=== PATIENT | female | born 1950 | race Caucasian/White ===

== ENCOUNTER 2019-09-19 08:16 | Outpatient (CLI) | payer MEDICARE, SELFPAY ==
--- NOTE | ~2019-09-19 | MM_ITS ---
EXAMINATION: MM screening anitha BI w madhu HISTORY: Screening mammogram TECHNIQUE: Craniocaudal and mediolateral oblique 3-D tomosynthesis images were obtained and synthetic 2-D images were generated. CAD analysis was submitted and interpreted. COMPARISON: 05/03/2018, 04/30/2016, 06/14/2014 bilateral digital screening mammogram examinations BREAST PARENCHYMAL COMPOSITION: The breasts are almost entirely fatty. FINDINGS: Occasional benign calcifications. There is no evidence of suspicious mass, calcification, o r architectural distortion to suggest malignancy in either breast. There has been no suspicious inter justine change. IMPRESSION: 1. No mammographic evidence of malignancy. 2. Recommend routine screening mammography in one year. BI-RADS Category 2: Benign finding(s). Reviewed, dictated and finalized at location A.
== END 2019-09-19 08:17 | disposition home or self-care (01) ==
LOC: ANHIMG 08:26
DX: Z12.31 Encounter for screening mammogram for malignant neoplasm of breast (principal)
CPT/HCPCS: 77063; 77067

== ENCOUNTER 2019-12-29 15:52 | Emergency (ER) | payer MEDICARE, SELFPAY ==
--- NOTE | ~2019-12-29 | XR_ITS ---
EXAMINATION: XR foot LT min 3V DATE: 12/29/2019 16:17 INDICATION: Left foot pain. TECHNIQUE: 4 views of left foot were obtained. COMPARISON: None. FINDINGS: Bone alignment is normal. No fracture. There is mild osteoarthritis of first metatarsophala ngeal joint. There are enthesophytes at the posterior and plantar aspects of calcaneal tuberosity. IMPRESSION: 1. Mild osteoarthritis of first metatarsophalangeal joint. Reviewed, dictated and finalized at location A.
--- NOTE | 2019-12-29 15:54 | ED.EXTPRO ---
HPI - Extremity Problem General Chief complaint: Extremity Injury, Lower Stated complaint: L/foot swollen Time Seen by Provider: 12/29/19 16:03 Source: patient and RN notes reviewed Mode of arrival: ambulatory Limitations: no limitations History of Present Illness HPI Narrative: 69-year-old female presents with concern for left foot swelling, pain. She denies any known injury or trauma. She reports dorsal foot pain. Reports pain at rest, worsening pain with weightbearing. She reports pain is sometimes relieved with ice and elevation. She denies any weakness, numbness, warmth, redness, open skin. Complaint: extremity swelling Related Data Home Medications Medication Instructions Recorded Confirmed fluoxetine 40 mg DAILY 02/25/19 02/25/19 propranolol 20 mg DAILY 02/25/19 02/25/19 simvastatin 20 mg DAILY 02/25/19 02/25/19 Allergies Allergy/AdvReac Type Severity Reaction Status Date / Time Penicillins Allergy Unknown Rash Verified 12/29/19 16:07 morphine AdvReac Unknown Nausea and Verified 12/29/19 16:07 Vomiting Review of Systems Review of Systems: Narrative: CONSTITUTIONAL: Denies malaise, chills, sweats, or fever. CARDIOVASCULAR: Denies chest pain, palpitations, or edema. RESPIRATORY: Denies cough or dyspnea. SKIN: Denies redness, bruising MUSCULOSKELETAL: Reports left foot pain and swelling NEUROLOGIC: Denies numbness, weakness All systems reviewed & are unremarkable except as noted in HPI and below PMFSH Social History Social History Gender identity (if verbalized by the patient): Female Comments At time of signature, agree with nursing past medical, surgical, social and family history. There is no relevant family history pertinent to the presenting complaint Exam Narrative: Exam Narrative: GENERAL: Well-appearing, well-nourished, and in no acute distress. HEAD: Normocephalic, atraumatic. EYES: PERRLA, conjunctivae clear NECK: Supple. CHEST: Speaks in full sentences. No respiratory distress. HEART: Regular rate and rhythm. Normal and equal peripheral pulses. EXTREMITIES: Left foot, digits of left foot have normal strength and sensation, normal range of motion. Mild dorsal edema without erythema or ecchymosis. 5/5 strength with ankle and digit flexion and extension. Normal sensation with sensitivity to light touch and pain. No open wounds, no skin tenting, no devitalized tissue or atrophy, no trophic changes, no obvious deformity, alignment normal, no point tenderness, nearby joints and structures intact. Distal pulses palpable and equal bilaterally, skin warm, dry, pink. Capillary refill less than 3 seconds. SKIN: Warm, dry, no rash. NEURO: Alert and oriented x3. PSYCH: Normal mood and affect Course Course Emergency Course: Patient is aware of diagnosis, understands and agrees to treatment plan. Anticipatory guidance given. Patient agrees to follow-up as directed and is aware of reasons to seek care at the emergency department. Portions of this record may have been created with voice recognition software Vital Signs Vital signs: Vital Signs Temperature 99.0 F 12/29/19 15:55 Pulse Rate 51 L 12/29/19 15:55 Respiratory Rate 17 12/29/19 15:55 Blood Pressure 132/59 L 12/29/19 15:55 Pulse Oximetry 96 12/29/19 15:55 Temperature 99.0 F 12/29/19 15:55 Pulse Rate 51 L 12/29/19 15:55 Respiratory Rate 17 12/29/19 15:55 Blood Pressure 132/59 L 12/29/19 15:55 Pulse Oximetry 96 12/29/19 15:55 Reviewed. Patient has history of hypertension MDM - Extremity (Nontraumatic) MDM Narrative Medical decision making narrative: Patients pain is consistent with musculoskeletal etiology. No signs of neurological or vascular compromise on exam. Compartments and tissues are soft without signs of compartment syndrome. Pain is felt appropriate for further evaluation on an outpatient basis. Imaging Data My impression: Images reviewed, interpreted by radiologist, agree, see report. Radiol
[2019-12-29 15:55] VITALS: BP 132/59; PULSE 51; RESP 17; TEMP 37.2; O2SAT 96
== END 2019-12-29 16:37 | disposition home or self-care (01) ==
PROVIDERS: Emergency Provider Nurse Practitioner; PCP Family Medicine
DX: M19.072 Primary osteoarthritis, left ankle and foot (principal); E78.00 Pure hypercholesterolemia, unspecified; F32.9 Major depressive disorder, single episode, unspecified
CPT/HCPCS: 73630; 99213; G0463

== ENCOUNTER 2020-06-27 10:27 | Outpatient (CLI) | payer MEDICARE, SELFPAY ==
--- NOTE | ~2020-06-27 | DEXA_ITS ---
Bone Density Report Name: Marilee Shirley Age: 70 Sex: Female Ethnicity: White Date of : 1950 Indication: osteopenia; height loss; asthma or emphysema; hysterectomy; Referring Provider: Baldemar, Jerrod Almeida Study: Bone densitometry was performed. Exam Date: June 27, 2020 Accession number: [id number] Bone Density: Region BMD T-score Z-score Classification AP Spine (L1-L4) 1.041 -0.1 2.2 Normal Femoral Neck (Left) 0.633 -1.9 0.0 Osteopenia Total Hip (Left) 0.776 -1.4 0.3 Osteopenia Total Hip Bilateral Avg 0.763 -1.5 0.2 Osteopenia Femoral Neck (Right) 0.619 -2.1 -0.2 Osteopenia Total Hip (Right) 0.748 -1.6 0.0 Osteopenia World Health Organization criteria for BMD impression classify patients as: Normal (T-score at or above -1.0), Osteopenia (T-score between -1.0 and -2.5), or Osteoporosis (T-score at or below -2.5). 10-year Fracture Risk(1): Major Osteoporotic Fracture 13% Hip Fracture 2.8% Reported Risk Factors: [place] (), Neck BMD=0.619, BMI=24.7 (1) FRAX(R) Version 3.08. Fracture probability calculated for an untreated patient. Fracture probability may be lower if the patient has received treatment. Previous Exams: Region Exam Age BMD T-score BMD Change BMD Change Date g/cm2 vs Baseline vs Previous AP Spine(L1-L4) 06/27/2020 70 1.041 -0.1 0.021(2.0%)# -0.018(-1.7%) 05/18/2018 68 1.059 0.1 0.039(3.8%)# 0.029(2.8%)* 04/30/2016 65 1.030 -0.2 0.010(1.0%)# 0.007(0.7%)# 09/05/2011 61 1.023 -0.2 0.003(0.3%)# -0.044(-4.1%)# 12/15/2007 57 1.067 0.2 0.047(4.6%)* 0.030(2.9%)* 12/08/2005 55 1.037 -0.1 0.017(1.6%) 0.017(1.6%) 08/02/2003 53 1.020 -0.2 Total Hip(Left) 06/27/2020 70 0.776 -1.4 0.007(0.9%)# 0.004(0.6%) 05/18/2018 68 0.772 -1.4 0.002(0.3%)# 0.000(0.0%) 04/30/2016 65 0.771 -1.4 0.002(0.2%)# -0.009(-1.2%)# 09/05/2011 61 0.781 -1.3 0.011(1.5%)# -0.005(-0.6%)# 12/15/2007 57 0.786 -1.3 0.016(2.1%) N/A 12/08/2005 55 N/A N/A 08/02/2003 53 0.769 -1.4 Total Hip(Right) 06/27/2020 70 0.748 -1.6 -0.032(-4.1%)# -0.009(-1.2%) 05/18/2018 68 0.757 -1.5 -0.023(-3.0%)# -0.021(-2.7%) 04/30/2016 65 0.778 -1.3 -0.002(-0.3%)# -0.017(-2.1%)# 09/05/2011 61 0.795 -1.2 0.015(1.9%)# 0.002(0.2%)# 12/15/2007 57 0.793 -1.2 0.013(1.7%) 0.033(4.3%)* 12/08/2005 55 0.760 -1.5 -0.020(-2.5%) -0.020(-2.5%) 08/02/2003 53 0.780 -1.3 *Denotes significan
== END 2020-06-27 10:28 | disposition home or self-care (01) ==
LOC: ANHIMG 10:30
PROVIDERS: PCP Family Medicine; Visit Provider Family Medicine
DX: Z13.820 Encounter for screening for osteoporosis (principal); E55.9 Vitamin D deficiency, unspecified; M81.0 Age-related osteoporosis without current pathological fracture; M85.852 Other specified disorders of bone density and structure, left thigh; M85.851 Other specified disorders of bone density and structure, right thigh
CPT/HCPCS: 77080

== ENCOUNTER 2020-09-21 07:15 | Outpatient (CLI) | payer MEDICARE, SELFPAY ==
--- NOTE | ~2020-09-21 | MM_ITS ---
EXAMINATION: MM screening anitha BI w madhu HISTORY: Screening mammogram TECHNIQUE: Craniocaudal and mediolateral oblique 3-D tomosynthesis images were obtained and synthetic 2-D images were generated. CAD analysis was submitted and interpreted. COMPARISON: No prior mammogram is available for comparison at this institution. BREAST PARENCHYMAL COMPOSITION: The breasts are almost entirely fatty. FINDINGS: History of bilateral breast reduction surgery 15 years ago. Occasional right breast benign calcifications. There is no evidence of suspicious mass, calcification , or architectural distortion to suggest malignancy in either breast. There has been no suspicious in terval change. IMPRESSION: 1. No mammographic evidence of malignancy. 2. Recommend routine screening mammography in one year. BI-RADS Category 2: Benign finding(s). Reviewed, dictated and finalized at location A.
== END 2020-09-21 07:16 | disposition home or self-care (01) ==
LOC: ANHIMG 07:17
PROVIDERS: PCP Family Medicine; Visit Provider Family Medicine
DX: Z12.31 Encounter for screening mammogram for malignant neoplasm of breast (principal)
CPT/HCPCS: 77063; 77067

== ENCOUNTER 2021-07-06 17:45 | Emergency (ER) | payer MEDICARE, SELFPAY ==
[2021-07-06 17:54] VITALS: BP 136/70; PULSE 60; RESP 18; TEMP 36.8; O2SAT 99
--- NOTE | 2021-07-06 18:02 | ED.URI ---
HPI - URI/Sore Throat General Chief Complaint: Upper Respiratory Infection Stated Complaint: Cough,Congestion Time Seen by Provider: 07/06/21 18:03 Source: patient Mode of arrival: ambulatory Limitations: no limitations History of Present Illness HPI Narrative: Marilee Shirley is a 71 yo female with a PMH of depression, hyothyroid,high cholesterol, heart palpitations, who comes to express care with cough and congestion. She states she has fits of coughing and she is coughing up some green mucus.patient states that she has had this for 10 days, has not been taking medication has been having a temperature running about 99 but no recent elevation. She has not called her primary care physician. Related Data Home Medications Medication Instructions Recorded Confirmed cetirizine [Allergy Relief 10 mg PO PRN PRN 07/06/21 07/06/21 (cetirizine)] fluoxetine 40 mg PO DAILY 07/06/21 07/06/21 fluticasone furoate-vilanterol 2 inh INHALATION DAILY 07/06/21 07/06/21 [Breo Ellipta] levothyroxine 50 mcg PO DAILY 07/06/21 07/06/21 metoprolol succinate 25 mg PO DAILY 07/06/21 07/06/21 simvastatin 20 mg PO DAILY 07/06/21 07/06/21 Allergies Allergy/AdvReac Type Severity Reaction Status Date / Time caffeine [Cafergot] Allergy Unknown chest Verified 07/06/21 17:56 pain/ palpitations. doxycycline Allergy Unknown yeast Verified 07/06/21 17:56 infection ergotamine Allergy Unknown chest Verified 07/06/21 17:56 pain/ palpitations. Penicillins Allergy Unknown Rash Verified 07/06/21 17:56 potassium chloride Allergy Unknown Hives Verified 07/06/21 17:56 morphine AdvReac Unknown Nausea and Verified 07/06/21 17:56 Vomiting Review of Systems Review of Systems: CONSTITUTIONAL: Denies fever, chills, sweats. EYES: Denies visual changes, redness, discharge. ENT: Denies rhinorrhea, congestion, sore throat, otalgia. States of sinus congestion CARDIOVASCULAR: Denies chest pain, palpitations, edema. RESPIRATORY: Denies dyspnea, wheezing, has cough GASTROINTESTINAL: Denies abdominal pain, nausea, vomiting, diarrhea. GENITOURINARY: Denies dysuria, hematuria, abnormal discharge SKIN: Denies rash or itching. NEUROLOGIC: Denies numbness, or focal weakness. PSYCHIATRIC: Denies anxiety or depression. [facility] Past Medical History Medical History (Updated 07/06/21 @ 18:26 by Octavia Bailey CNP) Depression Heart palpitations High cholesterol Hypothyroid Surgical History Surgical History History of atrial septal defect repair Social History Social History (Updated 07/06/21 @ 18:21 by Octavia Bailey CNP) Smoking status: Never smoker Alcohol intake: current Gender identity (if verbalized by the patient): Female Comments At time of signature, I agree with nursing past medical, surgical, social and family history. There is no relevant family history pertinent to the presenting complaint. Exam Narrative: GENERAL: This is a well-nourished, well-developed patient, in mild distress. HEAD: normocephalic, atraumatic. EYES: Sclera clear/white. Vision is grossly intact. EARS: External ears normal, Hearing grossly intact. NOSE: External nose normal without nasal discharge, nares without redness, no rhinorrhea. THROAT: Mucous membranes moist, NECK: Neck supple, non-tender CARDIOVASCULAR: Regular rate and rhythm without murmurs, gallops, or rubs. RESPIRATORY: Coarse to auscultation. Dry cough breath sounds equal bilaterally. No wheezes, rales, or rhonchi. GASTROINTESTINAL: Abdomen soft, non-tender, SKIN: warm, intact with no suspicious lesions or rash, good texture and turgor. NEURO: awake, alert, and oriented to person, place and time. There were no obvious focal neurologic abnormalities. Steady gait EXTREMITIES: Normal range of motion. BACK: Nontender without deformity Course Course Emergency Course: Patient comes a dry cough feels like she is coughing u
== END 2021-07-06 18:26 | disposition home or self-care (01) ==
PROVIDERS: Emergency Provider Nurse Practitioner; PCP Family Medicine
DX: R05.9 Cough, unspecified (principal); J01.10 Acute frontal sinusitis, unspecified; E78.00 Pure hypercholesterolemia, unspecified; A03.9 Shigellosis, unspecified; F32.A Depression, unspecified
CPT/HCPCS: 99213; G0463

== ENCOUNTER 2024-03-10 14:54 | Outpatient (CLI) | payer MEDICARE, SELFPAY ==
--- NOTE | ~2024-03-10 | DEXA_ITS ---
Bone Density Report Name: FUNMILAYO ESTRELLA Age: 73 Sex: Female Ethnicity: White Date of : 1950 Indication: osteopenia; height loss; asthma or emphysema; end stage renal disease; hysterectomy; Referring Provider: KIRK, ALEX Almeida Study: Bone densitometry was performed. Exam Date: March 10, 2024 Accession number: [id number] Bone Density: Region BMD T-score Z-score Classification AP Spine(L1-L4) 1.061 0.1 2.6 Normal Femoral Neck (Left) 0.602 -2.2 -0.1 Osteopenia Total Hip (Left) 0.834 -0.9 0.9 Normal Femoral Neck (Right) 0.613 -2.1 0.0 Osteopenia Total Hip (Right) 0.814 -1.1 0.8 Osteopenia Total Hip Mean 0.824 -1.0 0.9 Normal World Health Organization criteria for BMD impression classify patients as: Normal (T-score at or above -1.0), Osteopenia (T-score between -1.0 and -2.5), or Osteoporosis (T-score at or below -2.5). 10-year Fracture Risk(1): Major Osteoporotic Fracture 15% Hip Fracture 4.0% Reported Risk Factors: [place] (), Neck BMD=0.602, BMI=25.3 (1) FRAX(R) Version 3.08. Fracture probability calculated for an untreated patient. Fracture probability may be lower if the patient has received treatment. Previous Exams: Region Exam Age BMD T-score BMD Change BMD Change Date g/cm2 vs Baseline vs Previous AP Spine (L1-L4) 03/10/2024 73 1.061 0.1 0.038 (3.7%)# 0.020 (1.9%) 06/27/2020 70 1.041 -0.1 0.018 (1.8%)# -0.018 (-1.7%) 05/18/2018 68 1.059 0.1 0.036 (3.5%)# 0.029 (2.8%)* 04/30/2016 65 1.030 -0.2 0.007 (0.7%)# 0.007 (0.7%)# 09/05/2011 61 1.023 -0.2 Total Hip(Left) 03/10/2024 73 0.834 -0.9 0.053 (6.8%)# 0.058 (7.4%)* 06/27/2020 70 0.776 -1.4 -0.005 (-0.6%) 0.004 (0.6%) 05/18/2018 68 0.772 -1.4 -0.009 (-1.2%) 0.000 (0.0%) 04/30/2016 65 0.771 -1.4 -0.009 (-1.2%) -0.009 (-1.2%) 09/05/2011 61 0.781 -1.3 Total Hip(Right) 03/10/2024 73 0.814 -1.1 0.019 (2.4%)# 0.066 (8.8%)* 06/27/2020 70 0.748 -1.6 -0.047 (-5.9%) -0.009 (-1.2%) 05/18/2018 68 0.757 -1.5 -0.038 (-4.8%) -0.021 (-2.7%) 04/30/2016 65 0.778 -1.3 -0.017 (-2.1%) -0.017 (-2.1%) 09/05/2011 61 0.795 -1.2 *Denotes significance at 95% confidence level, LSC for AP Spine = 0.022 g/cm2, LSC for Total Hip = 0.027 g/cm2 # Denotes dissimilar scan types or analysis methods Clinical Information Provided by Patient: Has used the following medications: Vitamin D Has the following medical conditions: Asthma or Emphysema, End stage renal disease, Hysterectomy Patient maximum height was 63 Menopause Age: 40 Drinks caffeinated beverages Onset of menses at age 12 Number of children 4 Impression: The patient has low bone mass, based on the Left Femoral Neck T-score. The patient has an estimated ten-year risk of hip fracture of 4% and an estimated ten-year risk of major fracture of 15%, based on the WHO FRAX algorithm. No significant bone loss was observed. Discussion: BONE DENSITY IS LOW AT ONE OR MORE SKELETAL SITES. THE PATIENT'S BMD AND CLINICAL RISK FACTORS CONTRIBUTE TO THIS PATIENT'S INCREASED RISK OF FRACTURE. This patient's lowest T-score is low at one or more skeletal sites. It meets the World Health Organization's (WHO) criteria for ?low bone mass? (T-score between -1.0 and -2.5). The patient's 10-year risk of hip fracture as calculated by FRAX exceeds the threshold where pharmacological therapy is recommended by the National Osteoporosis Foundation (NOF). However, all treatment decisions require clinical judgment and consideration of individual patient factors, including patient preferences, comorbidities, previous drug use, risk factors not captured in the FRAX model (e.g., frailty, falls, vitamin D deficiency, increased bone turnover, interval significant decline in bone density) and possible under or overestimation of fracture risk by FRAX. The patient should follow a healthful lifestyle (good nutrition with adequate calcium and vitamin D, and appropriate weight-bearing exercise). Follow-Up: Consider a repeat BMD and Vertebral Fracture Assessment (VFA) exam in 2 years or sooner if medically necessary, to reassess this patient's status. Reported by: CAMILA on 03/10/2024 3:59:00 PM. Reviewed, dictated and finalized at location ALuis E MADERA
--- NOTE | ~2024-03-10 | MM_ITS ---
EXAMINATION: MM screening anitha BI w madhu HISTORY: Screening TECHNIQUE: Craniocaudal and mediolateral oblique 3-D tomosynthesis images were obtained and synthetic 2-D images were generated. CAD analysis was submitted and interpreted. COMPARISON: Comparison to multiple prior studies sequentially, with oldest reviewed study dated 03/2016. BREAST PARENCHYMAL COMPOSITION: Not Dense: The breasts are almost entirely fatty. FINDINGS: There is no evidence of suspicious mass, calcification, or architectural distortion to sugg est malignancy in either breast. There has been no suspicious interval change. IMPRESSION: 1. No mammographic evidence of malignancy. 2. Recommend routine screening mammography in one year. BI-RADS Category 1: Negative Reviewed, dictated and finalized at location B. 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
== END 2024-03-10 14:55 | disposition home or self-care (01) ==
PROVIDERS: PCP Family Medicine; Visit Provider Family Medicine
DX: Z12.31 Encounter for screening mammogram for malignant neoplasm of breast (principal); Z78.0 Asymptomatic menopausal state; Z90.710 Acquired absence of both cervix and uterus; Z98.890 Other specified postprocedural states
CPT/HCPCS: 77063; 77067; 77080

== ENCOUNTER 2024-06-09 13:24 | Emergency (ER) | payer MEDICARE, SELFPAY ==
[2024-06-09 13:33] VITALS: BP 115/51; PULSE 67; RESP 18; TEMP 36.6; O2SAT 97
--- NOTE | 2024-06-09 13:58 | ED.SKABFB ---
HPI - Skin/Abscess/Foreign Bdy General Chief complaint: Skin/Abscess/Foreign Body Stated complaint: Skin/Abscess/Foreign Body Time Seen by Provider: 06/09/24 13:40 Source: patient Mode of arrival: ambulatory Limitations: no limitations History of Present Illness HPI narrative: 74-year-old female presents with complaint of swollen, painful area to clitoris for the past 3 days. States I think I have a cyst . Denies drainage. Afebrile. All systems reviewed and negative except as noted above. Related Data Home Medications ?Medication ?Instructions ?Recorded ?Confirmed ?Last Taken ?Type cetirizine 10 mg capsule (Allergy 10 mg PO PRN PRN Allergy Symptoms 07/06/21 07/06/21 Unknown History Relief (cetirizine)) fluoxetine 40 mg capsule 40 mg PO DAILY 07/06/21 07/06/21 Unknown History fluticasone furoate 200 2 inh inhalation DAILY 07/06/21 07/06/21 Unknown History mcg-vilanterol 25 mcg/dose inhalation powder (Breo Ellipta) levothyroxine 50 mcg tablet 50 mcg PO DAILY 07/06/21 07/06/21 Unknown History metoprolol succinate 25 mg 25 mg PO DAILY 07/06/21 07/06/21 Unknown History tablet,extended release 24 hr simvastatin 20 mg tablet 20 mg PO DAILY 07/06/21 07/06/21 Unknown History Allergies Allergy/AdvReac Type Severity Reaction Status Date / Time caffeine (Cafergot) Allergy Unknown chest Verified 06/09/24 13:35 pain/ palpitations. doxycycline Allergy Unknown yeast Verified 06/09/24 13:35 infection ergotamine Allergy Unknown chest Verified 06/09/24 13:35 pain/ palpitations. Penicillins Allergy Unknown Rash Verified 06/09/24 13:35 potassium chloride Allergy Unknown Hives Verified 06/09/24 13:35 morphine AdvReac Unknown Nausea and Verified 06/09/24 13:35 Vomiting Review of Systems Review of Systems: CONSTITUTIONAL: Denies fever, chills, or sweats. EYES: Denies visual changes, redness, or discharge. ENT: Denies rhinorrhea, congestion, sore throat, or otalgia. CARDIOVASCULAR: Denies chest pain, palpitations, or edema. RESPIRATORY: Denies cough or dyspnea. GASTROINTESTINAL: Denies abdominal pain, nausea, vomiting, or diarrhea. GENITOURINARY: Denies dysuria or hematuria. SKIN: Denies rash or itching. Reports cyst to clitoris. MUSCULOSKELETAL: Denies back pain, joint pain, or myalgia. NEUROLOGIC: Denies headache, numbness, or weakness. PSYCHIATRIC: Denies anxiety or depression. All other systems reviewed are negative, except as documented in HPI. [facility] Past Medical History Medical History (Updated 06/09/24 @ 13:52 by Rosamaria Marx NP) High cholesterol Depression Hypothyroid Heart palpitations Surgical History Surgical History History of atrial septal defect repair Social History Social History (Updated 07/06/21 @ 18:21 by Octavia Bailey, GLYNN) Smoking status: Never smoker Alcohol intake: current Gender identity (if verbalized by the patient): Female Comments At time of signature, agree with nursing past medical, surgical, social and family history. There is no relevant family history pertinent to the presenting complaint. Exam Narrative: GENERAL: This is a well-nourished, well-developed patient, in no apparent distress. HEAD: normocephalic, atraumatic. EYES: PERRL. Sclera clear/white. Vision is grossly intact. EARS: External ears normal NOSE: External nose normal NECK: Neck supple, non-tender without lymphadenopathy, masses or thyromegaly. CARDIOVASCULAR: Regular rate and rhythm without murmurs, gallops, or rubs. RESPIRATORY: Clear to auscultation. Breath sounds equal bilaterally. No wheezes, rales, or rhonchi. SKIN: warm, Dry, intact with no suspicious lesions or rash, good texture and turgor. NEURO: awake, alert, and oriented to person, place and time. There were no obvious focal neurologic abnormalities. EXTREMITIES: No joint tenderness, effusion, or edema noted. : External Female Exam: external swelling (cyst-like lesion noted to clitoris with erythema and tenderness) Female genitals images:  1. cyst to clitoral area approx. 2cm diameter. no fluctuance or draiage. tender on palpation. mild erythema Course Course Level of Care: Express Care Visit Vital Signs Vital signs: Vital Signs Temperature 36.6 C 06/09/24 13:33 Pulse Rate 67 06/09/24 13:33 Respiratory Rate 18 06/09/24 13:33 Blood Pressure 115/51 L 06/09/24 13:33 Pulse Oximetry 97 06/09/24 13:33 Oxygen Delivery Room Air 06/09/24 13:33 Temperature 36.6 C 06/09/24 13:33 Pulse Rate 67 06/09/24 13:33 Respiratory Rate 18 06/09/24 13:33 Blood Pressure 115/51 L 06/09/24 13:33 Pulse Oximetry 97 06/09/24 13:33 Oxygen Delivery Room Air 06/09/24 13:33 reviewed MDM - Skin/Abscess/Foreign Bdy MDM Narrative Medical decision making narrative: Will prescribe patient antibiotics for infected cyst to clitoris. I&D not indicated as there is no fluctuance, firm on palpation. Recommend follow-up with nurse obgyn. Please be advised this is a medical document. It is intended for [id number] communication. It is written in medical language and may contain unfamiliar abbreviations or verbiage. Medical documents are intended to carry relevant information, facts as evident, and the clinical opinion of the practitioner at the time of the encounter. This report may have been done utilizing a voice recognition system. Attempts have been made to correct errors. However, there may be uncorrected grammatical, spelling, and recognition errors present. The file time of this note does not necessarily represent the time of service. Discharge Plan Discharge Clinical Impression: Infected cyst of skin Patient Disposition: Home, Self-Care Condition: Stable Instructions: Antibiotic Form, Cyst (ED) Additional Instructions: Take antibiotic as prescribed. Take tylenol every 6 to 8 hours as needed for pain. Keep clean with soap and water. Follow up with illuminating engineer. Patient Language: Libyan Prescriptions: New clindamycin HCl 300 mg capsule 300 mg PO Q8H 10 Days Qty: 30 0RF No Action fluoxetine 40 mg capsule 40 mg PO DAILY levothyroxine 50 mcg tablet 50 mcg PO DAILY simvastatin 20 mg tablet 20 mg PO DAILY Breo Ellipta 200-25 mcg/dose blister with device 2 inh INHALATION DAILY Allergy Relief (cetirizine) 10 mg capsule 10 mg PO PRN PRN (Reason: Allergy Symptoms) metoprolol succinate 25 mg tablet extended release 24 hr 25 mg PO DAILY prednisone 20 mg tablet 40 mg PO DAILY Qty: 10 0RF Follow-up/Referrals: Blanca,Kiah L., MD [Physician] - (follow up with illuminating engineer for further evaluation) PHYSICIAN,APPARATUS LINEMAN [Primary Care Provider] - Time of Disposition: 13:52
--- OUTSIDE RECORDS SUMMARY | 2024-06-09 15:04 | XMS_ITS | Clinical Summary ---
Author Organization [facility] Address [address] [place] [address] Care Team Providers Care Director Of Recreation Therapy Name Role Phone Mere Lindo MD Primary Care Provider [phone] -[phone] Social History Tobacco Use Types Packs/Day Years Used Date Smoking Tobacco: Never Assessed Comments Unknown Sex and Gender Information Value Date Recorded Sex Assigned at Not on file Legal Sex Female 7:06 PM CDT Gender Identity Not on file Sexual Orientation Not on file Plan of Treatment Health Maintenance Due Date Last Done Comments Hepatitis C 1966 Zoster Vaccines (1 of 2) 1998 Annual Medicare Wellness Visit 2013 Dexa Scan (General) 2013 COVID-19 Vaccine ( season) 2023 06/19/2020, 05/10/2020 Influenza Adult (#1) 2023 12/29/2019, 01/04/2019, 12/21/2017, Additional history exists DTaP, Tdap and Td Vaccines (2 - Td or Tdap) 01/24/2025 01/24/2015 Pneumococcal Vaccine: 65+ Years Completed 02/04/2023, 12/05/2016, 06/05/2015, Additional history exists RSV Immunization or 60+ Years Completed 02/16/2023 Meningococcal B Vaccine Aged Out No l onger eligible based on patient's age to complete this topic Meningococcal Vaccine Aged Out No shiloh issa eligible based on patient's age to complete this topic RSV Immunizations Under 20 Months Aged Out No longer eligible based on patient's age to complete this topic Insurance MEDICARE [facility] Care Teams Director Of Recreation Therapy Relationship Specialty Start Date End Date Mere Lindo MD PCP - General 02/20/13
--- OUTSIDE RECORDS SUMMARY | 2024-06-09 15:04 | XMS_ITS | Encounter Summary ---
Author Organization [facility] Facility Care Team Providers Care Timber Hewer Name Role Phone Jerrod Mcdermott DO Primary Care Provider + Ludmila Man RN Unavailable Encounter Details Date Type Department Care Team (Latest Contact Info) Description 07/01/2016 Orders Only [facility] CLINCONV ProviderOriana MD [address] [place] [address] Social History Tobacco Use Types Packs/Day Years Used Date Smoking Tobacco: Former Comments Unknown Sex and Gender Information Value Date Recorded Sex Assigned at Not on file Legal Sex Female 2:08 AM YOUTH MINISTER Gender Identity Female 08/07/2020 9:24 AM CDT Sexual Orientation Straight 08/07/2020 9: 24 AM CDT documented as of this encounter Plan of Treatment Not on file documented as of this encounter Procedures Procedure Name Priority Date/Time Associated Diagnosis Comments CARDIOLOGY REPORT 07/01/2016 12: 00 AM CDT documented in this encounter Results * CARDIOLOGY REPORT (07/01/2016 12:00 AM CDT) Anatomical Region Laterality Modality Other Narrative 07/01/2016 12:00 AM CDT Ordered by an unspecified provider. Historical Provider [facility] SONU DOWNEY Final Result documented in this encounter Visit Diagnoses Not on filedocumented in this encounter Additional Health Concerns Infection Onset Date Last Indicated Resolved Time COVID: Suspected 08/07/2020 08/07/2020 08/08/2020 6:26 AM CDT documented as of this encounter Care Teams Timber Hewer Relationship Specialty Start Date End Date Jerrod Mcdermott DO [address] [address] PCP - General 05/13/18 Ludmila Man, GHADA [address] [place] [address] [address] [place] [address] Chief Security And Safety Officer 03/11/24 04/10/24 documented as of this encounter
--- OUTSIDE RECORDS SUMMARY | 2024-06-09 15:04 | XMS_ITS | Clinical Summary ---
Author Organization [facility] Address [address] [place] [address] Phone Care Team Providers Care Information Security Engineer Name Role Phone Mere Lindo MD Primary Care Provider [phone]- [phone] Allergies Active Allergy Reactions Criticality Noted Date Comments Morphine Nausea and Vomiting,Hallucination Medium Penicillins Hives High 02/06/2009 Medications SIMVASTATIN PO Take by mouth. Active FLUOXETINE HCL (FLUOXETINE PO) Take by mouth. Active ALENDRONATE SODIUM (FOSAMAX PO) Take by mouth. Active propranolol (INDERAL) 10 mg Oral tablet Take 10 mg by mouth 3 times daily. Active cyanocobalamin (VITAMIN B-12) 1,000 mcg Oral Tab Take 1,000 mcg by mouth daily. Active Cholecalciferol, Vitamin D3, (VITAMIN D) 1,000 unit Oral Tab Take by mouth. Active oxyCODONE-acetam inophen (PERCOCET) 5-325 mg tablet Take 1 Tab by mouth every 4 hours as needed for Pain, Moderate. 60 Tab 0 03/15/2013 Active ibuprofen (MOTRIN) 600 mg tablet Take 1 Tab by mouth every 6 hours. 60 Tab 1 03/15/2013 Active prochlorperazine maleate (COMPAZINE) 5 mg tablet Take 1 Tab by mouth every 6 hours as needed for Nausea/Emes is. 20 Tab 1 03/15/2013 Active Active Problems Problem Noted Date Diagnosed Date Vulvar abscess 03/15/2013 Family History Medical History Relation Name Comments Other Father Cancer Mother Cancer Paternal Grandmother Relation Name Status Comments Father Mother Paternal Grandmother Social History Tobacco Use Types Packs/Day Years Used Date Smoking Tobacco: Former Cigarettes 0.3 30 1 04/30/1972 - 02/27/2003 Alcohol Use Standard Drinks/Week Comments Yes 1.7 (1 standard drink = 0.6 oz p ure alcohol) Comments No Sex and Gender Information Value Date Recorded Sex Assigned at Not on file Legal Sex Female 4:47 AM EQUIPMENT TECHNICIAN Gender Identity Not on file Sexual Orientation Not on file Occupation Industry Job Start Date Job End Date Not on file Not on file Not on file Not on file Last Filed Vital Signs Vital Sign Reading Time Taken Comments Blood Pressure 126/48 03/16/2013 6:29 PM EQUIPMENT TECHNICIAN Pulse 59 03/16/2013 6:29 PM EQUIPMENT TECHNICIAN Temperature 36.6 C (97.8 F) 03/16/2013 2:55 PM EQUIPMENT TECHNICIAN Respiratory Rate 18 03/16/2013 6:29 PM EQUIPMENT TECHNICIAN Oxygen Saturation 97% 03/16/2013 6:29 PM EQUIPMENT TECHNICIAN Inhaled Oxygen Concentration - - Weight 57.6 kg (127 lb) 03/16/2013 2:55 PM EQUIPMENT TECHNICIAN Height 157.5 cm (5' 2 ) 03/16/2013 2:55 PM EQUIPMENT TECHNICIAN Body Mass Index 23.23 03/16/2013 2:55 PM EQUIPMENT TECHNICIAN Plan of Treatment Health Maintenance Due Date Last Done Comments DTAP/TDAP/TD VACCINES (1 - Tdap) 1967 PNEUMOCOCCAL VACCINE 50+ YEARS (1 of 1 - PCV) 05/08/18 99 ZOSTER VACCINE (1 of 2) 1998 OSTEOPOROSIS SCREENING 2013 RSV VACCINE (60+ or ) (1 - 1-dose 75+ series) 2023 INFLUENZA VACCINE (#1) 2023 COLORECTAL SCREENING Discontinued 02/06/2009 Colorectal Cancer Screening Discontinued FIT-DNA Q 3 years Discontinued FIT/FOBT Q 1 year Discontinued Flex Sig/CT Colonography Q 5 years Discontinued Insurance [facility] BLUE ACCESS/TRUE BLUE PPO Advance Directives For more information, please contact: [phone] * Full Code (Latest Code Status on File) Date Activated Date Inactivated Comments 03/15/2013 7:33 PM 03/16/2013 12:49 AM * Full Code Date Activated Date Inactivated Comments 03/15/2013 6:33 PM 03/15/2013 7:33 PM * Full Code Date Activated Date Inactivated Comments 02/06/2009 8:09 AM 02/07/2009 2:02 AM Care Teams Information Security Engineer Relationship Specialty Start Date End Date Mere Lindo MD PCP - General 02/05/09
--- OUTSIDE RECORDS SUMMARY | 2024-06-09 15:04 | XMS_ITS | Referral Summary ---
Author Organization [facility] Address [address] [place] [phone] Care Team Providers Care Railroad Crane Operator Name Role Phone Jerrod Mcdermott DO Primary Care Provider + Encounters Date Type Department Care Team Description 06/09/[address] [facility] [address] [place] [phone] Jerrod Mcdermott DO 06/09/[address] [facility] [address] [place] [phone] Jerrod Mcdermott DO Recommendation Request 03/11/2024 Orders Only [facility] [address] [place] [address] Prema Melendez, RN 03/11/[address] [facility] [address] [place] [phone] Jerrod Mcdermott DO from Last 3 Months Allergies Active Allergy Reactions Criticality Noted Date Comments Morphine Hallucinations,Nausea & Vomiting Medium Penicillins Hives Medium 02/06/2009 Medications vitamin B complex tablet extended release daily 6 Active multivitamin,tx-ir td-Ia-QS-min 27-0.4 mg tablet 1 tablet Act iris ascorbic acid (VITAMIN C) 1,000 mg tablet daily 6 Active ibuprofen (ADVIL,MOTRIN) 200 mg tab/cap 1 tablet/capsule (200 mg total) by Not Applicable route Active albuterol HFA (PROVENTIL HFA,VENTOLIN HFA,PROAIR HFA) 90 mcg/actuation inhaler Inhale 2 puffs every 6 (six) hours as needed for wheezing 1 Inhaler 1 1 Active ipratropium-albute roL (DUO-NEB) 0.5-2.5 mg/3 mL nebulizer solution Inhale 3 mL 4 (four) times a day as needed 1 Active atorvastatin (LIPITOR) 80 mg tablet Take 1 tablet (80 mg total) by mouth daily 3 Active L.acidoph,plant/B. animal,long (PROBIOTIC PEARLS MAX POTENCY ORAL) 0 Active Eliquis 5 mg tablet Take 1 tablet (5 mg total) by mouth 2 (two) times a day 3 Active fluticasone propion-salmeteroL (ADVAIR DISKUS) 250-50 mcg/dose diskus inhaler Inhale 1 puff 2 (two) times a day 4 Active metoprolol XL (TOPROL-XL) 50 mg extended release tablet Take 1 tablet (50 mg total) by mouth daily Active levothyroxine (SYNTHROID) 50 mcg tabletIndications: Acquired hypothyroidism Take 1 tablet (50 mcg total) by mouth daily 90 tablet 3 4 Active escitalopram (LEXAPRO) 20 mg tablet Take 1 tablet (20 mg total) by mouth daily 90 tablet 3 4 025 Active Active Problems Problem Noted Date Diagnosed Date ABILIO (generalized anxiety disorder) 01/16/2023 PAF (paroxysmal atrial fibrillation) 01/16/2023 Special screening for malignant neoplasms, colon 06/27/2022 Overview (06/27/2022): Added automatically from request for surgery [id number] Asthma 01/30/2021 Elevated blood pressure read ing without diagnosis of hypertension 01/30/2021 Acquired hypothyroidism 05/29/2020 Family history of thyroid disease 05/24/2019 Eyelid cellulitis, right 02/12/2019 Assessment & Plan (02/12/2019 10:04 AM WEATHER ANCHOR): Overall Condition: New Acute Problem Treatment: New Medication: Continue Prescribed Eye drop along with Warm compressors. Start bactrim. Follow up with PCP/ophthalamalogist in 2 days, if not better. Follow up PRN Discussed signs and symptoms of Eye emergencies. 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 03/25/2018 History of DVT in adulthood 03/25/2018 Overview (01/03/2019): 2015 History of supraventricular tachycardia 03/25/20 18 Overview (01/03/2019): Dr Kerr (s/p Ablation) Obstructive sleep apnea (adult) (pediatric) 02/28 Acute meniscal tear of right knee 08/16/2016 Syncope and collapse 06/27/2016 Vitamin D deficiency 04/30/2016 Depression 06/05/2015 Hyperlipidemia 06/05/2015 Pulmonary embolism 05/30/2015 Dizziness 08/03/2014 Dyspnea on exertion 08/03/2014 Other chest pain 08/03/2014 Palpitations 08/03/2014 SVT (supraventricular tachycardia) 07/14/2014 Overview (01/03/2019): Added by CDS based on documentation of NSTEMI by the Attending. Vulvar abscess 03/15/2013 Benign neoplasm of kidney 03/08/2013 Personal history of transien t ischemic attack (TIA), and cerebral infarction without residual deficits Overview (12/08/2019): History of transient cerebral ischemia - (Added by TW Conv) Immunizations Immunization Administration Dates Next Due Influenza, Quad, Adjuvantate d, Intramuscular 01/30/2022,02/26/2021 Influenza, Quadrivalent, Margarette l Culture-based MDCK, Preservative Free, Antibiotic Free, Intramuscular 01/04/2019 Influenza, Quadrivalent, Hig h Dose, Preservative Free, Intrr 02/03/2020 Influenza, Trivalent, Adjuva nted, Intramuscular 02/03/2024 Influenza, Trivalent, High D ose, Split, Preservative Free, Intramuscular 12/21/2017,12/17/2016,12/25/2015,12/31,03/08/2014 Influenza, Trivalent, IM (MDV) 02/03/2013 Influenza, Unspecified 12/29/2019,2017,12/17/2016,12/24,12/31/2014,03/08/2014 Moderna SARS-CoV-2 Monovalen t Vaccination (12+ YRS) 05/10/2020 Pneumococcal Conjugate 7-Valent 04/04/2014 Pneumococcal Conjugate PCV 13 12/05/2016, 015 Pneumococcal Conjugate Pcv20 02/04/2023 Pneumococcal Polysaccharide PPV23 06/05/2015,08/2014 Pneumococcal, Unspecified 02/04/2023 RSV Vaccine, Pref, Recombina nt, Subunit, Adjuvanted, PF, IM (Arexvy) 02/16/2023 Tdap 01/24/2015 Social History Tobacco Use Types Packs/Day Years Used Date Smoking Tobacco: Former Cigarettes Q uit: 2006 Smokeless Tobacco: Never Tobacco Cessation:Counseling Given: Not Answered Alcohol Use Standard Drinks/Week Comments Not Currently 0 (1 standard drink = 0.6 oz pur e alcohol) AUDIT-C Answer Date Recorded Frequency of Alcohol Consumption Not on file 07/01/2022 Q2: How many drinks containi ng alcohol do you have on a typical day when you are drinking? 1 or 2 07/01/2022 Q3: How often do you have si x or more drinks on one occasion? Never 07/01/2022 PHQ-2 Answer Date Recorded PHQ-2 Total Score (If total score is 3 or more points, staff should administer the PHQ-9) 0 02/04/2024 Personal Safety Answer Date Recorded Have you ever been in or are you currently in a harmful physical or emotional relationship or is someone making you feel afraid or unsafe? Denies 07/10/2022 Comments Unknown Sex and Gender Information Value Date Recorded Sex Assigned at Not on file Legal Sex Female 2:08 AM WEATHER ANCHOR Gender Identity Female 08/07/2020 9:24 AM CDT Sexual Orientation Straight 08/07/2020 9: 24 AM CDT Last Filed Vital Signs Vital Sign Reading Time Taken Comments Blood Pressure 124/80 02/10/2024 10:25 AM WEATHER ANCHOR Pulse 58 02/10/2024 10:25 AM WEATHER ANCHOR Temperature 36.3 C (97.3 F) 02/10/2024 10:25 AM WEATHER ANCHOR Respiratory Rate 20 02/10/2024 10:25 AM WEATHER ANCHOR Oxygen Saturation 97% 02/10/2024 10:25 AM WEATHER ANCHOR Inhaled Oxygen Concentration - - Weight 63 kg (139 lb) 02/10/2024 10:25 AM WEATHER ANCHOR Height 158.8 cm (5' 2.5 ) 02/10/2024 10:25 AM CS T Body Mass Index 25.02 02/10/2024 10:25 AM WEATHER ANCHOR Plan of Treatment Not on file Procedures Procedure Name Priority Date/Time Associated Diagnosis Comments SCREENING MAMMOGRAM 2D BILATERAL Schedule Routine, Read Routine (OP Routine) 03/10/2024 8:38 AM WEATHER ANCHOR DEXA AXIAL SKELETON BONE DENSITY 1 OR MORE SITES Schedule Routine, Read Routine (OP Routine) 03/10/2024 COLONOSCOPY 07/10/2022 9:54 AM CDT HEPATITIS C ANTIBODY Routine 05/24/2019 9:44 AM WEATHER ANCHOR Need for hepatitis C screening test from Last 3 Months or Most Recently Relevant to Health Maintenance Results * Screening Mammogram 2D Bilateral (03/10/2024 8:38 AM WEATHER ANCHOR) SCRIBED BI-RADS 1 Anatomical Region Laterality Modality Breast Bilateral Mammography us Historical Provider MD QUESADA MAMMO PROCEDURES Marcia l Result * Dexa Axial Skeleton Bone Density 1 or 2 Site (03/10/2024) Anatomical Region Laterality Modality Body N/A Radiographic Kelly ging 03/10/2024 us Historical Provider MD QUESADA DXA PROCEDURES Final Result * COLONOSCOPY (07/10/2022 9:54 AM CDT) Anatomical Region Laterality Modality Other Narrative Procedure Note Jerrod Mcdermott, - 07/10/2022 9:54 AM CDT [facility] Patient Name: Marilee Shirley Procedure Date: 07/10/2022 9:54 AM Date of : 1950 Admit Type: Outpatient Age: 72 Gender: Female Attending MD: Jerrod Mcdermott D.O. Room: [facility] ENDOSCOPY ROOM 05 Note Status: Finalized Procedure: Colonoscopy Indications: Screening for colorectal malignant neoplasm Referring MD: Jerrod Mcdermott D.O. Providers: Jerrod Mcdermott D.O. Medicines: See the Anesthesia note for documentation of the administered medications Complications: No immediate complications. Estimated Blood Loss: Estimated blood loss: none. Procedure: The benefits, risks and alternatives of theprocedure and sedation were discussed and informed consentwas obtained. All questions were answered. Please referto the signed informed consent document in the medical record. The scope was passed under direct vision.The [id number] colonoscope was introduced through theanus and advanced to the cecum, identified byappendiceal orifice and ileocecal valve. The colonoscopy was performed without difficulty. The patient tolerated the procedure well. The quality of the bowel preparation was good. Prep was administered in asplit dose. Findings: The entire examined colon appeared normal on direct and retroflexion views. Impression: - The entire examined colon is normal on direct and retroflexion views. - No specimens collected. Recommendation: - Patient has a contact number available for emergencies. The signs and symptoms of potential delayed complications were discussed with thepatient. Return to normal activities tomorrow. Written discharge instructions were provided to thepatient. - Resume previous diet. - Continue present medications. - Repeat colonoscopy in 10 [facility]. Jerrod Mcdermott D.O. 07/10/2022 10:25:33 AM Number of Addenda: 0 Note Initiated On: 07/10/2022 9:54 AM Recognized by the [employer] for promoting quality in endoscopy Jerrod Mcdermott DO ENDOSCOPY PROCEDURES Fin al Result * Hepatitis C antibody (05/24/2019 9:44 AM WEATHER ANCHOR) Hep C Ab NONREACT NONREACTIVE [facility] Comment: Siemens CentaurXP using OSMAR (chemiluminescent immunoassay) technology. NONREACTIVE: Antibodies to Hepatitis C not detected. This does not exclude early acute Hepatitis C infection, possibility of exposure to Hepatitis C, antibodies below detection limit, or to lack of antibody reactivity to the antigen used in this assay. EQUIVOCAL: Antibodies to Hepatitis C may or may not be present. Sample to be confirmed by real-time PCR method. REACTIVE: Antibodies to Hepatitis C detected.Sample to be confirmed by real-time PCR method. Blood specimen (specimen) 05/24/2019 9:44 AM WEATHER ANCHOR 05/24/2019 10:05 AM WEATHER ANCHOR Narrative Resulting Agency Comment CLI Jerrod Mcdermott DO LAB MICROBIOLOGY - GENER AL ORDERABLES Final Result [address] [address], [facility] [phone] from Last 3 Months or Most Recently Relevant to Health Maintenance Insurance [facility] MEDICARE SUPPLEMENT MEDICARE [facility] MEDICARE SUPPLEMENT MEDICARE Care Teams Railroad Crane Operator Relationship Specialty Start Date End Date Jerrod Mcdermott DO [address] [place] [address] PCP - General 05/13/18
--- OUTSIDE RECORDS SUMMARY | 2024-06-09 15:04 | XMS_ITS | Encounter Summary ---
Author Organization [facility] Facility Care Team Providers Care Nuclear Equipment Operator Name Role Phone Jerrod Mcdermott DO Primary Care Provider + Ludmila Man RN Unavailable Encounter Details Date Type Department Care Team (Latest Contact Info) Description 03/05/2016 Orders Only [facility] CLINCONV ProviderOriana MD [address] [place] [address] Social History Tobacco Use Types Packs/Day Years Used Date Smoking Tobacco: Former Comments Unknown Sex and Gender Information Value Date Recorded Sex Assigned at Not on file Legal Sex Female 2:08 AM DIRECTOR OF GUIDANCE Gender Identity Female 08/07/2020 9:24 AM CDT Sexual Orientation Straight 08/07/2020 9: 24 AM CDT documented as of this encounter Plan of Treatment Not on file documented as of this encounter Procedures Procedure Name Priority Date/Time Associated Diagnosis Comments CARDIOLOGY REPORT 03/05/2016 12: 00 AM DIRECTOR OF GUIDANCE documented in this encounter Results * CARDIOLOGY REPORT (03/05/2016 12:00 AM DIRECTOR OF GUIDANCE) Anatomical Region Laterality Modality Other Narrative 03/05/2016 12:00 AM DIRECTOR OF GUIDANCE Ordered by an unspecified provider. Historical Provider [facility] SONU DOWNEY Final Result documented in this encounter Visit Diagnoses Not on filedocumented in this encounter Additional Health Concerns Infection Onset Date Last Indicated Resolved Time COVID: Suspected 08/07/2020 08/07/2020 08/08/2020 6:26 AM CDT documented as of this encounter Care Teams Nuclear Equipment Operator Relationship Specialty Start Date End Date Jerrod Mcdermott DO [address] [address] PCP - General 05/13/18 Ludmila Man, RN [address] [place] [address] [address] [place] [address] Cnc Mill Set Up Operator 03/11/24 04/10/24 documented as of this encounter
--- OUTSIDE RECORDS SUMMARY | 2024-06-09 15:04 | XMS_ITS | Encounter Summary ---
Author Organization [facility] Facility Care Team Providers Care Environmental Protection Specialist Name Role Phone Jerrod Mcdermott DO Primary Care Provider + Ludmila Man RN Unavailable Encounter Details Date Type Department Care Team (Latest Contact Info) Description 02/09/2017 Orders Only [facility] CLINCONV ProviderOriana MD [address] [place] [address] Social History Tobacco Use Types Packs/Day Years Used Date Smoking Tobacco: Former Comments Unknown Sex and Gender Information Value Date Recorded Sex Assigned at Not on file Legal Sex Female 2:08 AM GRANT WRITER Gender Identity Female 08/07/2020 9:24 AM CDT Sexual Orientation Straight 08/07/2020 9: 24 AM CDT documented as of this encounter Plan of Treatment Not on file documented as of this encounter Procedures Procedure Name Priority Date/Time Associated Diagnosis Comments CARDIOLOGY REPORT 02/12/2017 12: 00 AM GRANT WRITER documented in this encounter Results * CARDIOLOGY REPORT (02/12/2017 12:00 AM GRANT WRITER) Anatomical Region Laterality Modality Other Narrative 02/12/2017 12:00 AM GRANT WRITER Ordered by an unspecified provider. Historical Provider CV CARDIAC SERVICES SONU DOWNEY Final Result documented in this encounter Visit Diagnoses Not on filedocumented in this encounter Additional Health Concerns Infection Onset Date Last Indicated Resolved Time COVID: Suspected 08/07/2020 08/07/2020 08/08/2020 6:26 AM CDT documented as of this encounter Care Teams Environmental Protection Specialist Relationship Specialty Start Date End Date Jerrod Mcdermott DO [address] [address] PCP - General 05/13/18 Ludmila Man, RN [address] [place] [address] [address] [place] [address] Briefcase Sewer 03/11/24 04/10/24 documented as of this encounter
--- OUTSIDE RECORDS SUMMARY | 2024-06-09 15:04 | XMS_ITS | Encounter Summary ---
Author Organization [facility] Facility Care Team Providers Care Library Associate Name Role Phone Jerrod Mcdermott DO Primary Care Provider + Ludmila Man RN Unavailable Encounter Details Date Type Department Care Team (Latest Contact Info) Description 11/05/2017 Orders Only [facility] CLINCONV ProviderOriana MD [address] [place] [address] Social History Tobacco Use Types Packs/Day Years Used Date Smoking Tobacco: Former Comments Unknown Sex and Gender Information Value Date Recorded Sex Assigned at Not on file Legal Sex Female 2:08 AM COMPUTER SYSTEM SPECIALIST Gender Identity Female 08/07/2020 9:24 AM CDT Sexual Orientation Straight 08/07/2020 9: 24 AM CDT documented as of this encounter Plan of Treatment Not on file documented as of this encounter Procedures Procedure Name Priority Date/Time Associated Diagnosis Comments SCAN - LABS 11/05/2017 12:00 AM CDT documented in this encounter Results * SCAN - LABS (11/05/2017 12:00 AM CDT) Narrative 11/05/2017 12:00 AM CDT Ordered by an unspecified provider. Historical Provider Final Res ult documented in this encounter Visit Diagnoses Not on filedocumented in this encounter Additional Health Concerns Infection Onset Date Last Indicated Resolved Time COVID: Suspected 08/07/2020 08/07/2020 08/08/2020 6:26 AM CDT documented as of this encounter Care Teams Library Associate Relationship Specialty Start Date End Date Jerrod Mcdermott DO [address] [address] PCP - General 05/13/18 Ludmila Man, RN [address] [place] [address] [address] [place] [address] Private Branch Exchange Service Advisor 03/11/24 04/10/24 documented as of this encounter
--- OUTSIDE RECORDS SUMMARY | 2024-06-09 15:04 | XMS_ITS | Continuity of Care Document ---
Author Organization [facility] Address [address] [place] [address] [address] [place] [address] Phone Care Team Providers Care Goring Cutter Name Role Phone Laury Martinez Unavailable Unavailable Procedures Procedure Date Eye Exam Established Pt Advance Directives Directive Yes / No Effective Date File Name No Information Encounters Encounter Description Practice Location Reason(s) For Visit Diagnoses Date Provider Providers Copied on Encounter [facility], [address], [place], [place], [id number], [place] tel:[phone] [facility] No Information [address]. [address] [facility] [address] , [address], [place], [address], [place]. tel:[phone] Referring Provider: Ora Lujan OD, [address] [facility], [place], [address]. tel:[phone] Family History Family Member Type Diagnosis Age At Onset No Information Payers Payer name Insurance type Covered constitution party ID Authoriza tion(s) No Information Social History Type Description Quantity Date Captured Comments Sex Female Smoking Status No Information Chief Complaint And Reason For Visit No Information Reason For Referral Reason For Referral No Information History Of Present Illness Encounter Date Complaint History Of Prese nt Illness No Information Functional Status Date Functional Assessmen t No Information Instructions Date Instruction Additional Infor mation No Information Assessments Type Assessment Date No Information Patient Care Teams Name Effective Dates (start - stop) Status Members No Information
--- OUTSIDE RECORDS SUMMARY | 2024-06-09 15:04 | XMS_ITS | Encounter Summary ---
Author Organization [facility] Healthcare Address [address] [place] [address] Care Team Providers Care Chemist Steroids Name Role Phone Jerrod Mcdermott DO Primary Care Provider + Reason for Visit * Reason Onset Date Comments Vaginal Pain 06/09/2024 Encounter Details Date Type Department Care Team ([facility] st Contact Info) Description 06/09/2024 Nurse Triage [facility] Medical Group Primary Care [address] [facility] [address] [place] [phone] Jerrod Mcdermott DO [address] [address] Social History Tobacco Use Types Packs/Day Years Used Date Smoking Tobacco: Former Cigarettes Q uit: 2006 Smokeless Tobacco: Never Alcohol Use Standard Drinks/Week Comments Not Currently [...] on file 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 Denies injury, fever. States she has a bloody discharge. Rates her pain as severe. She has taken a sitz bath, applied polysporin, hydrogen peroxide. C/O itching. No appt available in the office. Patient will go to local . Care Advice Given: Keep area clean, Tylenol as needed for pain Educated patient to call back if worsens, new symptoms develop or has further questions/concerns Reason for Disposition SEVERE vaginal pain and not improved 2 hours after pain medicine Protocols used: Vaginal Slzmntvy-Efgzx-TX * Telephone Encounter - Ai Michele RN - 06/09/2024 11:02 AM CDT Regarding: Vaginal pain severe ----- Message from Praful Bueno sent at 06/09/2024 10:54 AM CDT ----- Symptom Based Call Chief Complaint(s): vaginal bleeding lumps, severe pain Duration: 3 days What type of symptom(s) is the patient experiencing? Red Flag. Is the patient concerned they are experiencing a medical emergency requiring an ambulance? No Additional Comments: Patient stated she has put hydrogen peroxide and took a sitz bath Does message need to be routed? Yes-Action Needed documented in this encounter Plan of Treatment Not on file documented as of this encounter Visit Diagnoses Not on filedocumented in this encounter Care Teams Chemist Steroids Relationship Specialty Start Date End Date Jerrod Mcdermott DO [address] [place] [address] PCP - General 05/13/18 documented as of this encounter
--- OUTSIDE RECORDS SUMMARY | 2024-06-09 15:04 | XMS_ITS | Encounter Summary ---
Author Organization [facility] Healthcare Address [address] [place] [address] Care Team Providers Care Bakery Machine Mechanic Supervisor Name Role Phone Jerrod Mcdermott DO Primary Care Provider + Reason for Visit * Reason Onset Date Comments Recommendation Request 06/09/2024 Encounter Details Date Type Department Care Team ([facility] st Contact Info) Description 06/09/2024 Telephone [facility] Medical Group Primary Care [address] [facility] [address] [place] [phone] Jerrod Mcdermott DO [address] [address] Recommendation Request Social History Tobacco Use Types Packs/Day Years [...] on file 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 Specialty: OBGYN Why does the patient want to go to this specialist? Cysts all over vaginal area Additional Comments/Concerns: Patient is requesting an OBGYN near her Does message need to be routed? Yes-Action Needed documented in this encounter Plan of Treatment Not on file documented as of this encounter Visit Diagnoses Not on filedocumented in this encounter Care Teams Bakery Machine Mechanic Supervisor Relationship Specialty Start Date End Date Jerrod Mcdermott DO [address] [address] PCP - General 05/13/18 documented as of this encounter
--- OUTSIDE RECORDS SUMMARY | 2024-06-09 15:05 | XMS_ITS | Encounter Summary ---
Author Organization [facility] Address [address] [place] [address] Care Team Providers Care Stop Attacher Name Role Phone Jerrod Mcdermott DO Primary Care Provider [phone] Martin Jones MD Unavailable [phone] Dat Kerr MD Unavailable [phone] Jerrod Hernandez MD Unavailable [phone] Reason for Visit * Reason Onset Date Comments Medication Issue 06/08/2024 PA fax for Breo that is not needed Encounter Details Date Type Department Care Team (Late st Contact Info) Description 06/08/2024 Telephone [facility] - Pulmonology [address] [facility] [address] [place] [address] [place] [address] [facility] [address] [place] [address] Medication Issue (PA fax for Breo that is not needed) Social History Tobacco Use Types Packs/Day Years Used Date Smoking Tobacco: Former Cigarettes 0.5 35 0 07/13/1965 - 07/13/2000 Smokeless Tobacco: Never Alcohol Use Standard Drinks/Week Comments Not Currently 7 (1 standard drink = 0.6 oz pur e alcohol) Overall Financial Resource Strain (CARDIA) Answe r Date Recorded How hard is it for you to pa y for the very basics like food, housing, medical care, and heating? Not hard at all 07/15/2022 PHQ-2 Answer Date Recorded Patient Health Questionnaire-2 Score 0 02/03/2024 [facility] [place] [facility] - Occupational Stress Questionnaire Answer Date Recorded Do you feel stress - tense, restless, nervous, or anxious, or unable to sleep at night because your mind is troubled all the time - these days? Not at all 07/15/2022 Hunger Vital Sign Answer Date Recorded Within the past 12 months, y ou worried that your food would run out before you got the money to buy more. Never true 07/16/19 23 Within the past 12 months, t he food you bought just didn't last and you didn't have money to get more. Never true 07/15/2022 PRAPARE - Transportation Answer Date Re corded In the past 12 months, has l ack of transportation kept you from medical appointments or from getting medications? No 06/28 In the past 12 months, has l ack of transportation kept you from meetings, work, or from getting things needed for daily living? No 07/15/2022 Housing Stability Vital Sign Answer Frank e Recorded In the last 12 months, was t here a time when you were not able to pay the mortgage or rent on time? No 07/15/2022 In the last 12 months, how many places have you lived? 1 07/15/2022 In the last 12 months, was t here a time when you did not have a steady place to sleep or slept in a care home (including now)? No 07/15/2022 Sex and Gender Information Value Date Recorded Sex Assigned at Not on file Gender Identity Not on file Sexual Orientation Not on file documented as of this encounter Functional Status Functional Status Response Date of Assess ment Is person deaf or have serious hearing difficult y? No 07/15/2022 Is person blind or have serious difficulty seein g? No 07/15/2022 Does person have serious dif ficulty walking/climbing stairs? No 07/15/2022 Does person have difficulty dressing/bathing? No 07/15/2022 Does person have difficulty doing errands alone? No 07/15/2022 Cognitive Status Response Date of Assessm ent Does person have difficulty concentrating/remembering/making decisions? No 07/15/2022 documented as of this encounter Miscellaneous Notes * Telephone Encounter - Mello Smart - 06/08/2024 12:18 PM CDT Medication Prior Authorization Medication: Fluticasone-Vilanterol 200 Pharmacy started Cover My meds and keep sending faxes, but it's no tneed [employer] is still on formulary And the rejected claim note would have told them that Called [phone] and spoke to [facility] and they had already corrected it, no need for PA fax documented in this encounter Plan of Treatment Upcoming Encounters Date Type Department Care Team (Late st Contact Info) Description 12/14/2024 10:20 AM CDT Office Visit [facility] [address] [facility] [address] [place] [address] [place] [address] [facility] [address] [place] [id number] 02/01/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 [facility] - Pulmonology [address] [facility] [address] [place] [address] [place] [address] [facility] [address] [place] [address] documented as of this encounter Visit Diagnoses Not on filedocumented in this encounter Care Teams Stop Attacher Relationship Specialty Start Date End Date Jerrod Mcdermott DO [address] [place] [address] PCP - General Family Medicine 07/12/18 [place] [address] [facility] [address] [place] [address] Pulmonary Disease 08/15/20 Dat Kerr MD [address] [place] [address] Cardiovascular Disease 08/15/20 Jerrod Hernandez MD [address] [place] [address] Urology 08/15/20 documented as of this encounter
--- OUTSIDE RECORDS SUMMARY | 2024-06-09 15:05 | XMS_ITS | CONTINUITY OF CARE DOCUMENT ---
Author Name warren kelley Address Unknown Organization [facility] Address [address] [facility] [address] [place] [address] Phone [phone] Care Team Providers Care Freight Loader Name Role Phone Dat Kerr MD Unavailable [phone] ALEX BRADLEY DO Unavailable [phone] ALEX BRADLEY DO Unavailable PROBLEMS Condition Status Date Provider Notes Pulmonary embolism RLL by CT scan at [facility] 16 called active Dat Kerr MD Family History Coronary Hear t Disease female < 65: completed - Dat Kerr MD PSVT, s/p EPS right atrial tachycardia related to ASD scar, ablation Dr. Guillory active Dat Kerr MD Chest pain non-cardiac, nml cors on cath 06/2014 active Dat Kerr MD Palpitations active Dat Kerr MD Dizziness active Dat Kerr MD Dyspnea on exertion active Dat Bueno Hypercholesterolemia completed - Dat Kerr MD Hypercholesterolemia active Dat Kerr MD Syncope and collapse active Dat Kerr MD ANN, moderate, doesn't use bipap active Narendra Kerr MD Mitral regurgitation, moderate active Edgar Kerr MD Aortic valve sclerosis active Dat zhang MD Asthma, adult-onset active Dat Bueno Elevated blood pressure read ing without diagnosis of hypertension active Dat Kerr MD Tricuspid regurgitation, moderate active Fan Kerr MD ENCOUNTERS Date Type Provider Location Encounter Diag nosis - In-person encounter Office Visit [facility] ANN, moderate, doesn't use bipapMitral regurgitation, moderateTricuspid regurgitation, moderate - In-person encounter Office Visit [facility] Asthma, adult-onsetElevated blood pressu re reading without diagnosis of hypertension - In-person encounter Office Visit [facility] Chest pain non-cardiac, nml cors on cath 06/2014 - In-person encounter Office Visit [facility] - In-person encounter Office Visit [facility] Family History Coronary Heart Disease female < 65:ANN, moderate, doesn't use bipapMitral regurgitation, moderateAortic valve sclerosis - In-person encounter Office Visit [facility] - In-person encounter Office Visit [facility] - In-person encounter Office Visit [facility] - In-person encounter Office Visit [facility] - In-person encounter Office Visit [facility] Syncope and collapse - In-person encounter Office Visit [facility] HypercholesterolemiaHypercholesterolemia - In-person encounter Office Visit [facility] - In-person encounter Office Visit [facility] - In-person encounter Office Visit [facility] - In-person encounter Office Visit [facility] - In-person encounter Office Visit [facility] - In-person encounter Office Visit [facility] - In-person encounter Office Visit Dat Kerr MD [facility] PSVT, s/p EPS right atrial tachycardia related to ASD scar, ablation Dr. Guillory Ches pain non-cardiac, nml cors on cath 06/2014PalpitationsDizzinessDyspnea on exertion VITAL SIGNS Date Observation Value Provider Body Mass Index (Ratio) 23.38 kg/m2 Roberto Kerr MD blood pressure, diastolic 68 mm[Hg] Janette nkLogic blood pressure, systolic 128 mm[Hg] Daphne kLogic blood pressure, diastolic 68 mm[Hg] Ma rsha O'Candelario blood pressure, systolic 128 mm[Hg] Mar [facility] O'Candelario oxygen saturation, oximetry 97 % [facility] O'Candelario respiratory rate E&M 16 /min Jodee O'Candelario pulse rate 67 /min [facility] O'Candelario blood pressure, resting No [place] teague O'Candelario weight E&M 132 [lb_av] Jodee O'Candelario height E&M 63 [in_i] Jodee O'Candelario Body Mass Index (Ratio) 23.91 kg/m2 Roberto Kerr MD blood pressure, diastolic 63 mm[Hg] Ch astity Esau blood pressure, systolic 152 mm[Hg] Diane stity Esau oxygen saturation, oximetry 97 % Chastity Esau pulse rate 55 /min Chastity Esau weight E&M 135 [lb_av] Chastity Esau respiratory rate E&M 16 /min Chastit y Esau height E&M 63 [in_i] [facility] Body Mass Index (Ratio) 23.91 kg/m2 Roberto Kerr MD blood pressure, diastolic 84 mm[Hg] Fe deondre Rivas blood pressure, systolic 130 mm[Hg] Fel icia Rivas oxygen saturation, oximetry 95 % Verena Rivas respiratory rate E&M 16 /min Verena Rivas pulse rate 56 /min Verena Rivas temperature E&M 97.5 [degF] Verena Rivas weight E&M 135 [lb_av] Verena Rivas height E&M 63 [in_i] Verena Rivas Body Mass Index (Ratio) 24.09 kg/m2 Roberto Kerr MD oxygen saturation, oximetry 98 % Dianestity Esau respiratory rate E&M 16 /min Chastit y Esau pulse rate 53 /min Chastity Esau blood pressure, diastolic 82 mm[Hg] Ch astity Esau blood pressure, systolic 130 mm[Hg] Diane stity Esau weight E&M 136 [lb_av] Chastity Esau height E&M 63 [in_i] [facility] Body Mass Index (Ratio) 23.27 kg/m2 Roberto Kerr MD blood pressure, cuff size regular Rh jamie East blood pressure, diastolic 70 mm[Hg] Rh jamie [place] blood pressure, systolic 120 mm[Hg] Rho taiwo East oxygen saturation, oximetry 96 % [place] respiratory rate E&M 16 /min [place] pulse rate 60 /min [place] weight E&M 131.4 [lb_av] [place] height E&M 63 [in_i] [place] Body Mass Index (Ratio) 23.56 kg/m2 Roberto Kerr MD blood pressure, diastolic 60 mm[Hg] Alex ayala Kita blood pressure, systolic 130 mm[Hg] Rho taiwo Kita oxygen saturation, oximetry 97 % [place] respiratory rate E&M 18 /min [place] pulse rate 54 /min [place] weight E&M 133 [lb_av] [place] height E&M 63 [in_i] [place] Body Mass Index (Ratio) 23.91 kg/m2 Kahlil Watkins MD blood pressure, diastolic 70 mm[Hg] Jaswinder Jiménez blood pressure, systolic 102 mm[Hg] David jimenez Jessy oxygen saturation, oximetry 98 % [facility] E&M 16 /min [facility] pulse rate 55 /min [facility] weight E&M 135 [lb_av] [facility] height E&M 63 [in_i] [facility] Body [facility] Index (Ratio) 23.56 kg/m2 Roberto Kerr MD blood pressure, cuff size regular Olya Khan blood pressure, diastolic 60 mm[Hg] Olya Khan blood pressure, systolic 112 mm[Hg] Pawan Khan oxygen saturation, oximetry 98 % Danna Khan respiratory rate E&M 16 /min Danna Khan pulse rate 52 /min Danna Khan weight E&M 133 [lb_av] Danna Khan height E&M 63 [in_i] Danna Khan Body Mass Index (Ratio) 23.56 kg/m2 Kahlil Watkins MD blood pressure, diastolic 76 mm[Hg] Mitul Marroquin blood pressure, systolic 120 mm[Hg] Willy Lingricel oxygen saturation, oximetry 97 % Sarah Lingricel pulse rate 56 /min Sarah monsalve respiratory rate E&M 18 /min Willyyash ogdenmimi Rileygricel weight E&M 133 [lb_av] Sarah monsalve height E&M 63 [in_i] Sarahgabriela monsalve Body Mass Index (Ratio) 23.38 kg/m2 Roberto Kerr MD blood pressure, diastolic 60 mm[Hg] Duncan Dawn blood pressure, systolic 115 mm[Hg] Liv Dawn oxygen saturation, oximetry 99 % Liv Dawn respiratory rate E&M 16 /min Liv waldrop pulse rate 51 /min Liv Dawn weight E&M 132 [lb_av] Liv Dawn blood pressure, resting No Liv Dawn height E&M 63 [in_i] Liv Dawn Body Mass Index (Ratio) 22.85 kg/m2 Roberto Kerr MD blood pressure, diastolic 79 mm[Hg] Va susannah Wilkerson NP blood pressure, systolic 112 mm[Hg] Radha abbie Wilkerson NP pulse rate 53 /min Katey Huber oxygen saturation, oximetry 97 % Katey Huber respiratory rate E&M 18 /min Katey Huber blood pressure, cuff size regular Kaveh Huber weight E&M 129 [lb_av] Katey Huber height E&M 63 [in_i] Katey Huber blood pressure, diastolic 90 mm[Hg] Ma rsha O'Candelario blood pressure, systolic 128 mm[Hg] Renetta good O'Candelario pulse rate 53 /min Jodee O'Candelario oxygen saturation, oximetry 97 % Jodee O'Candelario respiratory rate E&M 16 /min Jodee O'Candelario Body Mass Index (Ratio) 23.20 kg/m2 Oracio Thompson'Candelario weight E&M 131 [lb_av] Jodee O'Candelario blood pressure, diastolic 68 mm[Hg] Dennis Knappby blood pressure, systolic 116 mm[Hg] Travis Knappby pulse rate 54 /min Maxine Knappby oxygen saturation, oximetry 99 % Maxine Knappby respiratory rate E&M 16 /min Maxine Brooklyn Body Mass Index (Ratio) 22.57 kg/m2 Johnathon Knappby weight E&M 127.4 [lb_av] Maxine Knappby blood pressure, diastolic 77 mm[Hg] Kaveh estrada Huber blood pressure, systolic 112 mm[Hg] Collin dueñas Huber pulse rate 58 /min Katey Huber oxygen saturation, oximetry 99 % Katey Huber respiratory rate E&M 18 /min Katey Huber Body Mass Index (Ratio) 22.85 kg/m2 Sonal ndiaye Huber weight E&M 129 [lb_av] Katey Huber blood pressure, diastolic 70 mm[Hg] Kaveh estrada Huber blood pressure, systolic 110 mm[Hg] Collin dueñas Huber pulse rate 55 /min Katey Huber oxygen saturation, oximetry 98 % Katey Huber respiratory rate E&M 17 /min Katey Huber Body Mass Index (Ratio) 23.20 kg/m2 Sonal ca Huber weight E&M 131 [lb_av] Katey Huber blood pressure, diastolic, left arm 62 mm [Hg] Jodee O'Candelario blood pressure, systolic, left arm 98 mm[ Hg] Jodee O'Candelario blood pressure, diastolic, right arm 60 m m[Hg] Jodee O'Candelario blood pressure, systolic, right arm 100 m m[Hg] Jodee O'Candelario Body Mass Index (Ratio) 23.03 kg/m2 Oracio teague O'Candelario blood pressure, diastolic 62 mm[Hg] Hector barnett O'Candelario blood pressure, systolic 98 mm[Hg] Renetta sha O'Candelario pulse rate 69 /min Jodee O'Candelario oxygen saturation, oximetry 95 % Jodee O'Candelario respiratory rate E&M 16 /min Jodee O'Candelario weight E&M 130 [lb_av] Jodee O'Candelario Body Mass Index (Ratio) 22.49 kg/m2 Oracio teague O'Candelario pulse rate 50 /min Jodee O'Candelario oxygen saturation, oximetry 97 % Jodee O'Candelario respiratory rate E&M 16 /min Jodee O'Candelario blood pressure, diastolic 78 mm[Hg] Hector barnett O'Candelario blood pressure, systolic 110 mm[Hg] Renetta good O'Candelario weight E&M 127 [lb_av] Jodee O'Candelario Body Mass Index (Ratio) 22.67 kg/m2 Monica Hair blood pressure, phillips tolic, second observation 68 mm[Hg] Ana Hair blood pressure, syst olic, second observation 104 mm[Hg] Ana Hair blood pressure, diastolic 68 mm[Hg] Na talcarol Hair blood pressure, systolic 104 mm[Hg] Radha paulina Hair pulse rate 69 /min Ana Hair oxygen saturation, oximetry 94 % Ana Hair respiratory rate E&M 17 /min Ana Hair weight E&M 128 [lb_av] Ana Hair height E&M 63 [in_i] Ana Hair ALLERGIES Allergy Name Onset Date Reaction Criticality Status MORPHINE Low Criticality active PENICILLIN Low Criticality active RESULTS Date Observation Value Provider Reference Range Interpretation Location erythrocyte sedimentation rate 30 mm/h LinkLogic < OR = 30 Normal [facility] [id number] Swetha WILDER [id number] [facility] brain natriuretic peptide 349 pg/mL LinkLogic 0-301 High D-dimer quantitative mcg/mL 0.66 MG/L FEU LinkLogic 0.00-0.49 High lipoprotein, beta, serum, point, quantitative, calculated 70 mg/dL LinkLogic 0-99 very low density lipoproteins 18 mg/dL LinkLogic 5-40 HDL cholesterol, serum 89 mg/dL LinkLogic >39 triglyceride, serum, random 89 mg/dL LinkLogic 0-149 cholesterol, serum 177 mg/dL LinkLogic 326-340 4124/08 /09 calcium, serum 9.7 mg/dL LinkLogic 8.7-10.3 carbon dioxide, venous blood 25 mmol/L LinkLogic 20-29 chloride, serum 101 mmol/L LinkLogic 96-106 potassium, serum 4.5 mmol/L LinkLogic 3.5-5.2 sodium, serum 140 mmol/L LinkLogic 787-078 6027/08 /09 urea nitrogen/creatin ine ratio, serum 15 LinkLogic 12-28 eGFR if 97 mL/min/{ 1.73_m2} LinkLogic >59 eGFR if not 84 mL/min/{ 1.73_m2} LinkLogic >59 creatinine, serum 0.73 mg/dL LinkLogic 0.57-1.00 urea nitrogen, blood 11 mg/dL LinkLogic 8-27 blood glucose, random 80 mg/dL LinkLogic 65-99 platelet count 210 X10E3/UL LinkLogic 317-419 5246/08 /08 red blood cell distribution width 12.4 % LinkLogic 12.3-15.4 mean corpuscular hemoglobin concentration, RBC 33.3 G/DL LinkLogic 31.5-35.7 mean corpuscular hemoglobin, RBC 31.3 pg LinkLogic 26.6-33.0 mean corpuscular volume, RBC 94 fL LinkLogic 79-97 hematocrit, blood 40.6 % LinkLogic 34.0-46.6 hemoglobin, blood 13.5 g/dL LinkLogic 11.1-15.9 erythrocyte (RBC) count 4.31 X10E6/UL LinkLogic 3.77-5.28 leukocyte count, blood 5.8 X10E3/UL LinkLogic 3.4-10.8 D-dimer quantitative mcg/mL 0.68 MCG/ML FEU LinkLogic <0.50 High urea nitrogen/creatin ine ratio, serum 10.9 LinkLogic - Estimated Glomerular Filtration Rate (calc) 52.7 (?) LinkLogic 59.0 - Low chloride, serum 100.1 mmol/L LinkLogic 98.0 - 107.0 potassium, serum 4.2 mmol/L LinkLogic 3.5 - 5.1 sodium, serum 141.0 mmol/L LinkLogic 136.0 - 145.0 creatinine, serum 1.1 mg/dL LinkLogic 0.5 - 0.9 High carbon dioxide, venous blood 27.0 mmol/L LinkLogic 23.0 - 31.0 calcium, serum 10.1 mg/dL LinkLogic 8.6 - 10.2 urea nitrogen, blood 12.0 mg/dL LinkLogic 8.0 - 23.0 blood glucose, random 91.0 mg/dL LinkLogic 74.0 - 99.0 HISTORY OF MEDICATION USE Medication Status Instructions Dates Provider Indications Com ments metoprolol succinate 25 mg tablet extended release 24 hr active TAKE 1 TABLET BY MOUTH EVERY NIGHT Florecita Martinez fluoxetine 40 mg capsule active TAKE 1 CAPSULE BY MOUTH EVERY DAY Tracy Fostersimonjesus simvastatin 20 mg tablet active Take 1 tablet by mouth once a day Dat Kerr MD metoprolol succinate 25 mg tablet extended release 24 hr completed Take 1 tablet by mouth every night - Florecita Martinez simvastatin 20 mg tablet completed TAKE 1 TABLET BY MOUTH NIGHTLY - Mere Claude metoprolol succinate 25 mg tablet extended release 24 hr completed 1 tablet every night - Dat Kerr MD albuterol sulfate 90 mcg/actuation HFA aerosol inhaler active Inhale 2 puff by mouth every six hours as needed Dat Kerr MD levothyroxine 50 mcg tablet active 1 tablet by mouth once a day Dat Kerr MD ACIDOPHILUS PEARLS CAPS active 1 capsule once a day Brittanie Arreolaue PROPRANOLOL HCL 10 MG ORAL TABLET completed one tab once daily - Dat Kerr MD XANAX 0.25 MG ORAL TABLET completed prn but not more than three times daily - Cassie Jiménez ADULT ASPIRIN EC LOW STRENGTH 81 MG ORAL TABLET DELAYED RELEASE active 1 by mouth once a day Dat Kerr MD ELIQUIS 5 MG ORAL TABLET completed 2 Tablets Twice Daily for ONE WEEK. THEN ONE tablet twice daily going forward - Dat Kerr MD ALIGN CAPSULE completed as needed - Jodee Snow PROPRANOLOL HCL 20 MG ORAL TABLET completed One tablet in the morning and one half tablet at night. - Dat Kerr MD fluoxetine 40 mg capsule completed Take 1 capsule by mouth once a day - Dat Kerr MD simvastatin 20 mg tablet completed Take 1 tablet by mouth once a day - Fritz Huber OXYBUTYNIN CHLORIDE 5 MG ORAL TABLET completed 1 daily - Cassie Jiménez ASPIRIN 81 MG ORAL TABLET completed ONE TAB. DAILY - Jodeevicente Snow Fish Oil 300-1,000 mg capsule,delayed release(DR/EC) active 1 tablet once a day Dat Kerr MD MULTIVITAMINS CAPS active 1 tablet once a day Dat Kerr MD Vitamin B-12 1,000 mcg tablet active 1 tablet once a day Dat Kerr MD Vitamins B Complex capsule active once a day Dat Kerr MD VITAMIN D TABLET completed 2000 units daily - Cassie Jiménez CALCIUM + D TABLET completed 1 daily - Jodee ThompsonSushilCandelario SOCIAL HISTORY Date Observation Value Provider social history E&M S moking History: Humberto de los santos is a former smoker. Dat Kerr MD social history reviewed E&M revi ewed - no changes required Dat Kerr MD exercise type walking Jodee Thompson'Candelario smoking, year quit 2002 Jodee O' Candelario number of years as a smoker 36 a Jodee O'Candelario cigarette use yes Jodee O'Candelario smoking status Former smoker Jodee Thompson'Aleta l social history E&M S moking History: Humberto de los santos is a former smoker. Dat Kerr MD social history reviewed E&M revi ewed - no changes required Dat Kerr MD exercise type walking Chastity Esau smoking, year quit 2002 Chastity Esau number of years as a smoker 36 a Chastity Esau cigarette use yes Chastity Esau smoking status Former smoker Brittanie Hog ue social history E&M S moking History: Humberto de los santos is a former smoker. Dat Kerr MD social history reviewed E&M revi ewed - no changes required Dat Kerr MD exercise type walking Verena Rivas smoking, year quit 2002 Verena F ox number of years as a smoker 36 a Verena Rivas cigarette use yes Verena Rivas smoking status Former smoker Verena Rivas social history E&M S moking History: Humberto de los santos is a former smoker. Dat Kerr MD social history reviewed E&M revi ewed - no changes required Dat Kerr MD exercise type walking Chastity Esau smoking, year quit 2002 Chastity Esau number of years as a smoker 36 a Chastity Esau cigarette use yes Chastity Esau smoking status Former smoker Chastity Hog ue social history E&M S moking History: Humberto de los santos is a former smoker. Dat Kerr MD social history reviewed E&M revi ewed - no changes required Dat Kerr MD smoking status Former smoker Paris Kita number of grandchildren Dat Kerr MD social history E&M S moking History: Humberto de los santos is a former smoker. Dat Kerr MD social history reviewed E&M revi ewed - no changes required Dat Kerr MD smoking status Former smoker Paris Kita social history reviewed E&M revi ewed - no changes required Dat Kerr MD alcohol use yes Danna Khan exercise type walking Danna Khan smoking, year quit 2002 Danna mott number of years as a smoker 36 a Danna Khan cigarette use yes Danna Khan smoking status Former smoker Danna Khan social history reviewed E&M revi ewed - no changes required Brandon Watkins MD number of grandchildren Brandon Marroquin social history reviewed E&M revi ewed - no changes required Dat Kerr MD social history reviewed E&M revi ewed - no changes required Dat Kerr MD exercise type walking 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 E&M revi ewed - no changes required Dat Kerr MD cigarette use yes Jodee Thompson'Candelario smoking status Former smoker Jodee O'Aleta l social history reviewed E&M revi ewed - no changes required Dat Kerr MD social history reviewed E&M revi ewed - no changes required Dat Kerr MD smoking status Former smoker Dat Izaguirre ra, MD social history reviewed E&M revi ewed - no changes required Dat Kerr MD smoking/tobacco cess ation, patient education and counseling yes Dat Kerr MD social history reviewed E&M revi ewed - no changes required Dat Kerr MD smoking status Former smoker Jodee O'Aleta l social history reviewed E&M revi ewed - no changes required Brandon Watkins MD smoking status Former smoker Jodee O'Aleta l smoking/tobacco cess ation, patient education and counseling yes Dat Kerr MD social history reviewed E&M revi ewed - no changes required Dat Kerr MD smoking, year quit 2002 Ana hurt number of years as a smoker 36 a Ana Hair cigarette use yes Ana Hair smoking status Former smoker Ana Schulte ey FAMILY HISTORY Family Member Condition Mother AL female <65 Mother Family History Coron vickie Heart Disease female < 65: INSURANCE PROVIDERS Payer name Policy type / Coverage type Rosalie red alliance party [place] Medicare [id number] BLUE [place]ELD OF [place] Blue Shield [id number] ADVANCE DIRECTIVES Name Date POWER OF [employer] Date Name Performer [id number],S, Dat Izaguirre ra, [place] [id number],S, Dat Izaguirre ra, [place] [id number], Dat Izaguirre ra, MD [id number],S, Dat Izaguirre ra, MD [id number],S, Dat Izaguirre ra, MD [id number],S, Dat Izaguirre ra, MD [id number],S, Dat Izaguirre ra, MD [id number],W, Dat Izaguirre ra, MD [id number],W, Dat Izaguirre ra, MD [id number],B, Dat Izaguirre ra, MD [id number],S, n o recurrence o ff OAC Dat Kerr MD [id number],S, n o palpitations Her updated medication list for this problem includes: Metoprolol Succinate 25 Mg Tablet Extended Release 24 Hr (Metoprolol succinate) ..... 1 tablet every night Dat Kerr MD [id number],S, H er updated medication list for this problem includes: Simvastatin 20 Mg Tablet (Simvastatin) ..... Take 1 tablet by mouth nightly Dat Kerr MD [id number],B, f /w Dr. Robert Bueno OE improved with inhaler Dat Kerr MD [id number],S, n o recurrence Dat Kerr MD [id number],W, p t says her PB is usually better controlled outside the office w ill check 24-hr abpm Dat Kerr MD Cardiology Dat Bueno Cardiology Dat Bueno Cardiology Dat Bueno Cardiology Dat Bueno Cardiology Dat Bueno Cardiology Dat Bueno Cardiology Dat Bueno Cardiology Dat Bueno Cardiology Dat Bueno Cardiology Dat Bueno Cardiology: n o recurrence o ff OAC Dat Kerr MD Cardiology: n o palpitations Her updated medication list for this problem includes: Metoprolol Succinate 25 Mg Tablet Extended Release 24 Hr (Metoprolol succinate) ..... 1 tablet every night Dat Kerr MD Cardiology: H er updated medication list for this problem includes: Simvastatin 20 Mg Tablet (Simvastatin) ..... Take 1 tablet by mouth nightly Dat Kerr MD Cardiology: f /w Dr. Robert Bueno OE improved with inhaler Dat Kerr MD Cardiology: n o recurrence Dat Kerr MD Cardiology: p t says her PB is usually better controlled outside the office w ill check 24-hr abpm Dat Kerr MD Cardiology Dat Bueno Cardiology: L DL 93 in april 2020 Her updated medication list for this problem includes: Simvastatin 20mg Tablets (Simvastatin) ..... Take 1 tablet by mouth daily Dat Kerr MD Cardiology Dat Bueno Cardiology: H er updated medication list for this problem includes: Adult Aspirin Ec Low Strength 81 Mg Oral Tablet Delayed Release (Aspirin) ..... One po daily Dat Kerr MD Cardiology: n ot currently using bipap r ecommended regular use Dat Kerr MD Cardiology: H er updated medication list for this problem includes: Adult Aspirin Ec Low Strength 81 Mg Oral Tablet Delayed Release (Aspirin) ..... One po daily Propranolol Hcl 20 Mg Oral Tablet (Propranolol hcl) ..... One tablet in the morning and one half tablet at night. Dat Kerr MD Cardiology Dat Bueno Telehealth, 6 month f/u. : H er updated medication list for this problem includes: Adult Aspirin Ec Low Strength 81 Mg Oral Tablet Delayed Release (Aspirin) ..... One po daily Propranolol Hcl 20 Mg Oral Tablet (Propranolol hcl) ..... One tablet in the morning and one half tablet at night. Dat Kerr MD Telehealth, 6 month f/u. Dat Kerr MD Telehealth, 6 month f/u. Dat Kerr MD Telehealth, 6 month f/u. : L DL 79 in 07/2018 Her updated medication list for this problem includes: Simvastatin 20 Mg Oral Tablet (Simvastatin) ..... One tab. daily Dat Kerr MD Telehealth, 6 month f/u. Dat Kerr MD Telehealth, 6 month f/u. : H er updated medication list for this problem includes: Adult Aspirin Ec Low Strength 81 Mg Oral Tablet Delayed Release (Aspirin) ..... One po daily Propranolol Hcl 20 Mg Oral Tablet (Propranolol hcl) ..... One tablet in the morning and one half tablet at night. Dat Kerr MD Cardiology Dat Bueno Cardiology Dat Bueno Cardiology: p t deferred on CPAP titration study after informed of results in 11/2017. f inally underwent titration study in 08/2018 t sourav not enjoying it, pt is compliant with the CPAP for roughly 6 hours a night T he patient is using CPAP on a regular basis. The patient has been benefiting from therapy and should continue use. Dta Kerr MD Cardiology Dat Bueno Cardiology: L DL 79 in 07/2018 Her updated medication list for this problem includes: Simvastatin 20 Mg Oral Tablet (Simvastatin) ..... One tab. daily Dat Kerr MD Cardiology: n o recurrences Dat Kerr MD Cardiology: n o PE on CT 12/2017 d miko SOB Dat Kerr MD Cardiology Dat Bueno Cardiology Dat Bueno Cardiology: p t deferred on CPAP titration study after informed of results in 11/2017. risks of leaving ANN untreated explained. she will muse over her options before making a decision on titration study Dat Kerr MD Cardiology: L DL 70 in 10/2017 Her updated medication list for this problem includes: Simvastatin 20 Mg Oral Tablet (Simvastatin) ..... One tab. daily Dat Kerr MD Cardiology: n o PE on CT 12/2017 Dat Kerr MD Cardiology Dat Bueno Cardiology Dat Bueno Cardiology: n o recurrences Dat Kerr MD Cardiology Dat Bueno Cardiology Dat Bueno Cardiology Dat Bueno Cardiology Dat Bueno Cardiology Dat Bueno Cardiology: H er updated medication list for this problem includes: Simvastatin 20 Mg Oral Tablet (Simvastatin) ..... One tab. daily Dat Kerr MD Cardiology: H er updated medication list for this problem includes: Adult Aspirin Ec Low Strength 81 Mg Oral Tablet Delayed Release (Aspirin) ..... One po daily Propranolol Hcl 20 Mg Oral Tablet (Propranolol hcl) ..... One tablet in the morning and one half tablet at night. Dat Kerr MD Cardiology: H er updated medication list for this problem includes: Adult Aspirin Ec Low Strength 81 Mg Oral Tbec (Aspirin) ..... One po daily Propranolol Hcl 20 Mg Oral Tabs (Propranolol hcl) ..... One tablet in the morning and one half tablet at night. Dat Kerr MD Cardiology Dat Bueno Cardiology: H er updated medication list for this problem includes: Simvastatin 20 Mg Tabs (Simvastatin) ..... One tab. daily Dat Krer MD Cardiology: H er updated medication list for this problem includes: Adult Aspirin Ec Low Strength 81 Mg Oral Tbec (Aspirin) ..... One po daily Propranolol Hcl 20 Mg Oral Tabs (Propranolol hcl) ..... One tablet in the morning and one half tablet at night. Dat Kerr MD Cardiology: H er updated medication list for this problem includes: Adult Aspirin Ec Low Strength 81 Mg Oral Tbec (Aspirin) ..... One po daily Propranolol Hcl 20 Mg Oral Tabs (Propranolol hcl) ..... One tablet in the morning and one half tablet at night. Dat Kerr MD Cardiology: H er updated medication list for this problem includes: Adult Aspirin Ec Low Strength 81 Mg Oral Tbec (Aspirin) ..... One po daily Dat Kerr MD Cardiology: H er updated medication list for this problem includes: Simvastatin 20 Mg Tabs (Simvastatin) ..... One tab. daily Dat Kerr MD Cardiology: H er updated medication list for this problem includes: Adult Aspirin Ec Low Strength 81 Mg Oral Tbec (Aspirin) ..... One po daily Propranolol Hcl 20 Mg Oral Tabs (Propranolol hcl) ..... One tablet in the morning and one half tablet at night. Dat Kerr MD Cardiology:Remains on statins Katelyn Wilkerson NP Cardiology:Has not h ad any further problems with sob, but does have some pain in the calf of her legs, right worse than left. Will check her legs for any further clots with dopplers bilaterally. But she has not had any further sob. and has tolerated being off her eliquis for the past 4 months. Darby Wilkerson NP Cardiology: H er updated medication list for this problem includes: Propranolol Hcl 20 Mg Oral Tabs (Propranolol hcl) ..... One tablet in the morning and one half tablet at night. Dat Kerr MD Cardiology Dat Bueno Cardiology Dat Bueno Cardiology: H er updated medication list for this problem includes: Simvastatin 20 Mg Tabs (Simvastatin) ..... One tab. daily Dat Kerr MD Cardiology Dat Bueno Cardiology Dat Bueno Cardiology: H er updated medication list for this problem includes: Propranolol Hcl 20 Mg Oral Tabs (Propranolol hcl) ..... One tablet in the morning and one half tablet at night. Dat Kerr MD Cardiology Dat Bueno Cardiology: H er updated medication list for this problem includes: Propranolol Hcl 20 Mg Oral Tabs (Propranolol hcl) ..... One tablet in the morning and one half tablet at night. Dat Kerr MD Cardiology Dat Bueno Cardiology Dat Bueno Cardiology: H er updated medication list for this problem includes: Simvastatin 20 Mg Tabs (Simvastatin) ..... One tab. daily s ee lab 2-2015 Dat Kerr MD Cardiology Dat Bueno Cardiology Dat Bueno Cardiology: H er updated medication list for this problem includes: Propranolol Hcl 20 Mg Oral Tabs (Propranolol hcl) ..... One tablet in the morning and one half tablet at night. Dat Kerr MD Cardiology Dat Bueno Cardiology Dat Bueno Cardiology aDt Bueno Cardiology: H er updated medication list for this problem includes: Simvastatin 20 Mg Tabs (Simvastatin) ..... One tab. daily Dat Kerr MD Cardiology:Started o n eliquis 10 mg po bid for one week with change to 5mg po bid tomorrow 06-06-15 C heck venous dopplers le to r/o dvt Dat Kerr MD Cardiology: H er updated medication list for this problem includes: Propranolol Hcl 20 Mg Oral Tabs (Propranolol hcl) ..... One tablet in the morning and one half tablet at night. Dat Kerr MD Cardiology,follow up Dat lora MD Cardiology,follow up : H er updated medication list for this problem includes: Propranolol Hcl 20 Mg Oral Tabs (Propranolol hcl) ..... One tablet in the morning and one half tablet at night. Dat Kerr MD Cardiology,follow up Dat lora MD Cardiology,follow up Dat lora MD Cardiology,follow up : H er updated medication list for this problem includes: Simvastatin 20 Mg Tabs (Simvastatin) ..... One tab. daily Dat Kerr MD Cardiology,follow up : O rders: C omplete Echo (CPT-71869) B TYPE NATRIURETIC PEPTIDE (BNP) (30539) D -DIMER, QUANTITATIVE (8659) F VC - 86235 (51048) F RC - 34315 (45345) D LCO - 04678 (86001) 9 9215 HIGH Complex (CPT-27222) Dat Kerr MD Cardiology,follow up : O rders: C omplete Echo (CPT-12535) B TYPE NATRIURETIC PEPTIDE (BNP) (26119) D -DIMER, QUANTITATIVE (8659) F VC - 30086 (03031) F RC - 41336 (05392) D LCO - 09870 (06047) 9 9215 HIGH Complex (CPT-53583) Dat Kerr MD follow up :no recurr ence T he following medications were removed from the medication list: Aspirin 81 Mg Tabs (Aspirin) ..... One tab. daily Her updated medication list for this problem includes: Propranolol Hcl 20 Mg Oral Tabs (Propranolol hcl) ..... One tablet in the morning and one half tablet at night. Aspirin 81 Mg Tabs (Aspirin) ..... One tab. daily Dat Kerr MD follow up :none T he following medications were removed from the medication list: Aspirin 81 Mg Tabs (Aspirin) ..... One tab. daily Her updated medication list for this problem includes: Propranolol Hcl 20 Mg Oral Tabs (Propranolol hcl) ..... One tablet in the morning and one half tablet at night. Aspirin 81 Mg Tabs (Aspirin) ..... One tab. daily Dat Kerr MD follow up :none T he following medications were removed from the medication list: Aspirin 81 Mg Tabs (Aspirin) ..... One tab. daily Her updated medication list for this problem includes: Propranolol Hcl 20 Mg Oral Tabs (Propranolol hcl) ..... One tablet in the morning and one half tablet at night. Aspirin 81 Mg Tabs (Aspirin) ..... One tab. daily Dat Kerr MD follow up :none T he following medications were removed from the medication list: Aspirin 81 Mg Tabs (Aspirin) ..... One tab. daily Her updated medication list for this problem includes: Propranolol Hcl 20 Mg Oral Tabs (Propranolol hcl) ..... One tablet in the morning and one half tablet at night. Aspirin 81 Mg Tabs (Aspirin) ..... One tab. daily Dat Kerr MD follow up :last [facility] ked earlier this year H er updated medication list for this problem includes: Simvastatin 20 Mg Tabs (Simvastatin) ..... One tab. daily Dat Kerr MD follow up : H er updated medication list for this problem includes: Propranolol Hcl 20 Mg Oral Tabs (Propranolol hcl) ..... 1 twice daily Aspirin 81 Mg Tabs (Aspirin) ..... One tab. daily Calcium + D Tabs (Calcium citrate-vitamin d tabs) ..... 1 daily Dat Kerr MD follow up : H er updated medication list for this problem includes: Propranolol Hcl 20 Mg Oral Tabs (Propranolol hcl) ..... 1 twice daily Aspirin 81 Mg Tabs (Aspirin) ..... One tab. daily Dat Kerr MD follow up : H er updated medication list for this problem includes: Propranolol Hcl 20 Mg Oral Tabs (Propranolol hcl) ..... 1 twice daily Aspirin 81 Mg Tabs (Aspirin) ..... One tab. daily Dat Kerr MD follow up : H er updated medication list for this problem includes: Propranolol Hcl 20 Mg Oral Tabs (Propranolol hcl) ..... 1 twice daily Aspirin 81 Mg Tabs (Aspirin) ..... One tab. daily Dat Kerr MD follow up : H er updated medication list for this problem includes: Propranolol Hcl 20 Mg Oral Tabs (Propranolol hcl) ..... 1 twice daily Aspirin 81 Mg Tabs (Aspirin) ..... One tab. daily Dat Kerr MD follow up : O rders: Martin KG (CPT-55525) Dat Kerr MD Date Name Stress Echo Ambulatory BP Complete Echo Complete Echo C-REACTIVE PROTEIN ( CRP), HIGHLY SENSITIVE, CSF SED RATE BY MODIFIED WESTERGREN CT Angio Chest (PE P rotocol) PROBNP, N TERMINAL LIPID PANEL CBC (H/H, RBC, INDIC ES, WBC, PLT) BASIC METABOLIC PANE L W/EGFR D-DIMER, QUANTITATIV E Complete Echo Sleep Study Home Holter Monitor 24 Hr STR - Adenosine Complete Echo Venous Doppler Bilat eral LE Venous Doppler Bilat eral LE DLCO - 47954 FRC - 02727 FVC - 30201 D-DIMER, QUANTITATIV E B TYPE NATRIURETIC P EPTIDE (BNP) Complete Echo HISTORY OF PROCEDURES Procedure Date Procedure Name Provider Procedure Notes S tatus EKG Dat Kerr MD complet ed EKG Dat Kerr MD complet ed EKG Dat Kerr MD complet ed EKG Brandon Watkins MD comp leted SNOMED-CT: 073897471187063 Current Medications Documented Brandon Watkins MD completed SNOMED-CT: 578229497630278 Current Medications Documented Dat Kerr MD completed EKG Brandon Watkins MD comp leted SNOMED-CT: 619393839701197 Current Medications Documented Brandon Watkins MD completed Stress EKG Alex Monique MD completed Regadenoson, 4 units Alex Monique MD completed Cardiolite, 2 units Alex Monique MD completed SPECT Images Alex Monique MD completed SNOMED-CT: 132702716064035 Current Medications Documented Dat Kerr MD completed SNOMED-CT: 350643021343232 Current Medications Documented Dat Kerr MD completed SNOMED-CT: 004066866946034 Current Medications Documented Dat Kerr MD completed EKG Dat Kerr MD complet ed SNOMED-CT: 338800298354294 Current Medications Documented Dat Kerr MD completed SNOMED-CT: 365081917241382 Current Medications Documented Dat Kerr MD completed BLOOD COUNT HEMOGLOBIN Dat Kerr MD completed FVC - 48375 Dat Kerr MD comple bradley FRC - 75925 Dat Kerr MD comple bradley DLCO - 64368 Dat Kerr MD compl eted SNOMED-CT: 341090737196715 Current Medications Documented Dat Kerr MD completed EKG Brandon Watkins MD comp leted EKG Dat Kerr MD complet ed
--- OUTSIDE RECORDS SUMMARY | 2024-06-09 15:05 | XMS_ITS | Encounter Summary ---
Author Organization [facility] Address [address] [place] [address] Care Team Providers Care Ball Worker Name Role Phone Allyn Carson RN Unavailable [phone] Jordana Mon MD Primary Care Provider [phone] Jerrod Mcdermott DO Primary Care Provider [phone] Martin Jones MD Unavailable [phone] Dat Kerr MD Unavailable [phone] Jerrod Hernandez MD Unavailable [phone] Encounter Details Date Type Department Care Team (Late st Contact Info) Description 08/07/2016 [facility] Outpatient Visit [facility] Orthopedics - Radiology [address] [place], [place] [id number] Yamilka Vaughn MD [address] [place] [address] Social History Tobacco Use Types Packs/Day Years Used Date Smoking Tobacco: Former Cigarettes 1 30 0 07/13/1970 - 07/13/2000 Smokeless Tobacco: Never Alcohol Use Standard Drinks/Week Comments Yes 5.8 (1 standard drink = 0.6 oz p ure alcohol) Sex and Gender Information Value Date Recorded Sex Assigned at Not on file Gender Identity Not on file Sexual Orientation Not on file documented as of this encounter Functional Status Functional Status Response Date of Assess ment Is person deaf or have serious hearing difficult y? No 07/21/2014 Is person blind or have serious difficulty seein g? No 07/21/2014 Does person have serious dif ficulty walking/climbing stairs? No 07/21/2014 Does person have difficulty dressing/bathing? No 07/21/2014 Does person have difficulty doing errands alone? No 07/21/2014 Cognitive Status Response Date of Assessm ent Does person have difficulty concentrating/remembering/making decisions? No 07/21/2014 documented as of this encounter Plan of Treatment Upcoming Encounters Date Type Department Care Team (Late st Contact Info) Description 12/14/2024 10:20 AM CDT Office Visit [facility] Heart & Vascular Care [id number] [facility] [address] [place] [address] [place] [address] [facility] [address] [place] [address] 02/01/2025 11:00 AM AUTOGRAPHER Office Visit [facility] - Pulmonology [address] [facility] [address] [place] [address] [place] [address] [facility] [address] [place] [address] documented as of this encounter Visit Diagnoses Not on filedocumented in this encounter Care Teams Ball Worker Relationship Specialty Start Date End Date Jordana Mon MD [address] [place] [address] PCP - General Family Medicine 05/30/15 07/11/18 Jerrod Mcdermott DO [address] [place] [address] PCP - General Family Medicine 07/12/18 [place] [address] [facility] [address] [place] [address] Review Engineer 07/14/14 07/15/22 [place] [address] [facility] [address] [place] [address] Pulmonary Disease 08/15/20 Dat Kerr MD [address] [place] [address] Cardiovascular Disease 08/15/20 Jerrod Hernandez MD [facility] [place] [address] Urology 08/15/20 documented as of this encounter
--- OUTSIDE RECORDS SUMMARY | 2024-06-09 15:05 | XMS_ITS | Clinical Summary ---
Author Organization [facility] Building Address [address] [place] [address] Care Team Providers Care Warehouse Packaging Supervisor Name Role Phone Baldemar Jerrod Melara DO Primary Care Provider + Allergies Active Allergy Reactions Criticality Noted Date Comments Morphine Hallucinations,Nausea & Vomiting Medium Penicillins Hives Medium 02/06/2009 Medications vitamin B complex tablet extended release daily 6 Active multivitamin,tx-ir gw-Wi-VY-min 27-0.4 mg tablet 1 tablet Act iris [...] (06/27/2022): Added automatically from request for surgery [id number] Asthma 01/30/2021 Elevated blood pressure read ing without diagnosis of hypertension 01/30/2021 Acquired hypothyroidism 05/29/2020 Family history of thyroid disease 05/24/2019 Eyelid cellulitis, right 02/12/2019 Assessment & Plan (02/12/2019 10:04 AM AUTOMATIC OUTSOLE CUTTER): Overall Condition: New Acute Problem Treatment: New Medication: Continue Prescribed Eye drop along with Warm compressors. Start bactrim. Follow up with PCP/ophthalamalogist in 2 days, if not better. Follow up PRN Discussed signs and symptoms of Eye emergencies. 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 03/25/2018 History of DVT in adulthood 03/25/2018 Overview (01/03/2019): 2016 History of supraventricular tachycardia 03/25/20 18 Overview [...] cerebral ischemia - (Added by TW Conv) Encounters Date Type Department Care Team Description 06/09/2024 Nurse Triage [facility] Primary Care [address] [place] [phone] Jerrod Mcdermott DO 06/09/2024 Telephone [facility] Primary Care [address] [place] [phone] Jerrod Mcdermott DO Recommendation Request 03/11/2024 Orders Only [facility] Building [address] [place] [id number] Prema Melendez, RN 03/11/2024 Telephone [facility] Primary Care [address] [place] [phone] Jerrod Mcdermott DO from Last 3 Months Immunizations Immunization Administration Dates Next Due Influenza, [...] Adjuvanted, PF, IM (Arexvy) 02/16/2023 Tdap 01/24/2015 Surgical History Surgery Date Site/Laterality Comments LA TONSILLECTOMY PRIMARY/SEC ONDARY <AGE 10 Tonsillectomy - (Added by TW Conv) LA ICAR CATHETER ABLATION ATRIOVENTR NODE FUNCTION Cardiac Catheter His Ablation - (Added by TW Conv) ABDOMINAL HYSTERECTOMY ASD REPAIR age 11 PILONIDAL CYSTECTOMY ABDOMINAL SURGERY abdominalplasty REDUCTION MAMMAPLASTY Medical History Medical History Date Comments Personal history of transien t ischemic attack (TIA), and cerebral infarction without residual deficits History of transient cerebra l ischemia - (Added by TW Conv) Personal history of other di seases of the digestive system History of constipation - (A dded by TW Conv) Personal history of other me ntal and behavioral disorders History of depression - (Add ed by TW Conv) Malignant neoplasm of skin Skin cancer - (Added by TW Conv) Awareness under anesthesia Hyperlipidemia SVT (supraventricular tachycardia) Asthma Hypothyroidism Polycystic liver disease Tachycardia Kidney tumor (benign), right Syncope Family History Medical History Relation Name Comments Cerebral aneurysm Father Polycystic kidney disease Father Hypothyroidism Maternal Grandfather Lung cancer Mother Heart disease Paternal Grandfather Heart disease Paternal Grandmother Polycystic kidney disease Sister Relation Name Status Comments Father (Age 64) Maternal Grandfather Mother (Age 66) Paternal Grandfather Paternal Grandmother Sister Social History Tobacco Use Types Packs/Day Years [...] on file Legal Sex Female 2:08 AM AUTOMATIC OUTSOLE CUTTER Gender Identity Female 08/07/2020 9:24 AM CDT Sexual Orientation Straight 08/07/2020 9: 24 AM CDT Obstetrics History Last Filed Vital Signs Vital Sign Reading Time Taken Comments Blood Pressure 124/80 02/10/2024 10:25 AM AUTOMATIC OUTSOLE CUTTER Pulse 58 02/10/2024 10:25 AM AUTOMATIC OUTSOLE CUTTER Temperature 36.3 C (97.3 F) 02/10/2024 10:25 AM AUTOMATIC OUTSOLE CUTTER Respiratory Rate 20 02/10/2024 10:25 AM AUTOMATIC OUTSOLE CUTTER Oxygen Saturation 97% 02/10/2024 10:25 AM AUTOMATIC OUTSOLE CUTTER Inhaled Oxygen Concentration - - Weight 63 kg (139 lb) 02/10/2024 10:25 AM AUTOMATIC OUTSOLE CUTTER Height 158.8 cm (5' 2.5 ) 02/10/2024 10:25 AM CS T Body Mass Index 25.02 02/10/2024 10:25 AM AUTOMATIC OUTSOLE CUTTER Plan of Treatment Health Maintenance Due Date Last Done Comments Hepatitis B Screening 1968 Zoster Vaccine (1 of 2) 1998 Covid-19 Vaccine (2023-2 5 season) 2023 06/19/2020, 05/10/2020 DTaP/Tdap/Td Vaccine (2 - Td or Tdap) 01/24/2025 01/24/2015 Depression Screening 02/09/2025 02/10/2024, 04/15/2022, 04/08/2021, Additional history exists Fall Risk Assessment 02/09/2025 02/10/2024, 07/10/2022, 04/15/2022, Additional history exists Well Visit 65+ 02/09/2025 02/10/2024, 03/30, 05/29/2020, Additional history exists Osteoporosis Screening-Bone Density Scan 03/10/2026 03/10/2024 Hepatitis C Screening Completed 05/24/2019 Colon Cancer Screening-CT Colonography Discontinued 07/10/2022 Colon Cancer Screening-Colonoscopy Discontinued 07/10/2022 Colon Cancer Screening-DNA Stool Discontinued 07/11/19 Colon Cancer Screening-FIT Discontinued 07/10/2022 Colon Cancer Screening-FOBT Discontinued 07/10/2022 Colon Cancer Screening-Sigmoidoscopy Discontinued 07/10/2022 Colorectal Cancer Screening Discontinued Pneumococcal vaccine 65+ Completed 023, 02/04/2023, 12/05/2016, Additional history exists Influenza Vaccine Completed 02/03/2024, , 02/26/2021, Additional history exists Breast Cancer Screening-Mammogram Discontinued 024 Procedures Procedure Name Priority Date/Time Associated Diagnosis Comments SCREENING MAMMOGRAM 2D BILATERAL Schedule Routine, Read Routine (OP Routine) 03/10/2024 8:38 AM AUTOMATIC OUTSOLE CUTTER DEXA AXIAL SKELETON BONE DENSITY 1 OR MORE SITES Schedule Routine, Read Routine (OP Routine) 03/10/2024 COLONOSCOPY 07/10/2022 9:54 AM CDT HEPATITIS C ANTIBODY Routine 05/24/2019 9:44 AM AUTOMATIC OUTSOLE CUTTER Need for hepatitis C screening test from Last 3 Months or Most Recently Relevant to Health Maintenance Results * Screening Mammogram 2D Bilateral (03/10/2024 8:38 AM AUTOMATIC OUTSOLE CUTTER) SCRIBED BI-RADS 1 Anatomical Region Laterality Modality [...] Jerrod Mcdermott, - 07/10/2022 9:54 AM CDT [facility] GI ENDOSCOPY Patient Name: Marilee Shirley Procedure Date: 07/10/2022 9:54 AM Date of : 1950 Admit Type: Outpatient Age: 72 Gender: Female Attending MD: Jerrod Mcdermott D.O. Room: [facility] ENDOSCOPY ROOM 05 Note Status: [...] The scope was passed under direct vision.The CF-[id number] colonoscope was introduced through theanus and advanced [...] medications. - Repeat colonoscopy in 10 years forsurveillance. Jerrod Mcdermott D.O. 07/10/2022 10:25:33 AM Number of Addenda: 0 Note Initiated On: 07/10/2022 9:54 AM Recognized by the [employer] for promoting quality in endoscopy Jerrod Mcdermott DO ENDOSCOPY PROCEDURES Fin al Result * Hepatitis C antibody (05/24/2019 9:44 AM AUTOMATIC OUTSOLE CUTTER) Hep C Ab NONREACT NONREACTIVE [facility] Comment: Siemens CentaurXP using OSMAR (chemiluminescent immunoassay) [...] method. Blood specimen (specimen) 05/24/2019 9:44 AM AUTOMATIC OUTSOLE CUTTER 05/24/2019 10:05 AM AUTOMATIC OUTSOLE CUTTER Narrative Resulting Agency Comment CLI us Jerrod Mcdermott DO LAB MICROBIOLOGY - GENER AL ORDERABLES Final Result [facility] [address] [place] [address], [facility] [phone] from Last 3 Months or Most Recently Relevant to Health Maintenance Insurance [facility] MED[facility]ARE SUPPLEMENT MEDICARE [facility] MED[facility] SUPPLEMENT Member Subscriber Plan / Payer (Ef fective 2013-Present) Name:Marilee Shirley Relation to Subscriber:Self Name:Marilee Shirley Payer ID:[id number] Type:COMMERCIAL Address: [address] [place] [id number] MEDICARE Care Teams Warehouse Packaging Supervisor Relationship Specialty Start Date End Date Jerrod Mcdermott DO [address] [address] PCP - General 05/13/18
--- OUTSIDE RECORDS SUMMARY | 2024-06-09 15:05 | XMS_ITS | Patient Health Summary ---
Author Organization [facility] Address [address] [place] [address] Care Team Providers [facility]plain Name Role Phone Jerrod Mcdermott DO Primary Care Provider [phone] Martin Jones MD Unavailable [phone] Antonio Kerr MD Unavailable [phone] Jerrod Hernandez MD Unavailable [phone] Note from [facility],non-owned Affiliates and Associated Physician Practices is amultiple site organization consisting of ambulatory clinics and hospital sitesin [place], [place], [place] and [place]. This disclosure is being madepursuant to the Care Everywhere program and may not contain all information available regarding this patient. Last updated 17.[facility] Allergies * Morphine(Other) -Low Criticality * Penicillin G(Other) -Low Criticality * Penicillins Medications * Be aware that medications may not be up to date on this document. Alwaysverify current medications with the patient. * B COMPLEX VITAMINS PO Take 1 tablet by mouth once daily * albuterol-ipratropium (DUO-NEB) 0.5-2.5 (3) MG/3ML nebulizer solution(Started 08/15/2020) Inhale 3 mL by mouth 4 times daily as needed for Shortness of Breath or Wheezing DX: COPD J44.9 1 refill by 08/15/2021 * vitamin D3 (CHOLECALCIFEROL) 25 MCG (1000 UNITS) tablet Take 1 (one) tablet by mouth once daily * levothyroxine (Synthroid) 50 MCG tablet(Started 11/06/2021) Take 1 (one) tablet by mouth once daily * multivitamin daily tablet Take 1 (one) tablet by mouth daily with food * ascorbic acid (Vitamin C) 500 MG tablet Take 1 (one) tablet by mouth once daily * albuterol HFA (Proventil; Ventolin; Proair) 108 (90 Base) MCG/ACT inhaler (Started 12/23/2022) Inhale 2 (two) puffs by mouth every 6 hours as needed for Shortness of Breath, Wheezing or Cough 5 refills by 12/23/2023 * escitalopram (Lexapro) 20 MG tablet Take 1 (one) tablet by mouth once daily * metoprolol tartrate IR (Lopressor) 50 MG tablet(Started 09/29/2023) Take 1 (one) tablet by mouth once daily 3 refills by 09/28/2024 * atorvastatin (Lipitor) 80 MG tablet(Started 10/28/2023) TAKE 1 TABLET BY MOUTH AT BEDTIME 3 refills by 10/27/2024 * apixaban (Eliquis) 5 MG tablet(Started 03/15/2024) Take 1 (one) tablet by mouth 2 times daily 3 refills by 03/15/2025 * fluticasone-vilanterol (Breo Ellipta) 200-25 MCG/ACT inhaler(Started 04/19/2024) Inhale 1 (one) puff by mouth once daily 11 refills by 04/19/2025 Active Problems Problem Noted Date Diagnosed Date Paroxysmal atrial fibrillation 01/11/2023 Chest pain 07/15/2022 Chest pain, unspecified type 07/15/2022 Acute meniscal tear of right knee 08/16/2016 SVT (supraventricular tachycardia) 07/14/2014 Immunizations * Covid Moderna primary monovalent 12+ yr 0.5mL(Given 06/19/2020, 05/10/2020) * FLU VACCINE TRI IIV3 SPLIT IM (FLUVIRIN)(Given 02/03/2013) * INFLUENZA VACCINE(Given 12/29/2019, 12/21/2017, 12/17/2016, 12/25/2015, 12/31/2014, 03/08/2014) * INFLUENZA VACCINE, ADJUVANTED, QUADR. (FLUAD QUADRIVALENT; 65Y+) (AIIV4)(Given 01/30/2022, 02/26/2021) * INFLUENZA VACCINE, ADJUVANTED, TRIV. (FLUAD TRIVALENT; 65Y+) (AIIV3)(Given 02/03/2024) * INFLUENZA VACCINE, HIGH-DOSE, QUADR. (FLUZONE HIGH-DOSE QUADRIVALENT; 65Y+), 0.7 ML (HD-IIV4)(Given 02/03/2020) * INFLUENZA VACCINE, HIGH-DOSE, TRIV. (FLUZONE HIGH-DOSE TRIVALENT; 65Y+) (HD-IIV3)(Given 12/21/2017, 12/17/2016, 12/25/2015, 12/31/2014, 03/08/2014) * PNEUMOCOCCAL PCV20 CONJ VAC IM(Given 02/04/2023) * PNEUMOCOCCAL PPSV23(Given 06/05/2015, 04/04/2014) * Pneumococcal Pcv13 Conj(Given 12/05/2016, 12/31/2014) * RSV AREXVY 60YR+ 0.5ML(Given 02/16/2023) * TDAP (7yrs+)(Given 01/24/2015) Social History Tobacco Use Types Packs/Day Years Used Date Smoking Tobacco: Former Cigarettes 0.5 35 0 07/13/1965 - 07/13/2000 Smokeless Tobacco: Never Tobacco Cessation:Counseling Given: Not [...] Recorded Patient Health Questionnaire-2 Score 0 02/03/2024 [facility] [place] of Occupat ional Health - Occupational Stress [...] place to sleep or slept in a assisted (including now)? No 07/15/2022 Sex and Gender Information Value Date Recorded Sex Assigned at Not on file Gender Identity Not on file Sexual Orientation Not on file Last Filed Vital Signs Vital Sign Reading Time Taken Comments Blood Pressure 123/66 03/15/2024 10:26 AM [facility] Pulse 63 03/15/2024 10:26 AM [employer] [employer] Temperature 36.3 C (97.4 F) 02/03/2024 10:52 AM [employer] [employer] Respiratory Rate 18 02/03/2024 10:52 AM [facility] [facility] Oxygen Saturation 98% 02/03/2024 10:52 AM [employer] [employer] [facility] Inhaled Oxygen Concentration - - Weight 61.4 kg (135 lb 6.4 oz) 03/15/2024 10:26 AM [employer] [employer] Height 160 cm (5' 2.99 ) 03/15/2024 10:26 AM [employer] Body Mass Index 23.99 03/15/2024 10:26 AM [facility] Medical Devices Implanted Type Area Exchange Mechanic Device Identifier Shelf Expiration Date Model / Serial / Lot Sys Cor Stent Sng Xd Mr 2.5mm 32mm Dlv Implanted:Qty: 1 on 07/15/2022 by Duyen Brown MD at [facility] [employer] [id number] 10/03/2022 [id number] 250 / NA / [id number] Procedures * COMPLETE PFT W/WO BRONCHODILATOR(Performed 02/03/2024) Performed for Chronic obstructive pulmonary disease, unspecified COPD type (HCC), Wheezing * EKG 12-LEAD(Performed 03/24/2023) Performed for PAF (paroxysmal atrial fibrillation) ([facility] * B-TYPE NATRIURETIC PEPTIDE(Performed 03/16/2023) Performed for Nonrheumatic mitral valve regurgitation * COMPLETE PFT W/WO BRONCHODILATOR(Performed 01/28/2023) Performed for Chronic obstructive pulmonary disease, unspecified COPD type ([facility]) * XR CHEST 2VW(Performed 01/28/2023) Performed for Persistent cough, Former tobacco use, Rheumatoid factor positive * PULMONARY/RESPIRATORY REPORT ORDER(Performed 12/29/2022) * EKG 12-LEAD(Performed 12/15/2022) Performed for Palpitations * CARDIAC REHAB OUTPATIENT(Performed 12/10/2022) Performed for Non-ST elevation myocardial infarction (NSTEMI) ([facility]) * CARDIAC REHAB OUTPATIENT(Performed 12/08/2022) Performed for Non-ST elevation myocardial infarction (NSTEMI) ([facility]) * CARDIAC REHAB OUTPATIENT(Performed 12/03/2022) Performed for Non-ST elevation myocardial infarction (NSTEMI) ([facility]) * CARDIAC REHAB OUTPATIENT(Performed 11/28/2022) Performed for Non-ST elevation myocardial infarction (NSTEMI) ([facility]) * CARDIAC REHAB OUTPATIENT(Performed 11/26/2022) Performed for Non-ST elevation myocardial infarction (NSTEMI) ([facility]) * CARDIAC REHAB OUTPATIENT(Performed 11/24/2022) Performed for Non-ST elevation myocardial infarction (NSTEMI) ([facility]) * CARDIAC REHAB OUTPATIENT(Performed 11/21/2022) Performed for Non-ST elevation myocardial infarction (NSTEMI) ([facility]) * CARDIAC REHAB OUTPATIENT(Performed 11/19/2022) Performed for Non-ST elevation myocardial infarction (NSTEMI) ([facility]) * CARDIAC REHAB OUTPATIENT(Performed 11/17/2022) Performed for Non-ST elevation myocardial infarction (NSTEMI) ([facility]) * CARDIAC REHAB OUTPATIENT(Performed 11/14/2022) Performed for Non-ST elevation myocardial infarction (NSTEMI) ([facility]) * CARDIAC REHAB OUTPATIENT(Performed 11/12/2022) Performed for Non-ST elevation myocardial infarction (NSTEMI) ([facility]) * CARDIAC REHAB OUTPATIENT(Performed 11/10/2022) Performed for Non-ST elevation myocardial infarction (NSTEMI) (HCC) * CARDIAC REHAB OUTPATIENT(Performed 11/07/2022) Performed for Non-ST elevation myocardial infarction (NSTEMI) ([facility]) * CARDIAC REHAB OUTPATIENT(Performed 11/05/2022) Performed for Non-ST elevation myocardial infarction (NSTEMI) ([facility]) * CARDIAC REHAB OUTPATIENT(Performed 10/29/2022) Performed for Non-ST elevation myocardial infarction (NSTEMI) ([facility]) * CARDIAC REHAB OUTPATIENT(Performed 10/27/2022) Performed for Non-ST elevation myocardial infarction (NSTEMI) ([facility]) * CARDIAC REHAB OUTPATIENT(Performed 10/24/2022) Performed for Non-ST elevation myocardial infarction (NSTEMI) ([facility]) * CARDIAC REHAB OUTPATIENT(Performed 10/22/2022) Performed for Non-ST elevation myocardial infarction (NSTEMI) ([facility]) * CARDIAC REHAB OUTPATIENT(Performed 10/20/2022) Performed for Non-ST elevation myocardial infarction (NSTEMI) ([facility]) * CARDIAC REHAB OUTPATIENT(Performed 10/15/2022) Performed for Non-ST elevation myocardial infarction (NSTEMI) ([facility]) * CARDIAC REHAB OUTPATIENT(Performed 10/13/2022) Performed for Non-ST elevation myocardial infarction (NSTEMI) ([facility]) * CARDIAC REHAB OUTPATIENT(Performed 10/03/2022) Performed for Non-ST elevation myocardial infarction (NSTEMI) ([facility]) * CARDIAC REHAB OUTPATIENT(Performed 10/01/2022) Performed for Non-ST elevation myocardial infarction (NSTEMI) ([facility]) * CARDIAC REHAB OUTPATIENT(Performed 09/26/2022) Performed for Non-ST elevation myocardial infarction (NSTEMI) ([facility]) * B-TYPE NATRIURETIC PEPTIDE(Performed 09/25/2022) Performed for Nonrheumatic mitral valve regurgitation * CARDIAC REHAB OUTPATIENT(Performed 09/24/2022) Performed for Non-ST elevation myocardial infarction (NSTEMI) ([facility]) * CARDIAC REHAB OUTPATIENT(Performed 09/22/2022) Performed for Non-ST elevation myocardial infarction (NSTEMI) ([facility]) * ECHO CECIL COMPLETE(Performed 09/18/2022) Performed for Preprocedural cardiovascular examination * CCL INTRA PROCEDURE CECIL(Performed 09/18/2022) * CARDIAC REHAB OUTPATIENT(Performed 09/17/2022) Performed for Non-ST elevation myocardial infarction (NSTEMI) ([facility]) * CARDIAC REHAB OUTPATIENT(Performed 09/15/2022) Performed for Non-ST elevation myocardial infarction (NSTEMI) ([facility]) * CARDIAC REHAB OUTPATIENT(Performed 09/12/2022) Performed for Non-ST elevation myocardial infarction (NSTEMI) ([facility]) * CBC W AUTO DIFFERENTIAL(Performed 09/10/2022) Performed for Shortness of breath, Dyspnea on exertion, Chronic obstructive pulmonary disease, unspecified COPD type ([facility]) * BASIC METABOLIC PANEL (CALCIUM TOTAL)(Performed 09/10/2022) Performed for Shortness of breath, Dyspnea on exertion, Chronic obstructive pulmonary disease, unspecified COPD type ([facility]) * CARDIAC REHAB OUTPATIENT(Performed 09/10/2022) Performed for Non-ST elevation myocardial infarction (NSTEMI) ([facility]) * CARDIAC REHAB OUTPATIENT(Performed 09/08/2022) Performed for Non-ST elevation myocardial infarction (NSTEMI) ([facility]) * CARDIAC REHAB OUTPATIENT(Performed 09/05/2022) Performed for Non-ST elevation myocardial infarction (NSTEMI) ([facility]) * CARDIAC REHAB OUTPATIENT(Performed 09/03/2022) Performed for Non-ST elevation myocardial infarction (NSTEMI) ([facility]) * REFERRAL FOR PHASE II CARDIAC REHAB(Performed 09/02/2022) Performed for NSTEMI (non-ST elevated myocardial infarction) ([facility]) * CARDIAC RHYTHM STRIP ORDER(Performed 07/23/2022) * CARDIAC EKG ORDER(Performed 07/17/2022) * BASIC METABOLIC PANEL (CALCIUM TOTAL)(Performed 07/17/2022) * CBC W AUTO DIFFERENTIAL(Performed 07/17/2022) * ECHO COMPLETE(Performed 07/16/2022) Performed for NSTEMI (non-ST elevated myocardial infarction) ([facility]) * RENAL FUNCTION PANEL(Performed 07/16/2022) * PT-INR(Performed 07/16/2022) * CBC W AUTO DIFFERENTIAL(Performed 07/16/2022) * TROPONIN I(Performed 07/16/2022) * PTT(Performed 07/16/2022) * PTT(Performed 07/15/2022) Performed for Chest pain, unspecified type * CBC W AUTO DIFFERENTIAL(Performed 07/15/2022) * CCL PERCUTANEOUS CORONARY INTERVENTION(Performed 07/15/2022) Performed for Chest pain, unspecified type * CCL LEFT HEART CATH(Performed 07/15/2022) Performed for Chest pain, unspecified type * ACT LR - POCT ([facility])(Performed 07/15/2022) * ACT LR - POCT ([facility])(Performed 07/15/2022) * PTT(Performed 07/15/2022) * PT-INR(Performed 07/15/2022) * XR CHEST 2VW(Performed 07/15/2022) Performed for Chest pain, unspecified type * EKG 12-LEAD(Performed 07/15/2022) Performed for Chest pain, unspecified type * LIPASE BLOOD(Performed 07/15/2022) * MAGNESIUM BLOOD(Performed 07/15/2022) * TROPONIN I(Performed 07/15/2022) * COMPREHENSIVE METABOLIC PANEL(Performed 07/15/2022) * CBC W AUTO DIFFERENTIAL(Performed 07/15/2022) * COMPLETE PFT W/WO BRONCHODILATOR(Performed 02/05/2022) Performed for Chronic obstructive pulmonary disease, unspecified COPD type ([facility]) * XR CHEST 2VW(Performed 02/05/2022) Performed for ILD (interstitial lung disease) ([facility]), Persistent cough, Former tobacco use * VITAMIN D 25-HYDROXY(Performed 02/12/2021) Performed for Vitamin D deficiency * CYCLIC CITRULLINATED PEPTIDE(CCP) AB IGG(Performed 09/21/2020) Performed for Rheumatoid factor positive * COMPLETE PFT W/WO BRONCHODILATOR(Performed 09/04/2020) Performed for Shortness of breath, Dyspnea on exertion * CT CHEST WO CONTRAST(Performed 09/04/2020) Performed for ILD (interstitial lung disease) ([facility]) * RHEUMATOID FACTOR BLOOD QUANTITATIVE(Performed 08/15/2020) Performed for Persistent cough, ILD (interstitial lung disease) ([facility]) * VITAMIN D 25-HYDROXY(Performed 08/15/2020) Performed for Vitamin D deficiency * QUANTIFERON TB-GOLD(Performed 08/15/2020) Performed for Persistent cough * ALLERGEN RESPIRATORY PNL REGION 8 ([place])(Performed 08/15/2020) Performed for Other eosinophilia, Persistent cough * FUNGAL ANTIBODY PANEL IMMUNODIFFUSION(Performed 08/15/2020) Performed for Persistent cough, ILD (interstitial lung disease) ([facility]) * ERYTHROCYTE SEDIMENTATION RATE(Performed 08/15/2020) Performed for Persistent cough, ILD (interstitial lung disease) ([facility]) * B-TYPE NATRIURETIC PEPTIDE(Performed 08/15/2020) Performed for Shortness of breath, Dyspnea on exertion, Palpitations * ANDREINA W REFLEX DS-DNA+RADHA+SSJ(Performed 08/15/2020) Performed for Persistent cough, ILD (interstitial lung disease) ([facility]) * ANGIOTENSIN CONVERTING ENZYME BLOOD(Performed 08/15/2020) Performed for Persistent cough, ILD (interstitial lung disease) ([facility]) * AXFMJ-9-GPERBJYDZLW BLOOD(Performed 08/15/2020) Performed for Former tobacco use, Persistent cough * STREP A SCREEN - POINT OF CARE (AMB) STL(Performed 11/26/2018) Performed for Acute pharyngitis, unspecified etiology * PULSE OXIMETRY - POINT OF CARE (AMB)(Performed 07/12/2018) Performed for Upper respiratory tract infection, unspecified type, Wheezing * STREP A SCREEN - POINT OF CARE (AMB) STL(Performed 07/12/2018) Performed for Upper respiratory tract infection, unspecified type * INFLUENZA A+B - POINT OF CARE (AMB)(Performed 07/12/2018) Performed for Upper respiratory tract infection, unspecified type * STREP A SCREEN - POINT OF CARE (AMB) STL(Performed 07/09/2017) Performed for Strep pharyngitis * CARDIAC RHYTHM STRIP ORDER(Performed 08/21/2016) * ARTHROSCOPY KNEE MENISCECTOMY MEDIAL(Performed 08/20/2016) Performed for Acute meniscal tear of knee, right, initial encounter * IMAGING/RADIOLOGY/XRAY RESULTS ORDER(Performed 06/05/2016) * CT ANGIO CHEST PULM EMBOLISM(Performed 05/30/2015) Performed for Other pulmonary embolism without acute cor pulmonale, unspecified chronicity ([facility]) * CREATININE BLOOD - POINT OF CARE (IP)(Performed 05/30/2015) * EP LAB CONSULT(Performed 07/25/2014) * CARDIAC EKG ORDER(Performed 07/24/2014) * LAB RESULTS ORDER(Performed 07/24/2014) * CARDIAC PROCEDURE ORDER(Performed 07/24/2014) * CARDIAC RHYTHM STRIP ORDER(Performed 07/24/2014) * EKG 12-LEAD(Performed 07/22/2014) Performed for SVT (supraventricular tachycardia) * COMPREHENSIVE METABOLIC PANEL(Performed 07/22/2014) Performed for SVT (supraventricular tachycardia), Hyperlipidemia * CARDIAC EKG ORDER(Performed 07/18/2014) * CARDIAC EKG ORDER(Performed 07/18/2014) * CARDIAC PROCEDURE ORDER(Performed 07/18/2014) * CARDIAC RHYTHM STRIP ORDER(Performed 07/18/2014) * CARDIAC CATH(Performed 07/14/2014) * ECHOCARDIOGRAM 2D WITH DOPPLER(Performed 07/14/2014) Performed for NSTEMI (non-ST elevated myocardial infarction) (HCC), SVT (supraventricular tachycardia) * LIPID PROFILE(Performed 07/14/2014) * TROPONIN I(Performed 07/13/2014) * TROPONIN I(Performed 07/13/2014) * CARDIAC CATH CONSULT(Performed 07/13/2014) * DERMATOPATHOLOGY(Performed 02/07/2014) * DERMATOPATHOLOGY(Performed 01/13/2013) * DERMATOPATHOLOGY(Performed 05/29/2011) * PATHOLOGY/GENETICS HISTORICAL-ONBASE(Performed 07/20/2008) * PATHOLOGY/GENETICS HISTORICAL-ONBASE(Performed 07/20/2008) Results * COMPLETE PFT W/WO BRONCHODILATOR (02/03/2024 12:00 PM [facility]) 02/03/2024 12:0 0 PM [facility] [facility] Narrative Procedure Note Martin Jones MD - 02/03/2024 10:49 PM CST [facility] PULMONARY FUNCTION TEST REPORT PATIENT: MARILEE SHIRLEY MR#: [id number] ADMIT DATE: 02/03/2024 CSN: [id number] DATE OF PROCEDURE: 02/03/2024 :1950 PHYSICIAN: Martin Jones MD REFERRING PHYSICIAN: Martin Jones MD FINDINGS: 1. Baseline spirometry reveals a mild decrease in FEV1. 2. Following administration of bronchodilator, there is a minimalincrease in expiratory flows. 3. FEV1/FVC ratio is decreased, consistent with obstruction. 4. Lung volumes are at the lower limit of normal. 5. Gas transfer capacity is diminished, but corrects for lung volume. 6. Flow volume loop demonstrates obstruction to the expiratory portion ofthe loop. IMPRESSION: Mild obstructive lung disease with a minimal bronchodilator response. There is no significant restrictive lung disease. Gastransfer capacity is diminished, but corrects for lung volume. Compared to theprior PFT from 01/28/2023, expiratory flows and lung volumes have decreased, andgas transfer capacity has not significantly changed. Overall, this isconsistent with minimal progression of the mild obstructive lung disease with stablegas transfer capacity since the prior PFT. Martin Brown MD KM/MODL #:[id number] Martin Jones MD RESPIRATORY THERAPY ORDERABLES Performing Organization Address City/[facility]/ZIP Co de Phone Number [facility] * EKG 12-LEAD (03/24/2023) Only the most recent of4 resultswithin the time period is included. Duyen Brown MD ECG ORDERABLES Performing Organization Address City/[facility]/ZIP Co de Phone Number SS RESULT SCAN * (ABNORMAL) B-TYPE NATRIURETIC PEPTIDE (03/16/2023 11:36 AM [employer]) Only the most recent of3 resultswithin the time period is included. BNP 325.5(H) 0.0 - 100.0 pg/mL [facility] INSURANCE BILL Comment:[employer] methodology Blood BLOOD SPECIMEN / Unknown 03/16/2023 11:36 AM [employer] 03/16/2023 Narrative Resulting Agency Comment [facility]: [facility] [address] [facility] [id number] Jacqueline Sheth PA-C LAB - CHEMISTRY ORDERABLES Performing Organization Address City/[facility] Co de Phone Number [facility] INSURANCE BILL [address] [place] [address] * COMPLETE PFT W/WO BRONCHODILATOR (01/28/2023 12:00 PM CDT) 01/28/2023 12:0 0 PM CDT Narrative Procedure Note Martin Jones MD - 01/28/2023 11:59 PM CDT [facility] PULMONARY FUNCTION TEST REPORT PATIENT: MARILEE SHIRLEY MR#: [id number] ADMIT DATE: 01/28/2023 CSN: [id number] DATE OF PROCEDURE: 01/28/2023 :1950 PHYSICIAN: Martin Jones MD REFERRING PHYSICIAN: Martin Jones MD FINDINGS: 1. Baseline spirometry reveals normal expiratory flows. 2. Following administration of bronchodilator, there is no significant change in expiratory flows. 3. FEV1/FVC ratio is decreased, consistent with obstruction. 4. Lung volumes are within normal limits. 5. Gas transfer capacity is mildly decreased, but corrects for the lung volume. 6. Flow volume loop has a normal configuration. IMPRESSION: Normal expiratory flows at baseline with no significant bronchodilator response. There is a decrease in FEV1/FVC ratioconsistent with mild obstruction. There is no restrictive lung disease. Gastransfer capacity is diminished, but corrects for the lung volume. Martin Brown MD KM/MODL #:[id number] Martin Jones MD RESPIRATORY THERAPY ORDERABLES Performing Organization Address City/State/[facility] Co de Phone Number [facility] * XR CHEST 2VW (01/28/2023 9:35 AM CDT) Only the most recent of3 resultswithin the time period is included. Anatomical Region Laterality Modality Chest Radiographic Kelly ging 01/28/2023 9:39 AM CDT Impressions 01/28/2023 9:39 AM CDT IMPRESSION: 1. Cardiomegaly, unchanged. 2. Large inspiratory volume, unchanged. > Interpreting Provider: Bo Coello MD on 01/28/2023 9:39 AM Narrative 01/28/2023 9:39 AM CDT PROCEDURE: XR CHEST 2VW, DATE/TIME OF EXAM: 01/28/2023 9:35 AM, LOCATION [facility] INDICATION: R05.3: Chronic cough Z87.891: Personal history of nicotine dependence R76.8: Other specified abnormal immunological findings in serum HISTORY: Cough. History of tobacco use. Positive rheumatoid factor. COMPARISON: Chest radiograph from 07/15/2022. PROCEDURE: XR CHEST 2VW FINDINGS: A 2 view chest examination was performed. The heart size is enlarged. This is unchanged. There is no lung consolidation. There is no edema. There is a large inspiratory volume is unchanged. Procedure Note Bo Coello MD - 01/28/2023 PROCEDURE: XR CHEST 2VW, DATE/TIME OF EXAM: 01/28/2023 9:35 AM, LOCATION [facility] INDICATION: R05.3: Chronic cough Z87.891: Personal history of nicotine dependence R76.8: Other specified abnormal immunological findings in serum HISTORY: Cough. History of tobacco use. Positive rheumatoid factor. COMPARISON: Chest radiograph from 07/15/2022. PROCEDURE: XR CHEST 2VW FINDINGS: A 2 view chest examination was performed. The heart size is enlarged.This is unchanged. There is no lung consolidation. There is no edema. There kayla large inspiratory volume is unchanged. IMPRESSION: 1. Cardiomegaly, unchanged. 2. Large inspiratory volume, unchanged. > Interpreting Provider: Bo Coello MD on 01/28/2023 9:39 AM Martin Jones MD DIAGNOSTIC IMAGING O RDERABLES * PULMONARY/RESPIRATORY REPORT ORDER (12/29/2022 7:46 PM CDT) Narrative 12/29/2022 7:46 PM CDT Ordered by an unspecified provider. Scanned Document RESPIRATORY THERAPY ORDERABLES * CARDIAC REHAB OUTPATIENT (12/10/2022 10:49 AM CDT) Only the most recent of33 resultswithin the time period is included. Emile Van MD CARDIAC REHAB ORDERA [facility] * ECHO CECIL COMPLETE (09/18/2022 10:32 AM CDT) BSA 1.59 m2 [facility] CV FUJI PACS Anatomical Region Laterality Modality Ultrasound Narrative 10/05/2022 9:26 PM CDT Mitral Valve: Severe regurgitation. There appeared to be 3 separate jets constituting severe mitral regurgitation Tricuspid Valve: Moderate to severe regurgitation. Left Ventricle: Left ventricle size is normal. Normal systolic function. Left Ventricle Left ventricle size is normal. Normal systolic function. Right Ventricle Right ventricle size is normal. Normal systolic function. Left Atrium Left atrium is dilated. The interatrial septum appears normal with no evidence of a shunt by color flow Doppler. Normal appendage flow velocity. No thrombus present in the left atrial appendage (ZAHIRA). Normal flow patterns in the pulmonary veins. Right Atrium Right atrium is dilated. Mitral Valve Valve structure is normal. Severe regurgitation. There appeared to be 3 separate jets constituting severe mitral regurgitation No stenosis. Tricuspid Valve Valve structure is normal. Moderate to severe regurgitation. No stenosis. Aortic Valve Valve structure is trileaflet. No regurgitation. No stenosis. Pulmonic Valve Not well visualized, but appears grossly normal. Trace regurgitation. No stenosis. Ascending Aorta Normal sized sinus of Valsalva (aortic root), ascending aorta and descending aorta. Pericardium No pericardial effusion. Study Details A complete echo was performed using complete 2D, color flow Doppler and spectral Doppler. During the study the esophageal, transgastric and descending thoracic views were captured. Saline (bubble) contrast was used during the study. The probe was inserted by the car deliverer. There was no probe insertion difficulty. General sedation was given. There were no complications during the procedure. Duyen Brown MD ECHO CUPID * CCL INTRA PROCEDURE CECIL (09/18/2022 10:06 AM CDT) Only the most recent of2 resultswithin the time period is included. Anatomical Region Laterality Modality X-Ray Angiograph y Narrative 09/18/2022 10:25 AM CDT This case was auto-finalized by a system utility. The result for this CECIL exam is stored on the other CECIL procedure. Please see the other line in chart review for the result. Duyen Brown MD CV CARDIAC CATH CUPI D PROCS * CBC WITH DIFFERENTIAL (09/10/2022 11:11 AM CDT) Only the most recent of5 resultswithin the time period is included. WBC 6.9 4.4 - 10.7 x10E9/L [facility] INSURANCE BILL RBC 3.98 3.80 - 5.20 x10E12/L [facility] INSURANCE BILL Hemoglobin 12.7 12.0 - 15.6 gm/dL [facility] INSURANCE BILL Hematocrit 38.7 35.9 - 45.5 % [facility] INSURANCE BILL MCV 97.2 80.7 - 98.3 fl [facility] INSURANCE BILL MCH 31.9 26.7 - 34.0 pg [facility] INSURANCE BILL MCHC 32.8 30.8 - 35.9 gm/dL [facility] INSURANCE BILL RDW 12.2 12.1 - 14.9 % [facility] INSURANCE BILL Platelet Count 195 153 - 416 x10E9/L [facility] INSURANCE BILL Comment:MPV FL BLOOD (SSM) 1 1.5 fl 9.4-12.9 Granulocytes % 62.2 44.0 - 73.0 % [facility] INSURANCE BILL Lymphocytes % 23.9 20.0 - 43.0 % [facility] INSURANCE BILL Monocytes % 9.2 5.0 - 13.0 % [facility] INSURANCE BILL Eosinophils % 3.6 0.0 - 6.0 % [facility] INSURANCE BILL Basophils % 0.7 0.0 - 2.0 % [facility] INSURANCE BILL Granulocytes Absolute 4.27 2.01 - 7.14 x10E9/L [facility] INSURANCE BILL Lymphocytes Absolute 1.64 1.07 - 3.94 x10E9/L [facility] INSURANCE BILL Monocytes Absolute 0.63 0.26 - 1.07 x10E9/L [facility] INSURANCE BILL Eosinophils Absolute 0.25 0 - 0.47 x10E9/L [facility] INSURANCE BILL Basophils Absolute 0.05 0 - 0.08 x10E9/L [facility] INSURANCE BILL Immature Granulocytes 0.4 0 - 1 % [facility] INSURANCE BILL Immature Granulocytes Absolute 0.03 0.00 - 0.06 x10E9/L [facility] INSURANCE BILL nRBC 0 /100 WBC [facility] INSURANCE BILL Blood BLOOD SPECIMEN / Unknown 09/10/2022 11:11 AM CDT 09/10/2022 Narrative Resulting Agency Comment Lab Testing performed at: [place] [address] [place] [phone] Duyen Brown MD LAB - HEMATOLOGY ORD ERABLES [facility] INSURANCE BILL [address] [place] [address] * (ABNORMAL) BASIC METABOLIC PANEL (BMP) (09/10/2022 11:11 AM CDT) Only the most recent of2 resultswithin the time period is included. [facility] Glucose 82 70 - 105 mg/dL [facility] INSURANCE BILL BUN 10 9.8 - 20.1 mg/dL [facility] INSURANCE BILL Creatinine 0.74 0.57 - 1.11 mg/dL [facility] INSURANCE BILL eGFR by CKD-EPI 85(L) >=90 mL/min/1.7 3 m2 [facility] INSURANCE BILL Sodium 139 136 - 145 mmol/L [facility] INSURANCE BILL Potassium 4.3 3.5 - 5.1 mmol/L [facility] INSURANCE BILL Chloride 108(H) 98 - 107 mmol/L [facility] INSURANCE BILL CO2 22(L) 23 - 31 mmol/L [facility] INSURANCE BILL Calcium 8.9 8.4 - 10.4 mg/dL [facility] INSURANCE BILL Blood BLOOD SPECIMEN / Unknown 09/10/2022 11:11 AM CDT 09/10/2022 Narrative Resulting Agency Comment Lab Testing performed at: [address] [place] [phone] Duyen Brown MD LAB - CHEMISTRY ORDE RABLES [facility] INSURANCE BILL [address] [place] [address] * Referral to Cardiac Rehab Phase II (09/02/2022 9:38 AM CDT) Duyen Brown MD CARDIAC REHAB ORDERA [facility] * CARDIAC RHYTHM STRIP ORDER (07/23/2022 1:43 AM CDT) Only the most recent of4 resultswithin the time period is included. Narrative 07/23/2022 1:43 AM CDT Ordered by an unspecified provider. Scanned Document CARDIAC SERVICES ORD ERABLES * CARDIAC EKG ORDER (07/17/2022 8:21 AM CDT) Only the most recent of4 resultswithin the time period is included. Narrative 07/17/2022 8:21 AM CDT Ordered by an unspecified provider. Scanned Document CARDIAC SERVICES ORD ERABLES * ECHO COMPLETE (07/16/2022 11:32 PM CDT) BSA [id number] m2 [facility] CV FUJI PACS LV biplane EF 57 % [facility] CV FUJI PACS LV A2C EF 60 % [facility] CV FUJ I PACS LV A4C EF 55 % [facility] CV FUJ I PACS LVOT stroke vol 53.11 cm3 SSM CV FUJI PACS LV stroke vol 2D teich 40.651 ml SSM CV FUJI PACS LV stroke vol index A4C MOD 36.121 ml SSM CV FUJI PACS LVIDd 4.04 3.5 - 6.0 cm SSM CV FUJI PACS IVSd MM 1.125 0.6 - 1.1 cm SSM CV FUJI PACS LVIDs 2.86 2.1 - 4.0 cm SSM CV FUJI PACS IVSd 2D 1.435 cm SSM CV FUJ I PACS IVSs M-Mode 1.04 cm SSM CV F UJI PACS LVPWd 1.55 0.48 - 0.91 cm SSM CV FUJI PACS LVPWs M-Mode 1.068 cm SSM CV FUJI PACS Fractional Shortening 2D 29 28 - 44 % SSM CV FUJI PACS LV ESV BP 25.885 mL SSM CV FUJ I PACS LV ESV index BP 15.7 mL/m2 SSM CV FUJI PACS LV ESV A2C 29.624 mL SSM CV FU JI PACS LV EDV BP 59.934 73.14 - 164.71 mL SSM CV FUJI PACS LV ESV A4C 21.72 mL SSM CV FU JI PACS LV EDV index BP 36.4 mL/m2 SSM CV FUJI PACS LV EDV A2C 54.319 mL SSM CV FU JI PACS LV EDV A4C 65.745 mL SSM CV FU JI PACS LVOT diam 2.3 cm SSM CV FUJ I PACS LVOT area 4.15 cm2 SSM CV FUJ I PACS LV RWT 0.765 SSM CV FUJ I PACS LV Orta A4C 6.339 cm SSM CV F UJI PACS LV mass m-mode 223.73 g SSM C V FUJI PACS LV mass index m-mode 135.75 g/m2 SSM CV FUJI PACS MV E pk calos 62.408 cm/s SSM CV F UJI PACS MV A pk calos 77.164 cm/s SSM CV F UJI PACS MV DT 198 ms SSM CV [facility] I PACS LVOT pk calos 0.3729527 [id number] m/s SSM CV FUJI PACS LVOT mn calos -0.190097 [id number] 1 m/s SSM CV FUJI PACS LVOT mn grad 1.5 mmHg SSM CV FUJI PACS LA size 4.575 cm SSM CV [facility] I PACS RVIDd 3.7 cm SSM CV [facility] I PACS RA area 18.631 cm2 SSM CV [facility] I PACS AV mn grad 2 mmHg SSM CV FU JI PACS AV pk grad 4 mmHg SSM CV FU JI PACS AV mn calos -0.72 m/s SSM CV [facility] I PACS AV pk calos 1.01 m/s SSM CV FUJ I PACS AV VTI 17.834 cm SSM CV [facility] I PACS LVOT pk grad 2.666 mmHg SSM CV FUJI PACS LVOT VTI 12.789 cm SSM CV FUJ I PACS AV area planimetry 2.98 cm2 SSM CV FUJI PACS AV area index 1.8 cm2/m2 SSM CV FUJI PACS AV area cont VTI 3.0 cm2 SSM CV FUJI PACS AV area pk calos 3.4 cm2 SSM C V FUJI PACS AV Doppler calos index pk calos 0.81 SSM CV FUJI PACS MV EROA PISA 0.04 cm2 SSM CV FUJI PACS MR PISA radius 0.352 cm SSM C V FUJI PACS MV Nyquist calos 0.35 m/s SSM C V FUJI PACS MV pk calos regurg 613.798 cm/s SSM CV FUJI PACS MV mn grad 1 mmHg SSM CV FU JI PACS MV pk grad 3 mmHg SSM CV FU JI PACS MV mn calos 0.42 m/s SSM CV FUJ I PACS MV pk calos 80.99 cm/s SSM CV FUJ I PACS MV PHT 57 ms SSM CV FUJ I PACS MV area PHT 3.86 cm2 SSM CV F UJI PACS MV area cont eq 3.10 cm2 SSM CV FUJI PACS MV VTI 17.112 cm SSM CV FUJ I PACS MV decel slope 314.997 cm/s2 SSM C V FUJI PACS TR pk calos 279.1 cm/s SSM CV FUJ I PACS sPAP 34.2 mmHg SSM CV FUJ I PACS RVSP 34.2 mmHg SSM CV FUJ I PACS RAP 3.0 mmHg SSM CV FUJ I PACS TR pk grad 31 mmHg SSM CV FU JI PACS DE pk calos 113.813 cm/s SSM CV FUJ I PACS DE pk grad 5 mmHg SSM CV FU JI PACS PV pk calos 55.786 cm/s SSM CV FUJ I PACS PV pk grad 1 mmHg SSM CV FU JI PACS Aortic arch 2.868 cm SSM CV F UJI PACS Sinus of Valsalva 3.32 cm SS M CV FUJI PACS IVC size 1.4 cm SSM CV FUJ I PACS LV mass index 140.0 g/m2 SSM CV FUJI PACS AV calos ratio 0.81 SSM CV FUJI PACS LA ESV A4C MOD Index 35 ml/m2 SSM CV FUJI PACS LA ESV A2C MOD Index 46 ml/m2 SSM CV FUJI PACS LA vol BP A-L 71.425 SSM CV FUJI PACS EF M-Mode 61 % SSM CV FUJ I PACS Dimensionless Index 0.717 SSM CV FUJI PACS LA Size 4.547 cm SSM CV FUJ I PACS LVIDs index 1.74 cm/m2 SSM CV F U PACS LV LVIDd index 2.45 cm/m2 SSM C V FUJI PACS LV orta vol endo z-score -2.58 SSM CV FUJI PACS LVPWd z-score 7.76 SSM CV FUJI PACS Anatomical Region Laterality Modality Ultrasound Narrative 07/17/2022 9:42 AM CDT Mitral Valve: Moderate to severe regurgitation. Left Ventricle: Left ventricle size is normal. Normal wall thickness. Normal systolic function with a visually estimated EF of 55 - 60%. Normal wall motion. Grade I diastolic dysfunction with normal left atrial pressure. Left Ventricle Left ventricle size is normal. Normal wall thickness. Normal systolic function with a visually estimated EF of 55 - 60%. Normal wall motion. Grade I diastolic dysfunction with normal left atrial pressure. Right Ventricle Right ventricle size is normal. Normal systolic function. Left Atrium Left atrium is dilated. Right Atrium Right atrium size is normal. IVC/SVC IVC diameter is less than or equal to 21 mm and decreases greater than 50% during inspiration; therefore the estimated right atrial pressure is normal (~3 mmHg). Mitral Valve Valve structure is normal. No restricted motion. Moderate to severe regurgitation. No stenosis. Tricuspid Valve Valve structure is normal. No restricted motion. Mild regurgitation with an eccentrically directed jet. No stenosis. Aortic Valve Valve structure is trileaflet. No restricted motion. No regurgitation. No stenosis. Pulmonic Valve Valve structure is normal. No restricted motion. No regurgitation. No stenosis. Main pulmonary artery size is normal. Ascending Aorta Normal sized sinus of Valsalva (aortic root) and ascending aorta. Pericardium No pericardial effusion. Study Details Study quality was adequate. A complete 2D, color Doppler, spectral Doppler and M-mode echocardiogram was performed. The apical, parasternal and subcostal views were obtained. Patient exhibited sinus rhythm. Procedure Note Duyen Brown MD - 07/17/2022 Mitral Valve: Moderate to severe regurgitation. Left Ventricle: Left ventricle size is normal. Normal wall thickness.Normal systolic function with a visually estimated EF of 55 - 60%. Normalwall motion. Grade I diastolic dysfunction with normal left atrialpressure. Duyen VARGAS CUPID * PT-INR (07/16/2022 3:42 AM CDT) Only the most recent of2 resultswithin the time period is included. PT 13.3 12.1 - 14.8 sec 07/16/2022 4:03 AM CDT [facility] INR 1.0 0.9 - 1.1 07/16/2022 4:03 AM CDT [facility] Blood BLOOD SPECIMEN / Unknown Venipuncture / Unknown 07/16/2022 3:42 AM CDT 07/16/2022 3:49 AM CDT Narrative [facility] - 07/16/2022 4:03 AM CDT Conventional Warfarin Anticoagulant Therapy: INR Reference Range: 2.0-3.0 Intensive Warfarin Anticoagulant Therapy: INR Reference Range: 2.5-3.5 Octavia Bailey CARE MANAGEMENT COORDINATOR-FLOOR GRINDER LAB - COAGULATIO N ORDERABLES Performing Organization Address City/State/[facility] Co de Phone Number [facility] [address] [place] [address] * (ABNORMAL) RENAL FUNCTION PANEL (07/16/2022 3:42 AM CDT) Glucose 112(H) 70 - 105 mg/dL 07/16/2022 4:11 AM CDT [facility] Sodium 136 136 - 145 mmol/L 07/16/2022 4:11 AM CDT [facility] Potassium 3.7 3.5 - 5.1 mmol/L 07/16/2022 4:11 AM CDT [facility] Chloride 106 98 - 107 mmol/L 07/16/2022 4:11 AM CDT [facility] CO2 22(L) 23 - 31 mmol/L 07/16/2022 4:11 AM CDT [facility] Calcium 8.8 8.4 - 10.4 mg/dL 07/16/2022 4:11 AM CDT [facility] Anion Gap 8 8 - 18 mmol/L 07/16/2022 4:11 AM CDT [facility] BUN 8(L) 9.8 - 20.1 mg/dL 07/16/2022 4:11 AM CDT [facility] Creatinine 0.68 0.57 - 1.11 mg/dL 07/16/2022 4:11 AM CDT [facility] Albumin 3.7 3.2 - 4.6 gm/dL 07/16/2022 4:11 AM CDT [facility] Phosphorus 3.2 2.3 - 4.7 mg/dL 07/16/2022 4:11 AM CDT [facility] eGFR by CKD-EPI >90 >=90 mL/min/1.7 3 m2 07/16/2022 4:11 AM CDT [facility] Blood BLOOD SPECIMEN / Unknown Venipuncture / Unknown 07/16/2022 3:42 AM CDT 07/16/2022 3:49 AM CDT Josef Dooley MD LAB - CHEMISTRY ARGELIA PAYNE Performing Organization Address [facility] de Phone Number [facility] [address] [place] [address] * (ABNORMAL) TROPONIN I (07/16/2022 12:34 AM CDT) Only the most recent of4 resultswithin the time period is included. Troponin I 44.986(HH) <0.038 ng/mL 07/16/2022 1:13 AM CDT [facility] Blood BLOOD SPECIMEN / Unknown Venipuncture / Unknown 07/16/2022 12:34 AM CDT 07/16/2022 12:39 AM CDT Ora Le APRN-GLYNN LAB - CHEMISTRY O RDERABLES Performing Organization Address [facility] de Phone Number [facility] [address] [place] [address] * PTT (07/16/2022 12:33 AM CDT) Only the most recent of3 resultswithin the time period is included. PTT 28.9 23.0 - 38.4 sec 07/16/2022 12:58 AM CDT [facility] Blood BLOOD SPECIMEN / Unknown Venipuncture / Unknown 07/16/2022 12:33 AM CDT 07/16/2022 12:39 AM CDT Narrative [facility] - 07/16/2022 12:58 AM CDT Heparin Therapeutic Range for PTT: 69.0 - 110.0 seconds. Duyen Brown MD LAB - COAGULATION OR DERABLES Performing Organization Address [facility] Co de Phone Number [facility] [address] [place], [place] [id number] * (ABNORMAL) ACT LR - POCT ([facility]) (07/15/2022 7:23 PM CDT) Only the most recent of2 resultswithin the time period is included. ACT LR 271(H) 125 - 187 sec 07/15/2022 7:38 PM CDT [facility] Blood BLOOD SPECIMEN / Unknown 07/15/2022 7:23 PM CDT 07/15/2022 7:38 PM CDT Provider Unknown LAB - COAGULATION OR DERABLES Performing Organization Address [facility] de Phone Number [facility] [address] [place] [address] * (ABNORMAL) COMPREHENSIVE METABOLIC PANEL (07/15/2022 3:27 PM CDT) Only the most recent of2 resultswithin the time period is included. Glucose 126(H) 70 - 105 mg/dL 07/15/2022 4:06 PM CDT [facility] Sodium 140 136 - 145 mmol/L 07/15/2022 4:06 PM CDT [facility] Potassium 4.0 3.5 - 5.1 mmol/L 07/15/2022 4:06 PM CDT [facility] Chloride 104 98 - 107 mmol/L 07/15/2022 4:06 PM CDT [facility] CO2 25 23 - 31 mmol/L 07/15/2022 4:06 PM CDT [facility] Calcium 10.0 8.4 - 10.4 mg/dL 07/15/2022 4:06 PM CDT [facility] Anion Gap 11 8 - 18 mmol/L 07/15/2022 4:06 PM CDT [facility] BUN 9(L) 9.8 - 20.1 mg/dL 07/15/2022 4:06 PM CDT [facility] Creatinine 0.79 0.57 - 1.11 mg/dL 07/15/2022 4:06 PM CDT [facility] Alkaline Phosphatase 68 40 - 150 U/L 07/15/2022 4:06 PM CDT [facility] ALT 23 0 - 61 U/L 07/15/2022 4:06 PM CDT [facility] AST 96(H) 5 - 34 U/L 07/15/2022 4:06 PM CDT [facility] Protein Total 7.0 6.4 - 8.3 gm/dL 07/15/2022 4:06 PM CDT [facility] Albumin 4.4 3.2 - 4.6 gm/dL 07/15/2022 4:06 PM CDT [facility] Bilirubin Total 0.7 0.2 - 1.2 mg/dL 07/15/2022 4:06 PM CDT [facility] eGFR by CKD-EPI 78(L) >=90 mL/min/1.7 3 m2 07/15/2022 4:06 PM CDT [facility] Blood BLOOD SPECIMEN / Unknown Venipuncture / Unknown 07/15/2022 3:27 PM CDT 07/15/2022 3:44 PM CDT Ora Le APRN-FLOOR GRINDER LAB - CHEMISTRY O DARSHANA Performing Organization Address [facility] de Phone Number [facility] [address] [place] [address] * MAGNESIUM BLOOD (07/15/2022 3:27 PM CDT) Magnesium 2.0 1.6 - 2.6 mg/dL 07/15/2022 4:06 PM CDT [facility] Blood BLOOD SPECIMEN / Unknown Venipuncture / Unknown 07/15/2022 3:27 PM CDT 07/15/2022 3:44 PM CDT Ora Le APRN-FLOOR GRINDER LAB - CHEMISTRY O RDERABLES [facility] [address] [place] [address] * LIPASE BLOOD (07/15/2022 3:27 PM CDT) Lipase 23 8 - 78 U/L 07/15/2022 4:06 PM CDT [facility] Blood BLOOD SPECIMEN / Unknown Venipuncture / Unknown 07/15/2022 3:27 PM CDT 07/15/2022 3:44 PM CDT Ora Le CARE MANAGEMENT COORDINATOR-FLOOR GRINDER LAB - CHEMISTRY O RDERABLES Performing Organization Address City/[facility] Co de Phone Number [facility] [address] [place] [address] * COMPLETE PFT W/WO BRONCHODILATOR (02/05/2022 12:00 PM PATROL DEPUTY SHERIFF) 02/05/2022 12:0 0 PM PATROL DEPUTY SHERIFF Narrative Procedure Note Martin Jones MD - 02/05/2022 9:41 AM CST [facility] PULMONARY FUNCTION TEST REPORT PATIENT: MARILEE SHIRLEY MR#: [id number] ADMIT DATE: 02/05/2022 CSN: [id number] DATE OF PROCEDURE: 02/05/2022 :1950 PHYSICIAN: Martin Jones MD REFERRING PHYSICIAN: Martin Jones MD 1. Baseline spirometry reveals normal expiratory flows. 2. Following administration of bronchodilator, there was no significant change in expiratory flows. 3. FEV1/FVC ratio is decreased, consistent with obstruction. 4. Lung volumes are within normal limits. 5. Gas transfer capacity is normal. 6. Flow volume loop has a normal configuration. IMPRESSION: Normal expiratory flows at baseline with no significant bronchodilator response. There is a decrease in FEV1/FVC ratio,consistent with mild obstruction. There is no restrictive lung disease. Gastransfer capacity is normal. Compared to the prior PFT from 09/04/2020,expiratory flows have increased, gas transfer capacity has not significantly changed,and lung volumes demonstrate decreased air trapping and hyperinflation.Overall, this is consistent with minimal improvement in the mild obstructive lung disease with stable gas transfer capacity since the prior PFT. Martin Brown MD KM/MODL #:[id number] Martin Jones MD RESPIRATORY THERAPY ORDERABLES Performing Organization Address City/[facility]/ZIP Co de Phone Number [facility] * VITAMIN D 25-HYDROXY (02/12/2021 8:57 AM PATROL DEPUTY SHERIFF) Only the most recent of2 resultswithin the time period is included. Pathologist [facility] [place] Vitamin D, 25 Hydroxy 32 30 - 100 ng/mL [facility] Comment: Vitamin D Status 25-OH Vitamin D: Deficiency: <20 ng/mL Insufficiency: 20 - 29 ng/mL Optimal: > or = 30 ng/mL For 25-OH Vitamin D testing on patients on D2-supplementation and patients for whom quantitation of D2 and D3 fractions is required, the QuestAssureD(TM) 25-OH VIT D, (D2,D3), LC/MS/MS is recommended: order code 82468 (patients >2yrs). See Note 1 Note 1 For additional information, please refer to http://education.[employer]/faq/JCT711 (This link is being provided for informational/ educational purposes only.) Test Performed at: [facility] [address] [place] [address] STACI MCCOLLUM DO,MPH Blood BLOOD SPECIMEN / Unknown 02/12/2021 8:57 AM PATROL DEPUTY SHERIFF 02/12/2021 8:58 AM PATROL DEPUTY SHERIFF Martin Jones MD LAB - CHEMISTRY ORDMartin PAYNE [facility] [address] [place] [address] * CYCLIC CITRULLINATED PEPTIDE(CCP) AB IGG (09/21/2020 7:49 AM CDT) Pathologist [facility] [place] Cyclic Citrullinated Peptide Antibody IgG <16 UNITS [facility] Comment: Reference Range Negative: <20 Weak Positive: 20-39 Moderate Positive: 40-59 Strong Positive: >59 Test Performed at: [facility] [address] [place] [address] STACI MCCOLLUM DO,MPH Blood BLOOD SPECIMEN / Unknown 09/21/2020 7:49 AM CDT 09/21/2020 7:49 AM CDT Martin Jones MD LAB - CHEMISTRY ARGELIA PAYNE [facility] Organization Address City/State/ZIP Co de Phone Number [facility] [address] [place] [address] * COMPLETE PFT W/WO BRONCHODILATOR (09/04/2020 12:00 PM CDT) 09/04/2020 12:0 0 PM CDT Narrative Procedure Note Martin Jones MD - 09/04/2020 9:28 AM CDT [facility] PULMONARY FUNCTION TEST REPORT PATIENT: MARILEE SHIRLEY MR#: [id number] ADMIT DATE: 09/04/2020 CSN: [id number] DATE OF PROCEDURE: 09/04/2020 :1950 PHYSICIAN: Martin Jones MD REFERRING PHYSICIAN: Martin Jones MD FINDINGS: 1. Baseline spirometry reveals normal expiratory flows. 2. Following administration of bronchodilator, there is no significant change in expiratory flows. 3. FEV1/FVC ratio is decreased, consistent with some obstruction. 4. Lung volumes demonstrate hyperinflation and air trapping. 5. Gas transfer capacity is just below the lower limit of normal but corrects for the lung volume. 6. Flow volume loop has a normal configuration. IMPRESSION: Normal expiratory flows with no significant bronchodilator response. There is a decrease in FEV1/FVC ratio associated with hyperinflation and air trapping, consistent with mild obstruction. Thereis no restrictive lung disease. Gas transfer capacity is minimallydecreased, but corrects for the lung volume. Martin Brown MD KM/MODL #:[id number] Martin Jones MD RESPIRATORY THERAPY ORDERABLES [facility] * CT CHEST WO CONTRAST (09/04/2020 10:13 AM CDT) Anatomical Region Laterality Modality Chest Computed Tomogra phy 09/04/2020 11:3 4 AM CDT Impressions 09/04/2020 12:54 PM CDT NUMEROUS SMALL BENIGN PULMONARY NODULES. NO FURTHER FOLLOW-UP RECOMMENDED. STABLE CARDIOMEGALY. STABLE MILD SUBPLEURAL SCARRING VERSUS ATELECTASIS, LATERAL RIGHT MIDDLE LOBE. NO ACUTE ABNORMALITIES. STABLE HEPATIC CYSTS. Edited by Ele Castillo on 09/04/2020 11:47 AM *Reading Radiologist: Samantha Albert on 09/04/2020 at 12:54 PM Narrative 09/04/2020 12:[address] THORAX WITHOUT CONTRAST CLINICAL INDICATION: Chronic worsening shortness of breath and dyspnea. COMPARISON: CT thorax 05/30/2015. TECHNIQUE: Axial CT imaging of the thorax from the lung apices to the upper abdomen was performed without contrast. Coronal and sagittal multiplanar reformatted images were created. FINDINGS: 2 mm subpleural nodule, anterior right upper lobe (series 4 image 64). 2 mm subpleural nodule medial right upper lobe (series 4 image 58). Stable mild subpleural scarring versus atelectasis along the lateral aspect of the right middle lobe. Multiple small subpleural nodules measuring up to 2.5 mm noted along the left upper lobe. No confluent pulmonary infiltrates. No pleural effusion. No pneumothorax. Stable cardiomegaly. No pericardial effusion. No pathologically enlarged lymph nodes. No osteoblastic or osteolytic lesions. No acute bony abnormality. Stable multiple hepatic cysts, the largest measuring 9.7 cm in the right lobe. Procedure Note Samantha Albert MD - 09/04/2020 CT THORAX WITHOUT CONTRAST CLINICAL INDICATION: Chronic worsening shortness of breath and dyspnea. COMPARISON: CT thorax 05/30/2015. TECHNIQUE: Axial CT imaging of the thorax from the lung apices to the upper abdomen was performed without contrast. Coronal and sagittal multiplanar reformatted images were created. FINDINGS: 2 mm subpleural nodule, anterior right upper lobe (series 4 image 64). 2 mm subpleural nodule medial right upper lobe (series 4 image 58). Stable mild subpleural scarring versus atelectasis along the lateral aspect of the right middle lobe. Multiple small subpleural nodules measuring up to 2.5 mm noted along the left upper lobe. No confluent pulmonary infiltrates. No pleural effusion. No pneumothorax. Stable cardiomegaly. No pericardial effusion. No pathologically enlarged lymph nodes. No osteoblastic or osteolytic lesions. No acute bony abnormality. Stable multiple hepatic cysts, the largest measuring 9.7 cm in the right lobe. IMPRESSION NUMEROUS SMALL BENIGN PULMONARY NODULES. NO FURTHER FOLLOW-UP RECOMMENDED. STABLE CARDIOMEGALY. STABLE MILD SUBPLEURAL SCARRING VERSUS ATELECTASIS, LATERAL RIGHT MIDDLE LOBE. NO ACUTE ABNORMALITIES. STABLE HEPATIC CYSTS. Edited by Ele Castillo on 09/04/2020 11:47 AM *Reading Radiologist: Samantha Albert on 09/04/2020 at 12:54 PM Martin Jones MD CT ORDERABLES * ANDREINA W REFLEX DS-DNA+RADHA+SSJ (08/15/2020 12:18 PM CDT) ANDREINA Direct Negative Negative [facility] INSURANCE BILL Blood BLOOD SPECIMEN / Unknown 08/15/2020 12:18 PM CDT 08/15/2020 Narrative Resulting Agency Comment Lab Testing performed at: [facility] [facility] [phone] Martin Jones MD LAB - SEROLOGY ORDER JENAE [facility] INSURANCE BILL [address] [place] [address] * (ABNORMAL) RHEUMATOID FACTOR BLOOD QUANTITATIVE (08/15/2020 12:18 PM CDT) Rheumatoid Factor 22.0(H) 0.0 - 13.9 IU/mL [facility] INSURANCE BILL Blood BLOOD SPECIMEN / Unknown 08/15/2020 12:18 PM CDT 08/15/2020 Narrative Resulting Agency Comment Lab Testing performed at: [address] [phone] Martin Jones MD LAB - CHEMISTRY ARGELIA [place] Performing Organization Address [facility]/ZIP Co de Phone Number [facility] INSURANCE BILL [address] [place] [address] * FUNGAL ANTIBODY PANEL IMMUNODIFFUSION (08/15/2020 12:18 PM CDT) Aspergillus fumigatus Negative Neg:<1:1 [facility] INSURANCE BILL Aspergillus flavus Negative Neg:<1:1 [facility] INSURANCE BILL Aspergillus niger Negative Neg:<1:1 [facility] INSURANCE BILL Blastomyces Antibody Quantitative DID Negative Neg:<1:1 [facility] INSURANCE BILL Blood BLOOD SPECIMEN / Unknown 08/15/2020 12:18 PM CDT 08/15/2020 Narrative Resulting Agency Comment Lab Testing performed at: [facility] [id number] Martin Jones MD LAB - CHEMISTRY ARGELIA [place] Performing Organization Address [facility] de Phone Number [facility] INSURANCE BILL [address] [place] [address] * (ABNORMAL) ALLERGEN RESPIRATORY PROF (IL,MO,IA) IGE (08/15/2020 12:18 PM CDT) Class Description Blood [facility] INSURANCE BILL Comment: Levels of Specific IgE Class Description of Class ----- < 0.10 0 Negative 0.10 - 0.31 0/I Equivocal/Low 0.32 - 0.55 I Low 0.56 - 1.40 II Moderate 1.41 - 3.90 III High 3.91 - 19.00 IV Very High 19.01 - 100.00 V Very High >100.00 Very High IgE 136 6 - 495 IU/mL [facility] INSURANCE BILL Allergen Dermatophagoides pteronyssinus IgE <0.10 Class 0 kU/L [facility] INSURANCE BILL Allergen Dermatophagoides farinae <0.10 Class 0 kU/L [facility] INSURANCE BILL Allergen Cat Dander <0.10 Class 0 kU/L [facility] INSURANCE BILL Allergen Dog Dander 11.40(A) Class IV kU/L [facility] INSURANCE BILL Allergen Bermuda Grass 0.15(A) Class 0/I kU/L [facility] INSURANCE BILL Allergen Ten Grass 1.46(A) Class III kU/L [facility] INSURANCE BILL Allergen Cockroach Greek <0.10 Class 0 kU/L [facility] INSURANCE BILL Allergen Penicillin chrysogen <0.10 Class 0 kU/L [facility] INSURANCE BILL Allergen C Herbarum <0.10 Class 0 kU/L [facility] INSURANCE BILL Allergen Aspergillus fumigatus <0.10 Class 0 kU/L [facility] INSURANCE BILL Allergen A Tenuis <0.10 Class 0 kU/L [facility] INSURANCE BILL Allergen Maple 0.11(A) Class 0/I kU/L [facility] INSURANCE BILL Allergen [place] 0.17(A) Class 0/I kU/L [facility] INSURANCE BILL Allergen [place] 0.20(A) Class 0/I kU/L [facility] INSURANCE BILL Allergen Elm 0.11(A) Class 0/I kU/L [facility] INSURANCE BILL Allergen Maple M[place]on[place] 0.10(A) Class 0/I kU/L [facility] INSURANCE BILL Allergen Edmun[place] <0.10 Class 0 kU/L [facility] INSURANCE BILL Allergen White Anthony 0.37(A) Class I kU/L [facility] INSURANCE BILL Allergen Anselmo 0.37(A) Class I kU/L [facility] INSURANCE BILL Allergen Pecan Mayes 0.12(A) Class 0/I kU/L [facility] INSURANCE BILL Allergen White [place] <0.10 Class 0 kU/L [facility] INSURANCE BILL Allergen Short/Common Ragweed 3.09(A) Class III kU/L [facility] INSURANCE BILL Allergen [place] Citizen Thistle <0.10 Class 0 kU/L [facility] INSURANCE BILL Allergen Rough Pigweed 0.10(A) Class 0/I kU/L [facility] INSURANCE BILL Allergen Rough Auguste Elder 0.45(A) Class I kU/L [facility] INSURANCE BILL Allergen Mouse Urine <0.10 Class 0 kU/L [facility] INSURANCE BILL Blood BLOOD SPECIMEN / Unknown 08/15/2020 12:18 PM CDT 08/15/2020 Narrative Resulting Agency Comment Lab Testing performed at: [facility] [phone] Martin Jones MD LAB - CHEMISTRY ARGELIA [place] [facility] INSURANCE BILL [address] [place] [address] * ANGIOTENSIN CONVERTING ENZYME BLOOD (08/15/2020 12:18 PM CDT) Angiotensin-Con verting Enzyme 43 14 - 82 U/L [facility] INSURANCE BILL Blood BLOOD SPECIMEN / Unknown 08/15/2020 12:18 PM CDT 08/15/2020 Narrative Resulting Agency Comment Lab Testing performed at: [place] [id number] [facility] [id number] Martin Jones MD LAB - CHEMISTRY AR[place]ELIA [place] Performing Organization Address City/[facility]/ZIP Co de Phone Number [facility] INSURANCE BILL [address] [place] [address] * [id number] BLOOD (08/15/2020 12:18 PM CDT) Pathologist [facility] Evtvp-9-Pawunup psin 135 101 - 187 mg/dL [facility] INSURANCE BILL Blood BLOOD SPECIMEN / Unknown 08/15/2020 12:18 PM CDT 08/15/2020 Narrative Resulting Agency Comment Lab Testing performed at: [address] [id number] Martin Jones MD LAB - CHEMISTRY ARGELIA PAY[place] [facility] INSURANCE BILL [address] [place] [address] * QUANTIFERON TB-GOLD (08/15/2020 12:18 PM CDT) Pathologist [facility] QuantiFERON Incubation Incubation performed. [facility] INSURANCE BILL QuantiFERON Criteria [facility] INSURANCE BILL Comment: The QuantiFERON-TB Gold Plus result is determined by subtracting the Nil value from either TB antigen (Ag) tube. The mitogen tube serves as a control for the test. QuantiFERON TB1 Ag Value 0.07 IU/mL [facility] INSURANCE BILL QuantiFERON TB2 Ag Value 0.05 IU/mL [facility] INSURANCE BILL QuantiFERON Nil Value 0.08 IU/mL [facility] INSURANCE BILL QuantiFERON Mitogen Value >10.00 IU/mL [facility] INSURANCE BILL QuantiFERON-TB Gold Plus Negative Negative [facility] INSURANCE BILL Comment:Chemiluminescence im munoassay methodology Blood BLOOD SPECIMEN / Unknown 08/15/2020 12:18 PM CDT 08/15/2020 Narrative Resulting Agency Comment Lab Testing performed at: [facility] [address] [facility] [phone] Martin Jones MD LAB - CHEMISTRY TANJAE RABDOROTHY Performing Organization Address City/[facility]/ZIP Co de Phone Number [facility] INSURANCE BILL [address] [place] [address] * ERYTHROCYTE SEDIMENTATION RATE (08/15/2020 12:18 PM CDT) Erythrocyte Sedimentation Rate Westergren 19 0 - 40 mm/hr [facility] INSURANCE BILL Blood BLOOD SPECIMEN / Unknown 08/15/2020 12:18 PM CDT 08/15/2020 Narrative Resulting Agency Comment Lab Testing performed at: [email or web address] [address] [facility] [id number] Martin Jones MD LAB - HEMATOLOGY ORD ERABLES Performing Organization Address City/[facility]/ZIP Co de Phone Number [facility] INSURANCE BILL [address] [place] [address] * STREP A SCREEN - POINT OF CARE (AMB) STL (11/26/2018) Only the most recent of3 resultswithin the time period is included. Strep A Rapid POCT Negative Negative Strep A Internal Control Present Lot # [id number] Expiration Date [id number] Throat ENTIRE THROAT (SURFACE REGION OF NECK) / Unknown 11/26/2018 Brandon Arguello CARE MANAGEMENT COORDINATOR-FLOOR GR[employer] LAB - POINT OF CARE ORDERABLES * PULSE OXIMETRY - POINT OF CARE (AMB) (07/12/2018 9:47 AM CDT) Oximetry POCT 96 0 - 100 % QC Verified Yes Yes Blood BLOOD SPECIMEN / Unknown 07/12/2018 9:47 AM CDT Darlene Reyes APRN-[employer] LAB - POINT OF CA RE ORDERABLES * INFLUENZA A+B - POINT OF CARE (AMB) (07/12/2018 9:44 AM CDT) Influenza A Antigen Rapid Negative Negative Influenza B Antigen Rapid Negative Negative Influenza Internal Control present NEGATIVE - POSITIVE Influenza Lot Number [id number] Influenza Expiration Date 02 09 2020 Other NASOPHARYNGEAL SWAB / Unknown 07/12/2018 9:44 AM CDT Darlene Reyes APRN-[facility] LAB - POINT OF CA RE ORDERABLES * IMAGING/RADIOLOGY/XRAY RESULTS ORDER (06/05/2016) Anatomical Region Laterality Modality Other Yuri Ga MD IMAGING * CT CHEST PE (05/30/2015 10:00 AM PATROL DEPUTY SHERIFF) Anatomical Region Laterality Modality Chest Computed Tomogra phy 05/30/2015 10:0 7 AM PATROL DEPUTY SHERIFF Impressions 05/30/2015 10:28 AM PATROL DEPUTY SHERIFF 1. SINGLE SMALL INTRA-ARTERIAL FILLING DEFECT IN A RIGHT LOWER LOBE PULMONARY ARTERY 2. 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 CARDIAC ENLARGEMENT, NOTED. 4. PATCHY INTERSTITIAL INFILTRATES, WITHOUT CONFLUENCY. 5. THE FINDINGS WERE DISCUSSED WITH DR. KERR, OVER THE TELEPHONE, AT 1027 HOURS ON 05/30/2015 Narrative 05/30/2015 10:28 [address] PULMONARY ANGIOGRAPHY - PULMONARY EMBOLISM PROTOCOL WITH MIP RECONSTRUCTIONS IN AXIAL, CORONAL AND SAGITTAL INDICATION: Palpitations TECHNIQUE: Axial images of the chest were made during infusion of 80 mL of Omnipaque 350, intravenously, as per our protocol for pulmonary embolism assessment. 3-D reconstruction MIP images were made at the workstation. FINDINGS: Respiratory motion limits some detail/resolution. There is a single intra arterial filling defect (axial image 60), in the right lower lobe. I do not see any other findings of pulmonary emboli. There are interstitial infiltrates in the right upper and right lower lung, with lesser involvement in the left upper lobe. There is no suspicious mediastinal adenopathy. There is no appreciable pneumothorax, pleural effusion or confluent infiltrate. There is moderate cardiac enlargement, primarily involving the right atrium, which measures up to 7.7 x 6.1 cm. There is left atrial enlargement, as well (8.2 x 4.9 cm). Portions of the abdomen included in the study show multiple hepatic cysts, measuring up to 6.9 x 6.6 cm, in the right hepatic lobe. There is irregular, primarily fat density, 3.6 x 2.9 x 2.8 cm mass involving the anterior medial cortex of the left kidney. This does appear to be distinct from the left adrenal gland. No other solid renal masses are seen., Procedure Note Maverick Melvin MD - 05/30/2015 CT PULMONARY ANGIOGRAPHY - PULMONARY EMBOLISM PROTOCOL WITH MIP RECONSTRUCTIONS IN AXIAL, CORONAL AND SAGITTAL INDICATION: Palpitations TECHNIQUE: Axial images of the chest were made during infusion of 80 mL of Omnipaque 350, intravenously, as per our protocol for pulmonary embolism assessment. 3-D reconstruction MIP images were made at the workstation. FINDINGS: Respiratory motion limits some detail/resolution. There is a single intra arterial filling defect (axial image 60), in the right lower lobe. I do not see any other findings of pulmonary emboli. There are interstitial infiltrates in the right upper and right lower lung, with lesser involvement in the left upper lobe. There is no suspicious mediastinal adenopathy. There is no appreciable pneumothorax, pleural effusion or confluent infiltrate. There is moderate cardiac enlargement, primarily involving the right atrium, which measures up to 7.7 x 6.1 cm. There is left atrial enlargement, as well (8.2 x 4.9 cm). Portions of the abdomen included in the study show multiple hepatic cysts, measuring up to 6.9 x 6.6 cm, in the right hepatic lobe. There is irregular, primarily fat density, 3.6 x 2.9 x 2.8 cm mass involving the anterior medial cortex of the left kidney. This does appear to be distinct from the left adrenal gland. No other solid renal masses are seen., IMPRESSION 1. SINGLE SMALL INTRA-ARTERIAL FILLING DEFECT IN A RIGHT LOWER LOBE PULMONARY ARTERY 2. 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 CARDIAC ENLARGEMENT, NOTED. 4. PATCHY INTERSTITIAL INFILTRATES, WITHOUT CONFLUENCY. 5. THE FINDINGS WERE DISCUSSED WITH DR. KERR, OVER THE TELEPHONE, AT 1027 HOURS ON 05/30/[address] ORDERABLES * CREATININE BLOOD - POINT OF CARE (IP) (05/30/2015 9:35 AM PATROL DEPUTY SHERIFF) Creatinine POCT 0.78 0.7 - 1.2 mg/dL [facility] POCT TESTING QC Verified Yes Yes [facility] POC T TESTING Blood specimen (specimen) BLOOD SPECIMEN / Unknown 05/30/2015 9:35 AM PATROL DEPUTY SHERIFF Antonio Kerr MD LAB - POINT OF CARE ORDERABLES Performing Organization Address City/State/[facility] Co de Phone Number [facility] POCT TESTING [id number] [phone] * EP LAB CONSULT (07/25/2014 6:17 PM CDT) Narrative [facility]ARD[facility] - 07/25/2014 6:17 PM CDT Brandon Watkins MD 07/25/2014 6:17 PM Electrophysiologic Study and Radiofrequency Ablation 07/21/2014 Referring Physician: Antonio Kerr MD, [facility], Mailhouse Operator: Brandon Watkins MD Procedures Performed: 1. Comprehensive electrophysiologic study with coronary sinus pacing/recording. 2. 3D electroanatomical mapping. 3. Radiofrequency ablation of scar-mediated right atrial tachycardia. History of Present Illness: Marilee Shirley is a 64-year-old with a history of ASD repair (Radha Nevarez), hyperlipidemia and chronic migraine headaches. This month she presented with 48 hour history of recurrent palpitations. Palpitations associated with dyspnea and pre-syncope. Upon arrival to [facility] demonstrated long RP narrow complex tachycardia with ventricular rate of 170 bpm. Tachycardia terminated with IV metoprolol. No prior episodes of palpitations, pre-syncope or falls. Mrs. Shirley was subsequently scheduled for cardiac electrophysiologic study and discharged on propranolol 20 mg bid. She presents today for cardiac electrophysiologic study. Medications: The patient received moderate sedation provided by anesthesiology. Fifty milliliters of 1% lidocaine was administered subcutaneously to provide local anesthesia. Description of Procedure: The risks and benefits of electrophysiologic study and radiofrequency ablation were discussed with the patient. The risks include and are not limited to , stroke, heart attack, permanent disability, cardiac surgery, perforation, pericardial effusion, heart block requiring pacemaker implantation and hemorrhage. Time was allotted for questions to be asked, all questions were answered, and the patient gave informed consent to proceed with the procedure. The patient presented to the electrophysiology laboratory in a fasting, non-sedated state. The patient was prepped and draped in the usual sterile fashion for electrophysiology study. One percent lidocaine was administered to the skin and subcutaneous tissues in the bilateral groins. Using a modified Seldinger technique, the right femoral vein was accessed and cannulated with a 8-Fr, 7-Fr and 6-Fr vascular sheaths. Subsequently, the left femoral vein was cannulated with one 7-Fr sheath without difficulty. Baseline Comprehensive Electrophysiologic Study: Through a 7-Fr sheath, using fluoroscopic guidance, a [employer] Venture deflectable decapolar catheter was advanced to the lateral coronary sinus. Through a 6-Fr sheath, a [employer]ics quadripolar catheter was advanced to the right ventricular apex. Through the left 7-Fr sheath, a deflectable quadripolar catheter was advanced to the His bundle region. Pacing maneuvers, including incremental pacing, burst pacing, and programmed extra-stimuli, were performed for the purpose of comprehensive electrophysiologic study and arrhythmia induction. Ms. Shirley presented in sinus rhythm with a baseline cycle length of 750 ms; DE 179 ms; QRS 80 ms; QT 440 ms; HV 39 ms; AH 80 ms. At baseline there was no evidence of pre-excitation or BBB. During Para-Hisian pacing, retrograde VA conduction was concentric and a ishan response was demonstrated. During decremental pacing from the right ventricular apex, retrograde VA conduction was concentric and decremental. VA Wenckebach conduction was present at 320 ms. During single atrial programmed extra-stimuli from the coronary sinus ostium, dual AV ishan pathway physiology was present. The AV ishan fast pathway ERP was 400/350 ms and the slow pathway ERP was 400/210 ms. During decremental pacing from the coronary sinus ostium, a [id number] AV ishan pathway jump was easily and reproducibly demonstrated (Candealrio Subha sign). AV ishan Wenckebach conduction occurred at 320 ms and 2:1 AV conduction occurred at 290 ms. While Ms. Shirley demonstrated evidence of dual AV ishan physiology, at no time did I observe any evidence of AV ishan reentrant tachycardia or of any echo beats. Of note, a long RP narrow complex tachycardia was easily and reproducibly induced with atrial programmed extra-stimuli at 400/340 ms. The tachycardia had a cycle length of 350 msec, 1:1 AV conduction, a proximal to distal activation on the CS catheter. During the tachycardia, ventricular overdrive pacing demonstrate a V-A-A-H-V response. His refractory PVC's did not effect the tachycardia. Atrial overdrive pacing demonstrated no VA linking. These findings indicate Ms. Paige clinical tachycardia represented an atrial tachycardia. Electroanatomical Mapping and Radiofrequency Ablation: After induction of Ms. Paige clinical tachycardia and diagnosis of atrial tachycardia, the His and RV catheters were withdrawn into the IVC. The 8-Fr sheath was exchanged over a wire for a SR0 sheath. Through the SR0 sheath a ThermoCool SmartTouch open irrigated catheter was advanced to the right atrium. I subsequently created a dense right atrial activation map. The activation map demonstrated earliest activation in the anterior low lateral right atrium. A voltage map (healthy > 0.5 mV and dense scar < 0.05 mV) demonstrated extensive scar in the lateral right atrium, I assume due to prior incision or cannulation sites. Immediately posterior to the dense scar were highly fractionated electrograms. While mapping in the anterior low lateral right atrium, I terminated the atrial tachycardia. I was able to easily reinduce the clinical tachycardia with atrial PES two more times and both times I terminated the tachycardia while mapping the anterior low lateral right atrium in the area of the fractionated electrograms. Subsequently, I performed high output pacing (20 Amps) throughout the entire area and demonstrated there was absolutely no phrenic nerve capture. Using a maximum output of 30 Marquez, I ablated the area of the highly fractionated electrograms. At no time during the entire procedure was there evidence of phrenic nerve injury. Post-ablation Comprehensive Electrophysiologic Study: At the conclusion of the procedure, Ms. Shirley was in sinus rhythm with a HV of 39 ms. Up to thirty minutes after the last radiofrequency lesion, I performed extensive burst pacing and single atrial programmed extra-stimuli in an attempt to reinduce the clinical atrial tachycardia. Despite extensive and aggressive single atrial programmed extra-stimuli and burst pacing (down to 200 msec) I was not able to reinduce the atrial tachycardia. Of note, during single atrial programmed extra-stimuli, dual AV ishan pathway physiology was present. The AV ishan fast pathway ERP was 400/350 ms and the slow pathway ERP was 400/210 ms. However, at no point during the procedure did I observe AV ishan reentrant tachycardia or even echo beats and, therefore, I decided not to perform AV ishan slow pathway ablation. All catheters and sheaths were removed in the electrophsiology laboratory and hemostasis was achieved following 20 minutes of manual pressure. The patient tolerated the procedure well and there were no complications during the procedure. Impression: 1. Successful radiofrequency ablation of scar-mediated right atrial tachycardia. 2. Normal His-Purkinje conduction. 3. Dual AV ishan pathway physiology. Plan: 1. Will initiate aspirin 81 mg qd for a minimum of six weeks. 2. Due to the presence of dual AV ishan pathyway physiology, I have asked Ms. Shirley to remain on propranolol 20 mg bid, which she takes for migraine prophylaxis. The attending physician was physically present throughout the entire duration of the procedure. Brandon Watkins MD ECHO ORDERABLES [facility] * LAB RESULTS ORDER (07/24/2014 10:39 PM CDT) Narrative 07/24/2014 10:39 PM CDT Ordered by an unspecified provider. Scanned Document LAB - THERAPEUTIC DR SAVAGE MONITORING ORDERABLES * CARDIAC PROCEDURE ORDER (07/24/2014 10:39 PM CDT) Only the most recent of2 resultswithin the time period is included. Narrative 07/24/2014 10:39 PM CDT Ordered by an unspecified provider. Scanned Document CARDIAC SERVICES ORD ERABLES * CARDIAC CATH - For Physician Documentation (07/14/2014 12:00 PM CDT) 07/14/2014 12:0 0 PM CDT Narrative Transcriptions Antonio Kerr MD - 07/15/2014 10:28 AM CDT [facility] CARDIAC PROCEDURE PATIENT: MARILEE SHIRLEY MR#: [id number] ADMIT DATE: 07/13/2014 CSN: [id number] PROCEDURE DATE: 07/14/2014 :1950 PHYSICIAN: Antonio Kerr MD, [facility], [facility], ROOM: [address] REFERRING PHYSICIAN: ANTONIO KERR PROCEDURE: 1. Left heart catheterization. 2. Selective coronary angiography. 3. Left ventriculography. BRIEF HISTORY: Patient is a 64[facility] a [facility] of SVT associated with chestpain, serial troponins elevated consistent with non ST elevated elevation [place],likely from demand ischemia, rule out obstructive coronary artery disease. DESCRIPTION OF PROCEDURE: After informed consent, patient was brought tot catheterization lab in a fasting state. The right groin was prepped and draped in the usual sterile fashion. Versed 2 mg and fentanyl 50 mcg IVwas given for sedation. One percent lidocaine was used for local anesthesia.A 5- Bulgarian sheath was placed in the right femoral artery using modifiedSeldinger technique. Selective coronary care performed using a 5-Bulgarian JL4 and5- Bulgarian JR4 diagnostic catheter. A 5-Bulgarian pigtail catheter was used forleft ventriculography using 35 cc of contrast, 12 cc/second, 0.5 rise, 600psi. All catheters were removed at the end of the procedure. The sheath was removed in the holding area with adequate hemostasis achieved. There wereno immediate complications. ANGIOGRAPHIC RESULTS: CORONARY ARTERIOGRAPHY: The left main coronaryartery was angiographically normal. The left anterior descending coronary arterywas free of any high-grade obstructive stenosis or significant luminal irregularities. The circumflex coronary artery was nondominant and angiographically normal. The right coronary artery was dominant and angiographically normal. LEFT VENTRICULOGRAPHY: Performed in the MCKEON view revealed normal LVsystolic function, LVEF 65%. There was no mitral valve regurgitation. There wasno aortic stenosis on left heart pullback. CONCLUSIONS: 1. Angiographically normal coronary arteries. 2. Normal left ventricular systolic function, LVEF 65%. 3. Udu-MY-bbfgiufni myocardial infarction secondary to demand ischemia secondary to SVT. No significant obstructive coronary arterydisease. RECOMMENDATIONS: 1. Bed rest 3 hours. 2. Probable discharge in a.m. tomorrow. 3. Outpatient EP study with possible ablation. ANTONIO KERR MD, FACC, FAHA,FSCAI, FACP GMK/MODL #: [id number] Antonio Kerr MD CARDIAC SERVICES OR DERABLES [facility] * ECHOCARDIOGRAM 2D WITH DOPPLER (07/14/2014 7:34 AM CDT) 07/14/2014 7:34 AM CDT Narrative [facility] CARDI[facility] - 07/14/2014 9:51 AM CDT [address] [address] Transthoracic Echocardiogram 2D, M-mode, Doppler, and Color Doppler Patient: MARILEE SHIRLEY MR number: [id number] Height: 63 in Weight: 124 lb BSA: 1.58 m Study date: 14-Jul-2014 : 1950 Age: 64 years Gender: Female Race: Allergies: PENICILLINS, MORPHINE Diagnoses: 410.70 - SUBENDO INFARCT, UNSPEC Reading Physician: George. Tadeo Kerr Referring Physician: George. Tadeo Kerr ROPE COILING MACHINE OPERATOR: Heidy Tobar, [facility] Cardiology Group: [facility] Summary: - History: - ASD Repair. - Procedure information: - Room 216 @ 0734. - Left ventricle: - Systolic function was normal. Ejection fraction was estimated in the range of 55 % to 65 %. - There were no regional wall motion abnormalities. - Wall thickness was normal. - Mitral valve: - There was mild regurgitation. - Atrial septum: - There was a patch in place. - Pulmonic valve: - There was trivial regurgitation. - Tricuspid valve: - There was moderate regurgitation. Indications: Evaluate suspected myocardial infarction. Evaluate chest pain. History: Symptoms: chest pain. Prior history: ASD Repair. Risk factors: medication-treated hypercholesterolemia. Procedure: The study was performed in the [facility]. This was a routine study. Room 216 @ 0734. The transthoracic approach was used. The study included complete 2D imaging, M-mode, complete spectral Doppler, and color Doppler. Systolic blood pressure was 99 mmHg. Diastolic blood pressure was 53 mmHg. Left ventricle: Size was normal. Systolic function was normal. Ejection fraction was estimated in the range of 55 % to 65 %. There were no regional wall motion abnormalities. Wall thickness was normal. Doppler: The transmitral flow pattern was normal. The deceleration time of the early transmitral flow velocity was normal. The pulmonary vein flow pattern was normal. Left ventricular diastolic function parameters were normal. Aortic valve: The valve was trileaflet. Leaflets exhibited normal thickness and normal cuspal separation. Doppler: Transaortic velocity was within the normal range. There was no stenosis. There was no regurgitation. Aorta: The root exhibited normal size. Mitral valve: Valve structure was normal. There was normal leaflet separation. Doppler: The transmitral velocity was within the normal range. There was no evidence for stenosis. There was mild regurgitation. Left atrium: Size was at the upper limits of normal. Atrial septum: There was a patch in place. Right ventricle: The size was normal. Systolic function was normal. Wall thickness was normal. Pulmonic valve: Leaflets exhibited normal thickness, no calcification, and normal cuspal separation. Doppler: There was trivial regurgitation. Pulmonary artery: Doppler: Systolic pressure was within the normal range. Tricuspid valve: The valve structure was normal. There was normal leaflet separation. Doppler: The transtricuspid velocity was within the normal range. There was no evidence for tricuspid stenosis. There was moderate regurgitation. Right atrium: Size was at the upper limits of normal. Pericardium: There was no pericardial effusion. The pericardium was normal in appearance. System measurement tables M mode AoR Diam (MM): 2.3 cm AV Cusp Sep (MM): 1.8 cm LA Dimension (MM): 3.8 cm LA Dimension; Mean (MM): 3.8 cm IVSd (MM): 0.6 cm IVSs (MM): 1 cm LVIDd (MM): 5.5 cm LVIDs (MM): 4.1 cm LVPWd (MM): 1.1 cm Tissue Doppler Imaging LV Peak Early Orta Tissue Calos; Mean; Lateral MA (TDI): 9.3 cm/s LV Peak Early Orta Tissue Calos; Medial MA (TDI): 6.5 cm/s Unspecified Scan Mode Peak Grad; Mean; Antegrade Flow: 4 mm[Hg] Vmax; Mean; Antegrade Flow: 99.9 cm/s LVOT Vmax: 74.5 cm/s MV E/A: 1.7 MV Peak A Calos: 47.4 cm/s MV Peak E Calos; Antegrade Flow: 80.9 cm/s Peak Gradient; User chosen value; Antegrade Flow;: 2 mm[Hg] Peak Velocity; User chosen value; Antegrade Flow;: 62.5 cm/s Peak Gradient; User chosen value; Regurgitant Flow;: 28 mm[Hg] Peak Velocity; User chosen value; Regurgitant Flow;: 265 cm/s Prepared and signed by George. Tadeo Kerr Signed 14-Jul-2014 09:51:38 Procedure Note Antonio Kerr MD - 07/14/[address] [address] Transthoracic Echocardiogram 2D, M-mode, Doppler, and Color Doppler Patient: MARILEE SHIRLEY MR number: [id number] Height: 63 in Weight: 124 lb BSA: 1.58 m Study date: 14-Jul-2014 : 1950 Age: 64 years Gender: Female Race: Allergies: PENICILLINS, MORPHINE Diagnoses: 410.70 - SUBENDO INFARCT, UNSPEC Reading Physician: George. Tadeo Kerr Referring Physician: George. Tadeo Kerr ROPE COILING MACHINE OPERATOR: Heidy Tobar, [facility] Cardiology Group: [facility] Summary: - History: - ASD Repair. - Procedure information: - Room 216 @ 0734. - Left ventricle: - Systolic function was normal. Ejection fraction was estimated in the range of 55 % to 65 %. - There were no regional wall motion abnormalities. - Wall thickness was normal. - Mitral valve: - There was mild regurgitation. - Atrial septum: - There was a patch in place. - Pulmonic valve: - There was trivial regurgitation. - Tricuspid valve: - There was moderate regurgitation. Indications: Evaluate suspected myocardial infarction. Evaluate chest pain. History: Symptoms: chest pain. Prior history: ASD Repair. Risk factors: medication-treated hypercholesterolemia. Procedure: The study was performed in the [facility]. This was a routine study. Room 216 @ 0734. The transthoracic approach was used. The study included complete 2D imaging, M-mode, complete spectral Doppler, and color Doppler. Systolic blood pressure was 99 mmHg. Diastolic blood pressure was 53 mmHg. Left ventricle: Size was normal. Systolic function was normal. Ejection fraction was estimated in the range of 55 % to 65 %. There were no regional wall motion abnormalities. Wall thickness was normal. Doppler: The transmitral flow pattern was normal. The deceleration time of the early transmitral flow velocity was normal. The pulmonary vein flow pattern was normal. Left ventricular diastolic function parameters were normal. Aortic valve: The valve was trileaflet. Leaflets exhibited normal thickness and normal cuspal separation. Doppler: Transaortic velocity was within the normal range. There was no stenosis. There was no regurgitation. Aorta: The root exhibited normal size. Mitral valve: Valve structure was normal. There was normal leaflet separation. Doppler: The transmitral velocity was within the normal range. There was no evidence for stenosis. There was mild regurgitation. Left atrium: Size was at the upper limits of normal. Atrial septum: There was a patch in place. Right ventricle: The size was normal. Systolic function was normal. Wall thickness was normal. Pulmonic valve: Leaflets exhibited normal thickness, no calcification, and normal cuspal separation. Doppler: There was trivial regurgitation. Pulmonary artery: Doppler: Systolic pressure was within the normal range. Tricuspid valve: The valve structure was normal. There was normal leaflet separation. Doppler: The transtricuspid velocity was within the normal range. There was no evidence for tricuspid stenosis. There was moderate regurgitation. Right atrium: Size was at the upper limits of normal. Pericardium: There was no pericardial effusion. The pericardium was normal in appearance. System measurement tables M mode AoR Diam (MM): 2.3 cm AV Cusp Sep (MM): 1.8 cm LA Dimension (MM): 3.8 cm LA Dimension; Mean (MM): 3.8 cm IVSd (MM): 0.6 cm IVSs (MM): 1 cm LVIDd (MM): 5.5 cm LVIDs (MM): 4.1 cm LVPWd (MM): 1.1 cm Tissue Doppler Imaging LV Peak Early Orta Tissue Calos; Mean; Lateral MA (TDI): 9.3 cm/s LV Peak Early Orta Tissue Calos; Medial MA (TDI): 6.5 cm/s Unspecified Scan Mode Peak Grad; Mean; Antegrade Flow: 4 mm[Hg] Vmax; Mean; Antegrade Flow: 99.9 cm/s LVOT Vmax: 74.5 cm/s MV E/A: 1.7 MV Peak A Calos: 47.4 cm/s MV Peak E Calos; Antegrade Flow: 80.9 cm/s Peak Gradient; User chosen value; Antegrade Flow;: 2 mm[Hg] Peak Velocity; User chosen value; Antegrade Flow;: 62.5 cm/s Peak Gradient; User chosen value; Regurgitant Flow;: 28 mm[Hg] Peak Velocity; User chosen value; Regurgitant Flow;: 265 cm/s Prepared and signed by George. Tadeo Kerr 14-Jul-2014 09:51:38 Antonio Kerr MD ECHO ORDERABLES Performing Organization Address City/[facility] Co de Phone Number [facility] * LIPID PROFILE (07/14/2014 4:23 AM CDT) Cholesterol 109 <200 mg/dL 07/14/2014 5:08 AM CDT [facility] Triglycerides 105 <150 mg/dL 07/14/2014 5:08 AM CDT [facility] HDL Cholesterol 64 >40 mg/dL 07/14/2014 5:08 AM CDT [facility] LDL Calculated 24 <130 mg/dL 07/14/2014 5:08 AM CDT [facility] VLDL Calculated 21 <=30 mg/dL 07/14/2014 5:08 AM CDT [facility] Chol HDL Ratio 1.7 <4.5 07/14/2014 5:08 AM CDT [facility] Blood BLOOD SPECIMEN / Unknown 07/14/2014 4:23 AM CDT 07/14/2014 4:38 AM CDT Antonio Kerr MD LAB - CHEMISTRY ORD ERABLES Performing Organization Address City/[facility]/ZIP Co de Phone Number [facility] [address] [place], [place] [id number] * PATHOLOGY TISSUE FOR DERMATOLOGY (02/07/2014 12:24 PM PATROL DEPUTY SHERIFF) Only the most recent of3 resultswithin the time period is included. Result CASE: [id number] PATIENT: MARILEE SHIRLEY PATHOLOGIC DIAGNOSIS: Left upper back: BENIGN VERRUCOUS KERATOSIS, INFLAMED CLINICAL DATA: ISK vs R/O SCC. GROSS DESCRIPTION: Received is one formalin filled container labeled with the patient's name and designated left upper back. The specimen consists of a shave biopsy measuring 9x7x3 mm. Jar 0. MICROSCOPIC DESCRIPTION: Sections show hyperkeratosis, papillomatosis, hypergranulosis , and acanthosis. These histological findings can be seen in a verruca vulgaris or a seborrheic keratosis. Inflammatory cells are present within the dermis. Electronically signed out by Chari Parson M.D., PhD. 02/09/2014 1:56:04PM [facility] Comment: Performed at: Dermatopathology Laboratory [facility] Department of Dermatology [address] [place] [address] Phone number: [phone] FAX: [phone] Skin (tissue) specimen (specimen) 02/07/2014 12:24 PM PATROL DEPUTY SHERIFF 02/08/2014 Narrative [facility] - 02/09/2014 1:56 PM PATROL DEPUTY SHERIFF Specimen A: Type->Shave Site->L upper back History->n/a Impression->ISK vs r/o SCC Check Margins:->N/A Prior Biopsy->N/A Nisha Solano MD LAB - PATHOLOGY/CYTO LOGY ORDERABLES Performing Organization Address [facility] Co de Phone Number [facility] [address] [place] [address]. [address] [place] [address] [phone] * PATHOLOGY/GENETICS HISTORICAL-ONBASE (07/20/2008) Only the most recent of2 resultswithin the time period is included. 07/20/2008 Historical Provider LAB - CHEMISTRY O RDERABLES Performing Organization Address City/[facility]/ZIP Co de Phone Number [facility] Care Teams Campus Chaplain Relationship Specialty Start Date End Date Jerrod Mcdermott DO [address] [address] PCP - General Family Medicine 07/12/18 [place] [address] [id number] Pulmonary Disease 08/15/20 Antonio Kerr MD [address] [place] [address] Cardiovascular Disease 08/15/20 Jerrod Hernandez MD [address] [place] [address] Urology 08/15/20
--- OUTSIDE RECORDS SUMMARY | 2024-06-09 15:05 | XMS_ITS | Referral Summary ---
Author Organization [facility] Address [address] [place] [address] Care Team Providers Care Joy Operator Helper Name Role Phone Jerrod Mcdermott DO Primary Care Provider [phone] Martin Jones MD Unavailable [phone] Dat Kerr MD Unavailable [phone] Jerrod Hernandez MD Unavailable [phone] Source Comments [facility],non-owned Affiliates and Associated Physician Practices is amultiple site organization consisting of ambulatory clinics and hospital sitesin [place], [place], [place] and [place]. This disclosure is being madepursuant to the Care Everywhere program and may not contain all information available regarding this patient. Last updated 17.[facility] Encounters Date Type Department Care Team Description 06/08/2024 Telephone [facility] Pulmonology [id number] [place] [address] [address] [place] [address] Martin Jones MD Medication Issue (PA fax for Breo that is not needed) 04/19/2024 Refill [facility] Pulmonology [address] [place] [address] Martin Jones MD MEDICATION REFILL 04/07/2024 Telephone [facility] [address] [place] [address] Martin Jones MD Medication Issue 03/15/2024 Travel 03/15/2024 10:20 AM [employer] PSYCHOLOGIST Office Visit [facility] 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 Alwaysverify current medications with the patient. Medication Sig Dispensed Refills Start Date End Date Status B COMPLEX VITAMINS PO Take 1 tablet by mouth once daily Active albuterol-ipratropiu m (DUO-NEB) 0.5-2.5 (3) MG/3ML nebulizer solutionIndications: Persistent cough,Wheezing Inhale 3 mL by mouth 4 times daily as needed for Shortness of Breath or Wheezing DX: COPD J44.9 1080 mL 1 08/15/2020 Active vitamin D3 (CHOLECALCIFEROL) 25 MCG (1000 UNITS) tablet Take 1 (one) tablet by mouth once daily Active levothyroxine (Synthroid) 50 MCG tablet Take 1 (one) tablet by mouth once daily 11/06/2021 Active multivitamin daily tablet Take 1 (one) tablet by mouth daily with food Active ascorbic acid (Vitamin C) 500 MG tablet Take 1 (one) tablet by mouth once daily Active albuterol HFA (Proventil; Ventolin; Proair) 108 (90 Base) MCG/ACT inhalerIndications:U pper respiratory tract infection, unspecified type,Wheezing Inhale 2 (two) puffs by mouth every 6 hours as needed for Shortness of Breath, Wheezing or Cough 18 g 5 12/23/2022 Active escitalopram (Lexapro) 20 MG tablet Take 1 (one) tablet by mouth once daily Active metoprolol tartrate IR (Lopressor) 50 MG tablet Take 1 (one) tablet by mouth once daily 90 tablet 3 09/29/2023 Active atorvastatin (Lipitor) 80 MG tablet TAKE 1 TABLET BY MOUTH AT BEDTIME 90 tablet 3 10/28/2023 Active apixaban (Eliquis) 5 MG tablet Take 1 (one) tablet by mouth 2 times daily 90 tablet 3 03/15/2024 Active fluticasone-vilanter ol (Breo Ellipta) 200-25 MCG/ACT inhalerIndications:C hronic obstructive pulmonary disease, unspecified COPD type (HCC) Inhale 1 (one) puff by mouth once daily 60 Each 11 04/19/2024 Active Active Problems Problem Noted Date Diagnosed Date Paroxysmal atrial fibrillation 01/11/2023 Chest pain 07/15/2022 Overview (07/15/2022): Added automatically from request for surgery [id number] Chest pain, unspecified type 07/15/2022 Acute meniscal tear of right knee 08/16/2016 SVT (supraventricular tachycardia) 07/14/2014 Overview (07/14/2014): Added by CDS based on documentation of NSTEMI by the Attending. Immunizations Name Administration Dates Next Due Covid Moderna primary monova lent 12+ yr 0.5mL 06/19/2020,05/10/2020 FLU VACCINE TRI IIV3 SPLIT I M (FLUVIRIN) 02/03/2013 INFLUENZA VACCINE 12/29/2019, 8,12/17/2016,2015,12/31/2014,03/08/2014 INFLUENZA VACCINE, ADJUVANTE D, QUADR. (FLUAD QUADRIVALENT; 65Y+) (AIIV4) 01/30/2022,02/26/2021 INFLUENZA VACCINE, ADJUVANTE D, TRIV. (FLUAD TRIVALENT; 65Y+) (AIIV3) 02/03/2024 INFLUENZA VACCINE, HIGH-DOSE , QUADR. (FLUZONE HIGH-DOSE QUADRIVALENT; 65Y+), 0.7 ML (HD-IIV4) 02/03/2020 INFLUENZA VACCINE, HIGH-DOSE , TRIV. (FLUZONE HIGH-DOSE TRIVALENT; 65Y+) (HD-IIV3) 12/21/2017,12/17/2016,12/25/2015,2014,03/08/2014 PNEUMOCOCCAL PCV20 CONJ VAC IM 02/04/2023 PNEUMOCOCCAL PPSV23 06/05/2015,04/04/2014 Pneumococcal Pcv13 Conj 12/05/2016,12/31/2014 RSV AREXVY 60YR+ 0.5ML 02/16/2023 TDAP (7yrs+) 01/24/2015 Social History Tobacco Use Types Packs/Day [...] Recorded Patient Health Questionnaire-2 Score 0 02/03/2024 [facility] Occup[facility] ional Health - Occupational Stress [...] place to sleep or slept in a half-way (including now)? No 07/15/2022 Sex and Gender Information Value Date Recorded Sex Assigned at Not on file Gender Identity Not on file Sexual Orientation Not on file Last Filed Vital Signs Vital Sign Reading Time Taken Comments Blood Pressure 123/66 03/15/2024 10:26 AM [employer] PSYCHOLOGIST Pulse 63 03/15/2024 10:26 AM [employer] PSYCHOLOGIST Temperature 36.3 C (97.4 F) 02/03/2024 10:52 AM [employer] PSYCHOLOGIST Respiratory Rate 18 02/03/2024 10:52 AM [employer] PSYCHOLOGIST Oxygen Saturation 98% 02/03/2024 10:52 AM EAR[employer] PSYCHOLOGIST Inhaled Oxygen Concentration - - Weight 61.4 kg (135 lb 6.4 oz) 03/15/2024 10:26 AM E[employer] PSYCHOLOGIST Height 160 cm (5' 2.99 ) 03/15/2024 10:26 AM E[employer] PSYCHOLOGIST Body Mass Index 23.99 03/15/2024 10:26 AM EAR[employer] PSYCHOLOGIST Functional Status Functional Status Response Date of [...] person have difficulty concentrating/remembering/making decisions? No 07/15/2022 Plan of Treatment Upcoming Encounters Date Type Department Care Team (Late st Contact Info) Description 12/14/2024 10:20 AM CDT Office Visit [facility] [address], [address] [place] [address] Duyen Brown MD [id number] [place] [address] [address] [place] [phone] 02/01/2025 11:00 AM [employer] PSYCHOLOGIST Office Visit [facility] - Pulmonology [address] [place] [address] [place] [address] [place] [address] Medical Devices Implanted Type Area English Horn Player Device Identifier Shelf Expiration Date Model / Serial / Lot Sys Cor Stent Sng Xd Mr 2.5mm 32mm Dlv Implanted:Qty: 1 on 07/15/2022 by Duyen Brown MD at [facility] [employer] [facility] [id number] 10/03/2022 [id number] 250 / NA / [id number] Advance Directives * Full Code (Latest Code Status on File) Date Activated Date Inactivated Comments 07/15/2022 7:37 PM 07/17/2022 2:31 PM * Full Code Date Activated Date Inactivated Comments 07/15/2022 6:12 PM 07/15/2022 7:37 PM * Full Code Date Activated Date Inactivated Comments 07/14/2014 12:38 PM 07/15/2014 11:06 AM * Full Code Date Activated Date Inactivated Comments 07/14/2014 12:17 PM 07/14/2014 12:38 PM * Full Code Date Activated Date Inactivated Comments 07/13/2014 5:11 PM 07/14/2014 12:17 PM Care Teams Joy Operator Helper Relationship Specialty Start Date End Date Jerrod Mcdermott DO [address] [place] [address] PCP - General Family Medicine 07/12/18 [place] [address] [address] Pulmonary Disease 08/15/20 Dat Kerr MD [address] [place] [address] Cardiovascular Disease 08/15/20 Jerrod Hernandez MD [address] [place] [address] Urology 08/15/20
--- OUTSIDE RECORDS SUMMARY | 2024-06-09 15:05 | XMS_ITS | Clinical Summary ---
Author Organization [facility] Address [address] [place] [address] Care Team Providers Care Ladle Liner Helper Name Role Phone Jerrod Mcdermott DO Primary Care Provider [phone] Martin Jones MD Unavailable [phone] Dat Kerr MD Unavailable [phone] Jerrod Hernandez MD Unavailable [phone] Source Comments [facility],non-owned Affiliates and Associated Physician Practices is amultiple site organization consisting of ambulatory clinics and hospital sitesin [place], [place], [place] and [place]. This disclosure is being madepursuant to the Care Everywhere program and may not contain all information available regarding this patient. Last updated 17.[facility] Allergies Active Allergy Reactions Criticality Noted Date [...] (07/15/2022): Added automatically from request for surgery [id number] Chest pain, unspecified type 07/15/2022 Acute meniscal tear of right knee 08/16/2016 SVT (supraventricular tachycardia) 07/14/2014 Overview (07/14/2014): Added by CDS based on documentation of NSTEMI by the Attending. Encounters Date Type Department Care Team Description 06/08/2024 Telephone [facility] - Pulmonology [address] [address] Martin Jones MD Medication Issue (PA fax for Breo that is not needed) 04/19/2024 Refill [facility] - Pulmonology [address] [facility] [address] [place] [address] Martin Jones MD MEDICATION REFILL 04/07/2024 Telephone [facility] - Pulmonology [address] [facility] [address] [place] [address] Martin Jones MD Medication Issue 03/15/2024 10:20 AM TRAWL NET MAKER Office Visit [facility] Heart & Vascular Care [address] [facility], [address] [place] [address] Duyen Brown MD CAD in [place] artery (Primary Dx); Paroxysmal atrial fibrillation (HCC) 03/15/2024 Travel from Last 3 Months Immunizations Name Administration Dates Next Due Covid [...] AREXVY 60YR+ 0.5ML 02/16/2023 TDAP (7yrs+) 01/24/2015 Family History Medical History Relation Name Comments Hypertension Father CAD (Coronary Artery Disease) Mother Cancer Mother Relation Name Status Comments Father Mother Social History Tobacco Use Types Packs/Day Years [...] Recorded Patient Health Questionnaire-2 Score 0 02/03/2024 [facility] - Occupational Stress [...] place to sleep or slept in a long-term (including now)? No 07/15/2022 Sex and Gender Information Value Date Recorded Sex Assigned at Not on file Gender Identity Not on file Sexual Orientation Not on file Last Filed Vital Signs Vital Sign Reading Time Taken Comments Blood Pressure 123/66 03/15/2024 10:26 AM TRAWL NET MAKER Pulse 63 03/15/2024 10:26 AM TRAWL NET MAKER Temperature 36.3 C (97.4 F) 02/03/2024 10:52 AM TRAWL NET MAKER Respiratory Rate 18 02/03/2024 10:52 AM TRAWL NET MAKER Oxygen Saturation 98% 02/03/2024 10:52 AM TRAWL NET MAKER Inhaled Oxygen Concentration - - Weight 61.4 kg (135 lb 6.4 oz) 03/15/2024 10:26 AM TRAWL NET MAKER Height 160 cm (5' 2.99 ) 03/15/2024 10:26 AM TRAWL NET MAKER Body Mass Index 23.99 03/15/2024 10:26 AM TRAWL NET MAKER Plan of Treatment Upcoming Encounters Date Type Department Care Team (Late st Contact Info) Description 12/14/2024 10:20 AM CDT Office Visit [facility] Heart [facility] Vascular Care [address] [facility] [address] [place] [address] [place] [address] [facility] [address] [place] [id number] 02/01/2025 11:00 AM TRAWL NET MAKER Office Visit [facility] - Pulmonology [address] [facility] [address] [place] [address] [place] [address] [facility] [address] [place] [address] Health Maintenance Due Date Last Done Comments BONE DENSITY TESTING 1950 MEDICARE AWV 12 MONTHS 1950 HEPATITIS C SCREENING 05/04/1966 ZOSTER VACCINE (1 of 2) 1998 COVID-19 VACCINE ( season) 2023 06/19/2020, 05/10/2020 DEPRESSION SCREENING 03/30/2024 02/03/2024 DTAP/TDAP/TD VACCINES (2 - Td or Tdap) 01/24/2025 01/24/2015 PNEUMOCOCCAL VACCINE 50+ Completed 023, 12/05/2016, 06/05/2015, Additional history exists Respiratory Syncytial Virus (RSV) Vaccine Pt: or over 60 yrs Completed 02/16/2023 INFLUENZA VACCINE Completed 02/03/2024, , 02/26/2021, Additional history exists HEPATITIS B VACCINE Aged Out No longe r eligible based on patient's age to complete this topic HIB VACCINE Aged Out No longer eligi ble based on patient's age to complete this topic HPV VACCINE Aged Out No longer eligi ble based on patient's age to complete this topic MENINGOCOCCAL (Group B) VACCINE SHARED DECISION-MAKING Aged Out No longer eligible based on patient's age to complete this topic MENINGOCOCCAL GROUPS A/C/Y/W VACCINE Aged Out No longer eligible based on patient's age to complete this topic Medical Devices Implanted Type Area Rough Rounder Machine Device Identifier Shelf Expiration Date Model / Serial / Lot Sys Cor Stent Sng Xd Mr 2.5mm 32mm Dlv Implanted:Qty: 1 on 07/15/2022 by Duyen Brown MD at [facility] [employer] [facility] [id number] 10/03/2022 [id number] 250 / NA / [id number] Advance Directives * Full Code (Latest Code [...] 5:11 PM 07/14/2014 12:17 PM Care Teams Ladle Liner Helper Relationship Specialty Start Date End Date Jerrod Mcdermott DO [address] [address] PCP - General Family Medicine 07/12/18 [place] [address] [address] Pulmonary Disease 08/15/20 Dat Kerr MD [address] [place] [address] Cardiovascular Disease 08/15/20 Jerrod Hernandez MD [facility] [place] [address] Urology 08/15/20
--- OUTSIDE RECORDS SUMMARY | 2024-06-09 15:08 | XMS_ITS | Continuity of Care Document ---
Author Organization [facility] Address [address] [place] [address] [address] [place] [address] Phone Care Team Providers Care Road Crew Member Name Role Phone Laury Martinez Unavailable Unavailable Procedures Procedure Date Eye Exam Established Pt Advance Directives Directive Yes / No Effective Date File Name No Information Encounters Encounter Description Practice Location Reason(s) For Visit Diagnoses Date Provider Providers Copied on Encounter [facility], [address], [place], [place], [id number], [place] tel:[phone] [facility] No Information [address]. [address] [facility] [address] [place] , [address], [place], [address], [place]. tel:[phone] Referring Provider: Ora Lujan OD, [address] [facility], [place], [address]. tel:[phone] Family History Family Member Type Diagnosis Age At Onset No Information Payers Payer name Insurance type Covered green party ID Authoriza tion(s) No Information Social [...]
--- OUTSIDE RECORDS SUMMARY | 2024-06-09 15:08 | XMS_ITS | CONTINUITY OF CARE DOCUMENT ---
Author Name warren kelley Address Unknown Organization [facility] Address [address] [facility] [address] [place] [address] Phone [phone] Care Team Providers Care Hand Cementer Name Role Phone Dat Kerr MD Unavailable ALEX BRADLEY DO Unavailable ALEX BRADLEY DO Unavailable PROBLEMS Condition Status Date Provider Notes Pulmonary embolism RLL by CT scan at [facility] 16 called active Dat Kerr MD Family [...] In-person encounter Office Visit Dat Kerr MD [facility] PSVT, s/p EPS right atrial tachycardia [...] [place] blood pressure, systolic 128 mm[Hg] [facility] [place] oxygen saturation, oximetry 97 % [facility] [place] respiratory rate E&M 16 /min Jodee O'Candelario pulse rate 67 /min [facility] [place] blood pressure, resting No Hurley taegue O'[place]andelario weight E&M 132 [lb_av] Jodee O'Candelario [...] Chastit y Esau height E&M 63 [in_i] [facility] Body Mass Index (Ratio) 23.91 [...] [lb_av] Chastity Esau height E&M 63 [in_i] [facility] Body Mass Index (Ratio) 23.27 [...] jimenez Jessy oxygen saturation, oximetry 98 % [facility] E&M 16 /min [facility] pulse rate 55 /min [facility] weight E&M 135 [lb_av] [facility] height E&M 63 [in_i] [facility] Body Mass Index (Ratio) 23.56 kg/m2 Roberto [...] Knappby respiratory rate E&M 16 /min Maxine [place] Body Mass Index (Ratio) 22.57 kg/m2 Johnathon [...] mm/h LinkLogic < OR = 30 Normal [facility] [address] [place] [address] [facility] pro brain natriuretic peptide 349 pg/mL [facility] 0-301 High D-dimer quantitative mcg/mL 0.66 MG/L FEU [facility] 0.00-0.49 High lipoprotein, beta, serum, point, quantitative, calculated 70 mg/dL [facility] 0-99 very low density lipoproteins 18 mg/dL [facility] 5-40 HDL cholesterol, serum 89 mg/dL [facility] >39 triglyceride, serum, random 89 mg/dL [facility] 0-149 cholesterol, serum 177 mg/dL [facility] 961-221 5137/08 /09 calcium, serum 9.7 mg/dL [facility] 8.7-10.3 carbon dioxide, venous blood 25 mmol/L [facility] 20-29 chloride, serum 101 mmol/L [facility] 96-106 potassium, serum 4.5 mmol/L [facility] 3.5-5.2 sodium, serum 140 mmol/L [facility] 727-072 7918/08 /09 urea nitrogen/creatin ine ratio, serum 15 [facility] 12-28 eGFR if 97 mL/min/{ 1.73_m2} [facility] >59 eGFR if not 84 mL/min/{ 1.73_m2} [facility] >59 creatinine, serum 0.73 mg/dL [facility] 0.57-1.00 urea nitrogen, blood 11 mg/dL [facility] 8-27 blood glucose, random 80 mg/dL [facility] 65-99 platelet count 210 X10E3/UL [facility] 758-733 2200/08 /08 red blood cell distribution width 12.4 [...] Kerr MD exercise type walking 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 social history reviewed E&M revi ewed - [...] ey FAMILY HISTORY Family Member Condition Mother IA female <65 Mother Family History Coron vickie Heart Disease female < 65: INSURANCE PROVIDERS Payer name Policy type / Coverage type Rosalie red constitution party [place] MED[place] B Medicare [id number] [place] OF [place] Blue Shield [id number] ADVANCE DIRECTIVES Name Date 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 PLAN Date Name Performer [id number],S, Dat Izaguirre ra, [place] [id number],S, Dat Izaguirre ra, [place] [id number],B, Dat Izaguirre ra, [place] [id number],S, Dat Izaguirre ra, [place] [id number],S, Dat Izaguirre ra[place] [id number],S, Dat Izaguirre ra, MD [id number],S, Dat Izaguirre ra, [place] [id number],W, Dat Izaguirre ra, [place] [id number],W, Dat Izaguirre ra, MD [id number],B, Dat Izaguirre ra, [place] [id number],S, n o recurrence o ff OAC Dat Kerr MD [id number],S, n o palpitations Her updated medication list for this problem includes: Metoprolol Succinate 25 Mg Tablet Extended Release 24 Hr (Metoprolol succinate) ..... 1 tablet every night Dat Kerr MD [id number],S, H er updated medication list for this problem includes: Simvastatin 20 Mg Tablet (Simvastatin) ..... Take 1 tablet by mouth nightly Dat Kerr MD [id number],B, f /w Dr. Robert Bueno OE improved with inhaler Dat Kerr MD [id number],S, n o recurrence Dat Kerr MD [id number],W, p t says her PB is usually [...] benefiting from therapy and should continue use. Dat Kerr MD Cardiology Dat Bueno Cardiology: [...] up : O rders: C omplete Echo (CPT-19993) B TYPE NATRIURETIC PEPTIDE (BNP) (70988) D -DIMER, QUANTITATIVE (8659) F VC - 42065 (12393) F RC - 72667 (50328) D LCO - 95873 (21610) 9 9215 HIGH Complex (CPT-28604) Dat Kerr MD Cardiology,follow up : O rders: C omplete Echo (CPT-59593) B TYPE NATRIURETIC PEPTIDE (BNP) (88289) D -DIMER, QUANTITATIVE (8659) F VC - 86706 (22823) F RC - 74169 (22716) D LCO - 30575 (95898) 9 9215 HIGH Complex (CPT-45641) Dat Kerr MD follow up :no recurr [...] daily Dat Kerr MD follow up :last [facility] ked earlier this year H er updated [...] follow up : O rders: Martin KG (CPT-56486) Dat Kerr MD Date Name Stress Echo [...] Venous Doppler Bilat eral LE DLCO - 73043 FRC - 81168 FVC - 80942 D-DIMER, QUANTITATIV E B TYPE NATRIURETIC P EPTIDE (BNP) Complete Echo HISTORY OF PROCEDURES Procedure Date Procedure Name Provider Procedure Notes S tatus EKG Dat Kerr MD complet ed EKG Dat Kerr MD complet ed EKG Dat Kerr MD complet ed EKG Brandon Watkins MD comp leted SNOMED-CT: 529165497703388 Current Medications Documented Brandon Watkins MD completed SNOMED-CT: 738297993122158 Current Medications Documented Dat Kerr MD completed EKG Brandon Watkins MD comp leted SNOMED-CT: 957074639840051 Current Medications Documented Brandon Watkins MD completed Stress EKG Alex Monique MD completed Regadenoson, 4 units Alex Monique MD completed Cardiolite, 2 units Alex Monique MD completed SPECT Images Alex Monique MD completed SNOMED-CT: 883640546009696 Current Medications Documented Dat Kerr MD completed SNOMED-CT: 191227060795211 Current Medications Documented Dat Kerr MD completed SNOMED-CT: 270069403439698 Current Medications Documented Dat Kerr MD completed EKG Dat Kerr MD complet ed SNOMED-CT: 303468775353500 Current Medications Documented Dat Kerr MD completed SNOMED-CT: 860876778701440 Current Medications Documented Dat Kerr MD completed BLOOD COUNT HEMOGLOBIN Dat Kerr MD completed FVC - 13244 Dat Kerr MD comple bradley FRC - 79086 Dat Kerr MD comple bradley DLCO - 18495 Dat Kerr MD compl eted SNOMED-CT: 343550545721149 Current Medications Documented Dat Kerr MD completed EKG Brandon Watkins MD comp leted EKG Dat Kerr MD complet ed
== END 2024-06-09 13:57 | disposition home or self-care (01) ==
PROVIDERS: Emergency Provider Nurse Practitioner Family
DX: N90.7 Vulvar cyst (principal); E78.00 Pure hypercholesterolemia, unspecified; E03.9 Hypothyroidism, unspecified; F32.A Depression, unspecified
CPT/HCPCS: 99213; G0463

== ENCOUNTER 2024-07-13 16:00 | Emergency (ER) | payer MEDICARE, SELFPAY ==
--- NOTE | ~2024-07-13 | XR_ITS ---
XR wrist RT min 3V Ordering provider: Mila Bennett APRN History: . RT wrist pain, fell today hitting a table . Comparison: None. FINDINGS: BONES: Fracture of the distal metaphysis of the right radius with mild posterior angulation. Bony fra gment seen adjacent to the trapezium bone suggestive of a fracture. Osteopenia of the bones. No defin ite scaphoid fracture. JOINT SPACES: Osteoarthritic changes of the first carpometacarpal joint. SOFT TISSUES: Normal. IMPRESSION: Fracture of the distal physis of the right radius. Highly suggestive fracture of the trapezium bone. Reviewed, dictated and finalized at location A. IMPRESSION: Fracture of the distal physis of the right radius. Highly suggestive fracture o f the trapezium bone.
--- NOTE | 2024-07-13 16:02 | ED_ITS ---
HPI - Extremity Injury (Upper) General Chief Complaint: Extremity Injury, Upper Stated Complaint: rt arm injury Time Seen by Provider: 07/13/24 16:01 Source: patient Mode of arrival: ambulatory Limitations: no limitations History of Present Illness HPI narrative: Patient is a 74-year-old female who presents with right wrist pain after tripping over extension cord and landing on disc approximately 3 5 minutes prior to arrival. Patient having right wrist pain with movement and small laceration to palmar aspect of 2nd digit. Patient is on blood thinners. Did not hit head. Related Data Home Medications ?Medication ?Instructions ?Recorded ?Confirmed ?Last Taken ?Type cetirizine 10 mg capsule (Allergy 10 mg PO PRN PRN Allergy Symptoms 07/06/21 07/06/21 Unknown History Relief (cetirizine)) fluoxetine 40 mg capsule 40 mg PO DAILY 07/06/21 07/06/21 Unknown History fluticasone furoate 200 2 inh inhalation DAILY 07/06/21 07/06/21 Unknown History mcg-vilanterol 25 mcg/dose inhalation powder (Breo Ellipta) levothyroxine 50 mcg tablet 50 mcg PO DAILY 07/06/21 07/06/21 Unknown History metoprolol succinate 25 mg 25 mg PO DAILY 07/06/21 07/06/21 Unknown History tablet,extended release 24 hr simvastatin 20 mg tablet 20 mg PO DAILY 07/06/21 07/06/21 Unknown History Allergies Allergy/AdvReac Type Severity Reaction Status Date / Time caffeine (Cafergot) Allergy Unknown chest Verified 06/09/24 13:35 pain/ palpitations. ergotamine Allergy Unknown chest Verified 06/09/24 13:35 pain/ palpitations. Penicillins Allergy Unknown Rash Verified 06/09/24 13:35 potassium chloride Allergy Unknown Hives Verified 06/09/24 13:35 doxycycline AdvReac Unknown yeast Verified 07/13/24 16:13 infection morphine AdvReac Unknown Nausea and Verified 06/09/24 13:35 Vomiting Review of Systems Review of Systems: All systems reviewed & are unremarkable except as noted in HPI and below Constitutional: Constitutional: Denies body ache(s), Denies chills, Denies fatigue, Denies fever(s), Denies headache(s), Denies malaise and Denies weakness Eyes: Eyes: Denies blurry vision, Denies irritation and Denies loss of vision ENT: Denies otalgia, Denies headache(s), Denies nasal discharge, Denies sinus pain and Denies sore throat Cardiovascular: Cardiovascular: Denies chest pain, Denies irregular heart rhythm and Denies dyspnea Respiratory: Respiratory: Denies dyspnea Gastrointestinal: Gastrointestinal: Denies abdominal pain, Denies melena, Denies hematochezia, Denies diarrhea, Denies nausea and Denies vomiting Musculoskeletal: Musculoskeletal: Denies back pain, Denies myalgias and Reports arthralgias Integumentary/Breasts: Skin/Breast: Denies pruritus, Denies rash and Reports wounds Neurologic: Denies headache(s), Denies loss of vision and Denies weakness Psychiatric: Psychiatric: Reports no additional psychiatric complaints Endocrine: Endocrine: Denies fatigue PMFSH Past Medical History Medical History High cholesterol Depression Hypothyroid Heart palpitations Surgical History Surgical History History of atrial septal defect repair Social History Social History Smoking status: Never smoker Alcohol intake: current Gender identity (if verbalized by the patient): Female Comments At time of signature, agree with nursing past medical, surgical, social and family history. There is no relevant family history pertinent to the presenting complaint. Exam Const: General: cooperative, healthy appearing, comfortable, no acute distress and well nourished Nutritional Appearance: well nourished Orientation/consciousness: patient oriented x3 Limitations: no limitations HENMT: Head: normal to inspection, normocephalic and atraumatic Ears: hearing grossly normal bilaterally and external ears normal Face/Nose/Sinus: Normal external nose present, normal facial exam and face symmetric Face and sinus: normal facial exam and face symmetric Mouth: Yes lip normal Eyes: General: appearance normal, both eyes and all related structures Alignment and Position: alignment normal and position normal Periorbital: periorbital findings normal Eyelids: eyelids normal Pupils: Equal, round and reactive pupils present EOM: EOMs intact bilaterally Neck: Neck: normal visual inspection, full ROM and supple Chest: Chest palpation & inspection: normal inspection of the chest Resp: Effort & Inspection: normal respiratory effort and able to speak in complete sentences Auscultation: clear to auscultation bilaterally Cardio: Rate: regular rate Rhythm: regular rhythm Heart sounds: S1 normal heart sound present and S2 normal heart sound present GI: Inspection: normal to inspection Skin: General skin exam: normal color and no rashes or lesions noted Neuro: General: patient oriented x3 and moves all extremities Cranial nerves: Yes Equal, round and reactive pupils present Speech: normal speech Gait exam (Neuro): Normal gait present Extrem: General: normal to inspection, full ROM and no edema Right upper extremity: elbow/forearm normal to inspection and normal ROM; no ecchymosis, wrist tenderness of the distal radius, swelling of the dorsal wrist, abnormal ROM pain with active ROM during with extension, with flexion, with ABduction and with ADduction, ecchymosis wrist dorsolateral single, normal vascular exam and radial pulse present; no unusual warmth and Extremity exam: right hand normal to inspection, neuromotor exam normal thumb opposition normal, thumb IP flexion normal, thumb ADduction normal and fingers 2-5 ABduction normal, neuromotor exam abnormal wrist extension abnormal limited by pain, neurosensory exam normal radial nerve sensory function normal, ulnar nerve sensory function normal, median nerve sensory function normal and digital nerve sensory function normal, tendon exam normal of all digits extensor tendon, flexor digitorum profundus and flexor digitorum superficialis, normal ROM of fingers, no swelling and laceration 2nd digit palmar aspect central linear, involving subcutaneous tissue, with motor nerve function intact and with sensation intact; no tenderness Psych: Appearance: grossly normal and well kempt Mental Status: mental s tatus grossly normal Speech and movement: Normal speech and movement present Affect: normal affect Attitude: cooperative Thought process: Normal thought process present Course Course Emergency Course: Patient is aware of diagnosis, understands and agrees to treatment plan. Anticipatory guidance given. Patient agrees to follow-up as directed and is aware of reasons to seek care at the emergency department. Portions of this record may have been created with voice recognition software Level of Care: Express Care Visit Vital Signs Vital signs: Reviewed Procedures Laceration Laceration 1: Date: 07/13/24 Time: 16:54 Site: hand Side (If applicable): right Size (cm): 1 Description: linear Depth: simple, single layer Pre-repair: irrigated ====== Skin Level ====== Skin layer closed with: dermabond and steri strips ====== Subcutaneous Layer ====== ====== Muscle Layer ====== ====== Tendon Layer ====== Dressing: Procedure explained to patient. Verbal consent obtained. Patient tolerated well Orthopedic Splinting/Casting Injury #1: Splinting/Casting Date: 07/13/24 Splinting/Casting Time: 16:55 Side: right Upper Extremity Injury Location: wrist Upper Extremity Immobilizer: sling/shoulder immobilizer and sugar tong splint Splint: customized in ED OCL: sugar tong Pre-Procedure Neuro Vascular Exam: normal Post-Procedure Neuro Vascular Exam: normal Additional Comments: Procedure explained to patient. Verbal consent obtained. Patient tolerated well MDM - Extremity Injury (Upper) MDM Narrative Medical decision making narrative: Wound cleansed and closed with Dermabond. Patient placed in splint and sling with ortho follow-up. Patient offered stronger pain medication, patient declined and states she will manage pain with Tylenol. tetanus shot updated Pt well hydrated appearing, in no respiratory distress, hemodynamically stable. Recommend supportive care. The patient is stable at time of discharge the clinical impression was discussed and the patient was given the opportunity to ask questions, which were addressed as completely as possible given the information available at present. Anticipatory guidance and return to care precautions were discussed and the importance of primary care follow-up was stressed and encouraged. The patient voiced understanding of the plan, indications to return, and the need for follow-up. Patient is appropriate for outpatient treatment and follow-up. Differential Diagnosis Differential diagnosis: Likely sprain and strain of wrist, fracture of wrist, finger sprain, fracture of hand and other (Finger laceration) Medical Records Attestation: I reviewed the patient's medical records. Imaging Data Radiologist's impression: XR wrist RT min 3V Ordering provider: Mila Bennett APRN History: . RT wrist pain, fell today hitting a table . Comparison: None. FINDINGS: BONES: Fracture of the distal metaphysis of the right radius with mild posterior angulation. Bony fragment seen adjacent to the trapezium bone suggestive of a fracture. Osteopenia of the bones. No definite scaphoid fracture. JOINT SPACES: Osteoarthritic changes of the first carpometacarpal joint. SOFT TISSUES: Normal. IMPRESSION: Fracture of the distal physis of the right radius. Highly suggestive fracture of the trapezium bone. Discharge Plan Discharge Clinical Impression: Fracture of wrist Qualifiers: Encounter type: initial encounter Fracture type: closed Laterality: right Qualified Code(s): S62.101A - Fracture of unspecified carpal bone, right wrist, initial encounter for closed fracture Finger laceration Qualifiers: Encounter type: initial encounter Finger: index finger Damage to nail status: without damage Foreign body presence: without foreign body Laterality: right Q ualified Code(s): S61.210A - Laceration without foreign body of right index finger without damage to nail, initial encounter Patient Disposition: Home Condition: Stable Instructions: Wrist Fracture in Adults (ED), Finger Laceration (ED) Additional Instructions: Please rest, ice and elevate the affected extremity. Please take Motrin 600mg every 8 hours, as needed, for pain (take with food). Follow up with Orthopedic Surgery in 1-2 days for further evaluation - please call for an appointment. Keep splint/cast clean, dry and on. Please use garbage bag while showering to keep splint/cast dry. Use sling/crutches. Please go to ER immediately for increased pain, tingling/numbness, swelling, redness, and fever Skin adhesive care: -adhesive works like a bandage; do not use antibiotic onitment as it can break down the adhesive -You can shower while the adhesive is on your skin, but do not take a bath or soak or scrub the area for 7-10 days. Dry your skin by patting it gently with a towel. -The adhesive will peel off on its own; usually by 5-10days. If after 10 days, you still have adhesive on you, you can use antibiotic ointment or petroleum jelly to get it off. After you heal, you should protect the scar from the sun. Use sunscreen on the area or wear clothes or a hat that covers the scar. Follow up with your PCP is needed Patient Language: Dutch Prescriptions: No Action fluoxetine 40 mg capsule 40 mg PO DAILY levothyroxine 50 mcg tablet 50 mcg PO DAILY simvastatin 20 mg tablet 20 mg PO DAILY Breo Ellipta 200-25 mcg/dose blister with device 2 inh INHALATION DAILY Allergy Relief (cetirizine) 10 mg capsule 10 mg PO PRN PRN (Reason: Allergy Symptoms) metoprolol succinate 25 mg tablet extended release 24 hr 25 mg PO DAILY prednisone 20 mg tablet 40 mg PO DAILY Qty: 10 0RF clindamycin HCl 300 mg capsule 300 mg PO Q8H 10 Days Qty: 30 0RF Follow-up/Referrals: Baldemar,Jerrod Almeida MD [Primary Care Provider] - 1 Week Mynor Reyes MD [Physician] - 3 Days (XR wrist RT min 3V Ordering provider: Mila Bennett APRN History: . RT wrist pain, fell today hitting a table . Comparison: None. FINDINGS: BONES: Fracture of the distal metaphysis of the right radius with mild posterior angulation. Bony fragment seen adjacent to the trapezium bone suggestive of a fracture. Osteopenia of the bones. No definite scaphoid fracture. JOINT SPACES: Osteoarthritic changes of the first carpometacarpal joint. SOFT TISSUES: Normal. IMPRESSION: Fracture of the distal physis of the right radius. Highly suggestive fracture of the trapezium bone.) Time of Disposition: 17:20
[2024-07-13 16:14] VITALS: BP 121/68; PULSE 74; RESP 16; TEMP 36.3; O2SAT 100
--- OUTSIDE RECORDS SUMMARY | 2024-07-13 16:51 | XMS_ITS | Encounter Summary ---
Author Organization [facility] Facility Care Team Providers Care Welder Operator Name Role Phone Jerrod Mcdermott DO Primary Care Provider + Ludmila Man RN Unavailable Encounter Details Date Type Department Care Team (Latest Contact Info) Description 02/09/2017 Orders Only [facility] ProviderOriana MD [address] [place] [id number] Social History Tobacco Use Types Packs/Day Years Used Date Smoking Tobacco: Former Comments Unknown Sex and Gender Information Value Date Recorded Sex Assigned at Not on file Legal Sex Female 2:[address]STALLER Gender Identity Female 08/07/2020 9:24 AM CDT Sexual Orientation Straight 08/07/2020 9: 24 AM CDT documented as of this encounter Plan of Treatment Not on file documented as of this encounter Procedures Procedure Name Priority Date/Time Associated Diagnosis Comments CARDIOLOGY REPORT 02/12/2017 12: [address] INSTALLER documented in this encounter Results * CARDIOLOGY REPORT (02/12/2017 12:[address] SIGN INSTALLER) Anatomical Region Laterality Modality Other Narrative 02/12/2017 12:[address] SIGN INSTALLER Ordered by an unspecified provider. Historical Provider [facility]OW[facility] Final Result documented in this encounter Visit Diagnoses Not on filedocumented in this encounter Additional Health Concerns Infection Onset Date Last Indicated Resolved Time COVID: Suspected 08/07/2020 08/07/2020 08/08/2020 6:26 AM CDT documented as of this encounter Care Teams Welder Operator Relationship Specialty Start Date End Date Jerrod Mcdermott DO [address] [address] PCP - General 05/13/18 Ludmila Man, RN [address] [place] [address] [address] [place] [address] Sheet Tester 03/11/24 04/10/24 documented as of this encounter
--- OUTSIDE RECORDS SUMMARY | 2024-07-13 16:51 | XMS_ITS | Encounter Summary ---
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
--- OUTSIDE RECORDS SUMMARY | 2024-07-13 16:51 | XMS_ITS | Encounter Summary ---
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
--- OUTSIDE RECORDS SUMMARY | 2024-07-13 16:51 | XMS_ITS | Clinical Summary ---
Author Organization [facility] at the Medical Office Building Address [address] [place] [address] Care Team Providers Care Police Patrol Officer Name Role Phone Baldemar Jerrod Melara DO Primary Care Provider + Allergies Active Allergy Reactions Criticality Noted Date Comments Morphine Hallucinations,Nausea & Vomiting Medium Penicillins Hives Medium 02/06/2009 Medications vitamin B complex tablet extended release daily 6 Active multivitamin,tx-ir pc-Zg-WT-min 27-0.4 mg tablet 1 tablet Act iris [...] daily 90 tablet 3 4 025 Active Hospital, Clinic, or Other Facility Administered Medication Ordered Dose Route Frequency Start Date End Date Status lidocaine (XYLOCAINE) 10 mg/mL (1 %) injection 4 mLIndications:Admini stration of Local Anesthesia 4 mL One-Time Injection 06/30/2024 5 Ended triamcinolone (KENALOG) 40 mg/mL injection 80 mgIndications:Primar y osteoarthritis of right knee 80 mg intra-artic One-Time Injection 06/30/2024 5 Ended Active Problems Problem Noted Date Diagnosed Date ABILIO (generalized anxiety disorder) 01/16/2023 PAF (paroxysmal atrial fibrillation) 01/16/2023 Special screening for malignant neoplasms, colon 06/27/2022 Overview (06/27/2022): Added automatically from request for surgery [id number] Asthma 01/30/2021 Elevated blood pressure read ing without diagnosis of hypertension 01/30/2021 Acquired hypothyroidism 05/29/2020 Family history of thyroid disease 05/24/2019 Eyelid cellulitis, right 02/12/2019 Assessment & Plan (02/12/2019 10:04 AM GAMING SURVEILLANCE OBSERVER): Overall Condition: New Acute Problem Treatment: New [...] transient cerebral ischemia - (Added by TW Jacob) Encounters Date Type Department Care Team Description 06/30/2024 11:00 AM CDT Office Visit [facility] Medical [facility] Orthopedics and Sports Medicine [address] [place] [phone] Sharron Howard DO Primary osteoarthritis of right knee (Primary Dx) 06/30/2024 10:36 AM CDT - 06/30/2024 11:59 PM CDT Hospital Encounter [facility] MOB [address] DI[address] [place] [phone] Right knee pain, unspecified chronicity Discharge Disposition: Discharge to home or self care 06/13/2024 Orders Only [facility] Medical [facility] Orthopedics and Sports Medicine [address] [place] [phone] Sharron oHward DO Right knee pain, unspecified chronicity (Primary Dx) 06/09/2024 Nurse Triage [facility] Primary Care [address] [place] [address] Jerrod Mcdermott DO 06/09/2024 Telephone [facility] Primary Care [address] [place] [address] Jerrod Mcdermott, Recommendation Request from Last 3 Months Immunizations Immunization Administration [...] 01/24/2015 Surgical History Surgery Date Site/Laterality Comments OR TONSILLECTOMY PRIMARY/SEC ONDARY <AGE 10 Tonsillectomy - (Added by TW Conv) OR ICAR CATHETER ABLATION ATRIOVENTR NODE FUNCTION Cardiac Catheter His Ablation - (Added by TW Conv) ABDOMINAL HYSTERECTOMY ASD REPAIR age 11 PILONIDAL CYSTECTOMY ABDOMINAL SURGERY abdominalplasty REDUCTION MAMMAPLASTY Medical History Medical History Date Comments Personal history of transien t ischemic attack (TIA), and cerebral infarction without residual deficits History of transient cerebra l ischemia - (Added by NBA Conv) Personal history of other di seases of the digestive system History of constipation - (A dded by NBA Conv) Personal history of other me ntal and behavioral disorders History of depression - (Add ed by NBA Conv) Malignant neoplasm of skin Skin cancer - (Added by NBA Conv) Awareness under anesthesia Hyperlipidemia SVT (supraventricular [...] on file Legal Sex Female 2:08 AM GAMING SURVEILLANCE OBSERVER Gender Identity Female 08/07/2020 9:24 AM CDT Sexual Orientation Straight 08/07/2020 9: 24 AM CDT Obstetrics History Last Filed Vital Signs Vital Sign Reading Time Taken Comments Blood Pressure 124/80 02/10/2024 10:25 AM GAMING SURVEILLANCE OBSERVER Pulse 58 02/10/2024 10:25 AM GAMING SURVEILLANCE OBSERVER Temperature 36.3 C (97.3 F) 02/10/2024 10:25 AM GAMING SURVEILLANCE OBSERVER Respiratory Rate 20 02/10/2024 10:25 AM GAMING SURVEILLANCE OBSERVER Oxygen Saturation 97% 02/10/2024 10:25 AM GAMING SURVEILLANCE OBSERVER Inhaled Oxygen Concentration - - Weight 63 kg (139 lb) 02/10/2024 10:25 AM GAMING SURVEILLANCE OBSERVER Height 158.8 cm (5' 2.5 ) 02/10/2024 10:25 AM CS T Body Mass Index 25.02 02/10/2024 10:25 AM GAMING SURVEILLANCE OBSERVER Plan of Treatment Health Maintenance Due Date Last Done Comments Hepatitis B Screening 1968 Zoster Vaccine (1 of 2) 1998 Covid-19 Vaccine (3 - 2023-2 5 season) 2023 06/19/2020, 05/10/2020 DTaP/Tdap/Td Vaccine [...] Procedure Name Priority Date/Time Associated Diagnosis Comments OR ARTHROCENTESIS ASPIR&/INJ MAJOR JT/BURSA W/O US Routine 06/30/2024 11:00 AM CDT Primary osteoarthritis of right knee XR KNEE RIGHT 3 VIEWS Schedule Routine, Read Routine (OP Routine) 06/30/2024 10:42 AM CDT Right knee pain, unspecified chronicity SCREENING MAMMOGRAM 2D BILATERAL Schedule Routine, Read Routine (OP Routine) 03/10/2024 8:38 AM GAMING SURVEILLANCE OBSERVER DEXA AXIAL SKELETON BONE DENSITY 1 OR MORE SITES Schedule Routine, Read Routine (OP Routine) 03/10/2024 COLONOSCOPY 07/10/2022 9:54 AM CDT HEPATITIS C ANTIBODY Routine 05/24/2019 9:44 AM GAMING SURVEILLANCE OBSERVER Need for hepatitis C screening test from Last 3 Months or Most Recently Relevant to Health Maintenance Results * OR ARTHROCENTESIS ASPIR&/INJ MAJOR JT/BURSA W/O US (06/30/2024 11:00 AM CDT) Narrative Sharron Howard DO - 06/30/2024 11:00 AM CDT Sharron Howard DO 07/03/2024 4:03 PM Large Joint (Hip, Knee, Shoulder) Injection: R knee Performed by: Sharron Howard DO Authorized by: Sharron Howard DO Large Joint Injection/Aspiration: Consent Given by: Patient Verbal consent obtained: Yes Supporting Documentation: Indications: Pain Procedure Details: Location: Knee Site: R knee Needle Size: 22 G Approach: Anterolateral Ultrasound guided: No Fluroscopic guidance: No Medications: 4 mL lidocaine 10 mg/mL (1 %); 80 mg triamcinolone 40 mg/mL Aspirate amount (mL): 0 Patient tolerance: Patient tolerated the procedure well with no immediate complications us Sharron Howard DO IN CLINIC/BEDSIDE ORDERABLES F inal Result * XR Knee Right 3 Views (06/30/2024 10:42 AM CDT) Anatomical Region Laterality Modality Lower Extremities, Knee Right Computed Radiography 07/08/2024 6:55 PM CDT Narrative 07/08/2024 7:12 PM CDT EXAM DESCRIPTION: XR KNEE RIGHT 3 VIEWS REASON FOR STUDY: pain Pain x 6 months, nki FINDINGS: Three views submitted without comparison. No acute fracture. Mild tricompartmental right knee osteoarthritis. Small knee effusion present. Left knee osteoarthritis noted. IMPRESSION: Mild tricompartmental right knee osteoarthritis with a small effusion. THIS IS AN ELECTRONICALLY VERIFIED FINAL REPORT 07/08/2024 7:12 PM - Electronically signed by Jimmie Jeronimo M.D. MF: KELLY Report ID: [id number] Reading Location: [id number] Procedure Note Jimmie Jeronimo MD - 07/08/2024 EXAM DESCRIPTION: XR KNEE RIGHT 3 VIEWS REASON FOR STUDY: pain Pain x 6 months, nki FINDINGS: Three views submitted without comparison. No acute fracture. Mild tricompartmental right knee osteoarthritis.Small knee effusion present. Left knee osteoarthritis noted. IMPRESSION: Mild tricompartmental right knee osteoarthritis with a small effusion. THIS IS AN ELECTRONICALLY VERIFIED FINAL REPORT 07/08/2024 7:12 PM - Electronically signed by Jimmie Jeronimo M.D. MF: KELLY Report ID: [id number] Reading Location: [id number] Sharron Howard DO IMG XR PROCEDURES Final Result * Screening Mammogram 2D Bilateral (03/10/2024 8:38 AM GAMING SURVEILLANCE OBSERVER) SCRIBED BI-RADS 1 Anatomical Region Laterality Modality Breast Bilateral Mammography us Historical Provider MD QUESADA MAMMO PROCEDURES Marcia l Result * Dexa Axial Skeleton Bone Density 1 or 2 Site (03/10/2024) Anatomical Region Laterality Modality Body N/A Radiographic Kelly ging 03/10/2024 Historical Provider MD QUESADA DXA PROCEDURES Final Result * COLONOSCOPY (07/10/2022 9:54 AM CDT) Anatomical Region Laterality Modality Other Narrative Procedure Note Jerrod Mcdermott DO - 07/10/2022 9:54 AM CDT [facility] GI ENDOSCOPY Patient Name: Marilee Shirley Procedure Date: 07/10/2022 9:54 AM Date of : 1950 Admit Type: Outpatient Age: 72 Gender: Female Attending MD: Jerrod Mcdermott D.O. Room: [facility] ENDOSCOPY ROOM 05 Note Status: Finalized Procedure: [...] The scope was passed under direct vision.The CF-[id number] colonoscope was introduced through theanus and advanced [...] medications. - Repeat colonoscopy in 10 years [facility]. Jerrod Mcdermott D.O. 07/10/2022 10:25:33 AM Number of Addenda: 0 Note Initiated On: 07/10/2022 9:54 AM Recognized by the [place] [employer] for promoting quality in endoscopy Jerrod Mcdermott DO ENDOSCOPY PROCEDURES Fin al Result * Hepatitis C antibody (05/24/2019 9:44 AM GAMING SURVEILLANCE OBSERVER) Hep C Ab NONREACT NONREACTIVE [facility] Comment: Siemens QuantConnectaurX using OSMAR (chemiluminescent immunoassay) technology. NONREACTIVE: Antibodies [...] method. Blood specimen (specimen) 05/24/2019 9:44 AM GAMING SURVEILLANCE OBSERVER 05/24/2019 10:05 AM GAMING SURVEILLANCE OBSERVER Narrative Resulting Agency Comment CLI Jerrod Mcdermott DO LAB MICROBIOLOGY - GENER AL ORDERABLES Final Result [facility] [address] [place] [address], [facility] [phone] from Last 3 Months or Most Recently Relevant to Health Maintenance Insurance [facility] MEDICARE [place] [address] [facility] MEDICARE SUPPLEMENT MEDICARE Care Teams Police Patrol Officer Relationship Specialty Start Date End Date Jerrod Mcdermott DO [address] [address] PCP - General 05/13/18
--- OUTSIDE RECORDS SUMMARY | 2024-07-13 16:51 | XMS_ITS | Encounter Summary ---
Author Organization [facility] Facility Care Team Providers Care Demand Planner Name Role Phone Jerrod Mcdermott DO Primary Care Provider + Ludmila Man RN Unavailable Encounter Details Date Type Department Care Team (Latest Contact Info) Description 03/05/2016 Orders Only [facility]INCON[facility] ProviderOriana MD [address] [place] [id number] Social History Tobacco Use Types Packs/Day Years Used Date Smoking Tobacco: Former Comments Unknown Sex and Gender Information Value Date Recorded Sex Assigned at Not on file Legal Sex Female 2:08 AM REGISTRY NURSE Gender Identity Female 08/07/2020 9:24 AM CDT Sexual Orientation Straight 08/07/2020 9: 24 AM CDT documented as of this encounter Plan of Treatment Not on file documented as of this encounter Procedures Procedure Name Priority Date/Time Associated Diagnosis Comments CARDIOLOGY REPORT 03/05/2016 12: 00 AM REGISTRY NURSE documented in this encounter Results * CARDIOLOGY REPORT (03/05/2016 12:00 AM REGISTRY NURSE) Anatomical Region Laterality Modality Other Narrative 03/05/2016 12:00 AM REGISTRY NURSE Ordered by an unspecified provider. Historical Provider [facility] SONU DOWNEY Final Result documented in this encounter Visit Diagnoses Not on filedocumented in this encounter Additional Health Concerns Infection Onset Date Last Indicated Resolved Time COVID: Suspected 08/07/2020 08/07/2020 08/08/2020 6:26 AM CDT documented as of this encounter Care Teams Demand Planner Relationship Specialty Start Date End Date Jerrod Mcdermott DO [address] [address] PCP - General 05/13/18 Ludmila Man, RN [address] [place] [address] [address] [place] [address] Apron Man 03/11/24 04/10/24 documented as of this encounter
--- OUTSIDE RECORDS SUMMARY | 2024-07-13 16:51 | XMS_ITS | Referral Summary ---
Author Organization [facility] at the Medical Office Building Address [address] [place] [phone] Care Team Providers Care Reinforcing Steel Worker Wire Mesh Name Role Phone Jerrod Mcdermott DO Primary Care Provider + Encounters Date Type Department Care Team Description 06/30/2024 10:36 AM CDT - 06/30/2024 11:59 PM CDT Hospital Encounter [facility] MOB 1 DIAG IMG [address] [place] [address] Right knee pain, unspecified chronicity Discharge Disposition: Discharge to home or self care 06/30/2024 11:00 AM CDT Office Visit [facility] Orthopedics and Sports Medicine [address] [place] [phone] Sharron Howard DO Primary osteoarthritis of right knee (Primary Dx) 06/13/2024 Orders Only [facility] Orthopedics and Sports Medicine [address] [place] [phone] Sharron Howard DO Right knee pain, unspecified chronicity (Primary Dx) 06/09/2024 Nurse Triage [facility] Primary Care [address] [place] [phone] Jerrod Mcdermott DO 06/09/2024 Telephone [facility] Primary Care [address] [place] [phone] Jerrod Mcdermott DO Recommendation Request from Last 3 Months Allergies Active Allergy Reactions Criticality Noted Date Comments Morphine Hallucinations,Nausea & Vomiting Medium Penicillins Hives Medium 02/06/2009 Medications vitamin B complex tablet extended release daily 6 Active multivitamin,tx-ir yh-Yu-NY-min 27-0.4 mg tablet 1 tablet Act iris [...] Active Problems Problem Noted Date Diagnosed Date BAILIO (generalized anxiety disorder) 01/16/2023 PAF (paroxysmal atrial fibrillation) 01/16/2023 Special screening for malignant neoplasms, colon 06/27/2022 Overview (06/27/2022): Added automatically from request for surgery [id number] Asthma 01/30/2021 Elevated blood pressure read ing without diagnosis of hypertension 01/30/2021 Acquired hypothyroidism 05/29/2020 Family history of thyroid disease 05/24/2019 Eyelid cellulitis, right 02/12/2019 Assessment & Plan (02/12/2019 10:04 AM MANAGER GAMES): Overall Condition: New Acute Problem Treatment: New [...] on file Legal Sex Female 2:08 AM MANAGER GAMES Gender Identity Female 08/07/2020 9:24 AM CDT Sexual Orientation Straight 08/07/2020 9: 24 AM CDT Last Filed Vital Signs Vital Sign Reading Time Taken Comments Blood Pressure 124/80 02/10/2024 10:25 AM MANAGER GAMES Pulse 58 02/10/2024 10:25 AM MANAGER GAMES Temperature 36.3 C (97.3 F) 02/10/2024 10:25 AM MANAGER GAMES Respiratory Rate 20 02/10/2024 10:25 AM MANAGER GAMES Oxygen Saturation 97% 02/10/2024 10:25 AM MANAGER GAMES Inhaled Oxygen Concentration - - Weight 63 kg (139 lb) 02/10/2024 10:25 AM MANAGER GAMES Height 158.8 cm (5' 2.5 ) 02/10/2024 10:25 AM CS T Body Mass Index 25.02 02/10/2024 10:25 AM MANAGER GAMES Plan of Treatment Not on file Procedures Procedure Name Priority Date/Time Associated Diagnosis Comments [facility] ARTHROCENTESIS ASPIR&/INJ MAJOR JT/BURSA W/O US Routine 06/30/2024 11:00 AM CDT Primary osteoarthritis of right knee XR KNEE RIGHT 3 VIEWS Schedule Routine, Read Routine (OP Routine) 06/30/2024 10:42 AM CDT Right knee pain, unspecified chronicity SCREENING MAMMOGRAM 2D BILATERAL Schedule Routine, Read Routine (OP Routine) 03/10/2024 8:38 AM MANAGER GAMES DEXA AXIAL SKELETON BONE DENSITY 1 OR MORE SITES Schedule Routine, Read Routine (OP Routine) 03/10/2024 COLONOSCOPY 07/10/2022 9:54 AM CDT HEPATITIS C ANTIBODY Routine 05/24/2019 9:44 AM MANAGER GAMES Need for hepatitis C screening test from Last 3 Months or Most Recently Relevant to Health Maintenance Results * [facility] ARTHROCENTESIS ASPIR&/INJ MAJOR JT/BURSA W/O US (06/30/2024 [...] the procedure well with no immediate complications Sharron Howard DO IN CLINIC/BEDSIDE ORDERABLES F [...] Jimmie Jeronimo M.D. MF: KELLY Report ID: [id number] Reading Location: [id number] Procedure Note Jimmie Jeronimo MD - 07/08/2024 [...] Jimmie Jeronimo M.D. MF: KELLY Report ID: [id number] Reading Location: [id number] Sharron Howard DO IMG XR PROCEDURES Final Result * Screening Mammogram 2D Bilateral (03/10/2024 8:38 AM MANAGER GAMES) SCRIBED BI-RADS 1 Anatomical Region Laterality Modality Breast Bilateral Mammography Historical Provider MD QUESADA MAMMO PROCEDURES Marcia l Result * Dexa Axial Skeleton Bone Density 1 or 2 Site (03/10/2024) Anatomical Region Laterality Modality Body N/A Radiographic Kelly ging 03/10/2024 Historical Provider MD QUESADA DXA PROCEDURES Final Result * COLONOSCOPY (07/10/2022 9:54 AM CDT) Anatomical Region Laterality Modality Other Narrative Procedure Note Jerrod Mcdermott DO - 07/10/2022 9:54 AM CDT [facility] GI ENDOSCOPY Patient Name: Marilee Shirley Procedure Date: 07/10/2022 9:54 AM Date of : 1950 Admit Type: Outpatient Age: 72 Gender: Female Attending MD: Jerrod Mcdermott D.O. Room: [facility] ENDOSCOPY ROOM 05 Note Status: Finalized Procedure: [...] The scope was passed under direct vision.The CF-[id number] colonoscope was introduced through theanus and advanced [...] medications. - Repeat colonoscopy in 10 years formerly [facility]. Jerrod Mcdermott D.O. 07/10/2022 10:25:33 AM Number of Addenda: 0 Note Initiated On: 07/10/2022 9:54 AM Recognized by the [place] [employer] for promoting quality in endoscopy Jerrod Mcdermott DO ENDOSCOPY PROCEDURES Fin al Result * Hepatitis C antibody (05/24/2019 9:44 AM MANAGER GAMES) Hep C Ab NONREACT NONREACTIVE [facility] Comment: Siemens IntermediaaurXP using OSMAR (chemiluminescent immunoassay) technology. NONREACTIVE: Antibodies [...] method. Blood specimen (specimen) 05/24/2019 9:44 AM MANAGER GAMES 05/24/2019 10:05 AM MANAGER GAMES Narrative Resulting Agency Comment CLI Jerrod Mcdermott DO LAB MICROBIOLOGY - GENER AL ORDERABLES Final Result [facility] [address] [place] [address], [facility] [phone] from Last 3 Months or Most Recently Relevant to Health Maintenance Insurance [facility] MEDICARE SUPPLEMENT MEDICARE [facility] MEDICARE SUPPLEMENT MEDICARE Care Teams Reinforcing Steel Worker Wire Mesh Relationship Specialty Start Date End Date Jerrod Mcdermott DO [address] [address] PCP - General 05/13/18
--- OUTSIDE RECORDS SUMMARY | 2024-07-13 16:51 | XMS_ITS | Clinical Summary ---
Author Organization [facility] Address [address] [place] [address] Care Team Providers Care Automobile Body Repair Supervisor Name Role Phone Mere Lindo MD Primary Care Provider [phone] Social History Tobacco Use Types Packs/Day Years [...] COVID-19 Vaccine ( season) 2023 06/19/2020, 05/10/2020 DTaP, Tdap and Td Vaccines (2 - Td or Tdap) 01/24/2025 01/24/2015 Pneumococcal Vaccine: 50+ Years Completed 02/04/2023, 12/05/2016, 06/05/2015, Additional history [...] age to complete this topic Insurance MEDICARE [facility] Care Teams Automobile Body Repair Supervisor Relationship Specialty Start Date End Date Mere Lindo MD PCP - General 02/20/13
--- OUTSIDE RECORDS SUMMARY | 2024-07-13 16:51 | XMS_ITS | Clinical Summary ---
Author Organization [facility] Address [address] [place] [address] Phone Care Team Providers Care Crepe Box Tender Name Role Phone Mere Lindo MD Primary Care Provider [phone] Allergies Active Allergy Reactions Criticality Noted Date [...] on file Legal Sex Female 4:47 AM ENVIRONMENTAL PLANNING ENGINEER Gender Identity Not on file Sexual Orientation Not on file Occupation Industry Job Start Date Job End Date Not on file Not on file Not on file Not on file Last Filed Vital Signs Vital Sign Reading Time Taken Comments Blood Pressure 126/48 03/16/2013 6:29 PM ENVIRONMENTAL PLANNING ENGINEER Pulse 59 03/16/2013 6:29 PM ENVIRONMENTAL PLANNING ENGINEER Temperature 36.6 C (97.8 F) 03/16/2013 2:55 PM ENVIRONMENTAL PLANNING ENGINEER Respiratory Rate 18 03/16/2013 6:29 PM ENVIRONMENTAL PLANNING ENGINEER Oxygen Saturation 97% 03/16/2013 6:29 PM ENVIRONMENTAL PLANNING ENGINEER Inhaled Oxygen Concentration - - Weight 57.6 kg (127 lb) 03/16/2013 2:55 PM ENVIRONMENTAL PLANNING ENGINEER Height 157.5 cm (5' 2 ) 03/16/2013 2:55 PM ENVIRONMENTAL PLANNING ENGINEER Body Mass Index 23.23 03/16/2013 2:55 PM ENVIRONMENTAL PLANNING ENGINEER Plan of Treatment Health Maintenance Due Date [...] Sig/CT Colonography Q 5 years Discontinued Insurance [facility] BLUE ACCESS/TRUE BLUE PPO Advance Directives For more information, please contact: [phone] * Full Code (Latest Code Status on File) Date Activated Date Inactivated Comments 03/15/2013 7:33 PM 03/16/2013 12:49 AM * Full Code Date Activated Date Inactivated Comments 03/15/2013 6:33 PM 03/15/2013 7:33 PM * Full Code Date Activated Date Inactivated Comments 02/06/2009 8:09 AM 02/07/2009 2:02 AM Care Teams Crepe Box Tender Relationship Specialty Start Date End Date Mere Lindo MD PCP - General 02/05/09
--- OUTSIDE RECORDS SUMMARY | 2024-07-13 16:52 | XMS_ITS | Continuity of Care Document ---
Author Organization [facility] Address [address] [place] [address] [address] [place] [address] Phone Care Team Providers Care Driver Manager Name Role Phone Laury Martinez Unavailable Unavailable Procedures Procedure Date Eye Exam Established Pt Advance Directives Directive Yes / No Effective Date File Name No Information Encounters Encounter Description Practice Location Reason(s) For Visit Diagnoses Date Provider Providers Copied on Encounter [facility], [address], [place], [place], [id number], [place] tel:[phone] [facility] No Information [address] , [address], [place], [address], [place]. tel:[phone] Referring Provider: Ora Lujan OD, [address] [facility], [place], [address]. tel:[phone] Family History Family Member Type Diagnosis Age At Onset No Information Payers Payer name Insurance type Covered republican ID Authoriza tion(s) No Information Social History [...]
--- OUTSIDE RECORDS SUMMARY | 2024-07-13 16:52 | XMS_ITS | Encounter Summary ---
Author Organization [facility] Address [address] [address] Care Team Providers Care Corporate Relations Manager Name Role Phone Allyn Carson RN Unavailable Jordana Mon MD Primary Care Provider [phone] Jerrod Mcdermott DO Primary Care Provider [phone] Martin Jones MD Unavailable [phone] Dat Kerr MD Unavailable [phone] Jerrod Hernandez MD Unavailable [phone] Encounter Details Date Type Department Care Team (Late st Contact Info) Description 08/07/2016 [facility] Outpatient Visit [facility] Orthopedics - Radiology [address] [place], [place] [id number] Yamilka Vaughn MD [address] [place] [address] Social History Tobacco Use Types Packs/Day Years Used Date Smoking Tobacco: Former Cigarettes 1 30 0 07/13/1970 - 07/13/2000 Smokeless Tobacco: Never Alcohol Use Standard Drinks/Week Comments Yes 5.8 (1 standard drink = 0.6 oz p ure alcohol) Comments Unknown Sex and Gender Information Value Date Recorded Sex Assigned at Not on file Legal Sex Female 2:50 PM CDT Gender Identity Not on file Sexual Orientation Not on file documented as of this encounter Functional Status * Is person deaf or have serious hearing difficulty? Answer Date of Assessment Author No 07/21/2014 6:15 PM CDT Treva Bartlett RN * Is person blind or have serious difficulty seeing? Answer Date of Assessment Author No 07/21/2014 6:15 PM CLEMENTINAT Treva Bartlett RN * Does person have serious difficulty walking/climbing stairs? Answer Date of Assessment Author No 07/21/2014 6:15 PM CLEMENTINAT Treva Bartlett RN * Does person have difficulty dressing/bathing? Answer Date of Assessment Author No 07/21/2014 6:15 PM CDT Treva Bartlett RN * Does person have difficulty doing errands alone? Answer Date of Assessment Author No 07/21/2014 6:15 PM Treva Vincent RN documented as of this encounter Mental Status * Does person have difficulty concentrating/remembering/making decisions? Answer Entry Date Author No 07/21/2014 6:15 PM Treva Vincent RN documented in this encounter Plan of Treatment Upcoming Encounters Date Type Department Care Team (Late st Contact Info) Description 12/14/2024 10:20 AM CDT Office Visit [facility] V[facility] Care [address] [facility], [address] [place] [address] [place] [address] [facility] [address] [place] [address] 02/01/2025 11:00 AM [place] Office Visit [facility] - Pulmonology [address] [facility] [place] [address] [place] [address] [place] [address] [facility] [place] [address] [place] [address] documented as of this encounter Visit Diagnoses Not on filedocumented in this encounter Care Teams Corporate Relations Manager Relationship Specialty Start Date End Date Jordana Mon MD [address] [place] [address] PCP - General Family Medicine 05/30/15 07/11/18 Jerrod Mcdermott DO [address] [address] PCP - General Family Medicine 07/12/18 [place] [address] [facility] [place] [address] [place] [address] Content Producer 07/14/14 07/15/22 [place] [address] [facility] [place] [address] [place] [address] Pulmonary Disease 08/15/20 Dat Kerr MD [address] [place] [address] Cardiovascular Disease 08/15/20 Jerrod Hernandez MD [facility] [place] [address] Urology 08/15/20 documented as of this encounter
--- OUTSIDE RECORDS SUMMARY | 2024-07-13 16:52 | XMS_ITS | Clinical Summary ---
Author Organization [facility] Address [address] [facility] [place] [address] Care Team Providers Care Meter Attendant Name Role Phone Jerrod Mcdermott DO Primary Care Provider [phone] Martin Jones MD Unavailable [phone] Dat Kerr MD Unavailable [phone] Jerrod Hernandez MD Unavailable [phone] Source Comments [facility],non-owned Affiliates and Associated Physician Practices is amultiple site organization consisting of ambulatory clinics and hospital sitesin [place], [place], [place] and [place]. This disclosure is being madepursuant to the Care Everywhere program and may not contain all information available regarding this patient. Last updated 17.[facility] Allergies Active Allergy Reactions Criticality Noted Date Comments Morphine Other Low 07/13/2014 Penicillin G Other Low 08/03/2014 Penicillins 07/13/2014 Medications * Be aware that medications may not be up to date on this document. Alwaysverify current medications with the patient. B COMPLEX VITAMINS PO Take 1 tablet by mouth once daily Active albuterol-ipratr opium (DUO-NEB) 0.5-2.5 (3) MG/3ML nebulizer solutionIndicati ons:Persistent cough,Wheezing Inhale 3 mL by mouth 4 times daily as needed for Shortness of Breath or Wheezing DX: COPD J44.9 1080 mL 1 1 Active vitamin D3 (CHOLECALCIFEROL ) 25 MCG (1000 UNITS) tablet Take 1 (one) tablet by mouth once daily Active levothyroxine (Synthroid) 50 MCG tablet Take 1 (one) tablet by mouth once daily 2 Active multivitamin daily tablet Take 1 (one) tablet by mouth daily with food Active ascorbic acid (Vitamin C) 500 MG tablet Take 1 (one) tablet by mouth once daily Active albuterol HFA (Proventil; Ventolin; Proair) 108 (90 Base) MCG/ACT inhalerIndicatio ns:Upper respiratory tract infection, unspecified type,Wheezing Inhale 2 (two) puffs by mouth every 6 hours as needed for Shortness of Breath, Wheezing or Cough 18 g 5 3 Active escitalopram (Lexapro) 20 MG tablet Take 1 (one) tablet by mouth once daily Active metoprolol tartrate IR (Lopressor) 50 MG tablet Take 1 (one) tablet by mouth once daily 90 tablet 3 4 Active atorvastatin (Lipitor) 80 MG tablet TAKE 1 TABLET BY MOUTH AT BEDTIME 90 tablet 3 4 Active apixaban (Eliquis) 5 MG tablet Take 1 (one) tablet by mouth 2 times daily 90 tablet 3 4 Active fluticasone-tuan nterol (Breo Ellipta) 200-25 MCG/ACT inhalerIndicatio ns:Chronic obstructive pulmonary disease, unspecified COPD type (HCC) Inhale 1 (one) puff by mouth once daily 60 Each 11 5 Active Active Problems Problem Noted Date Diagnosed Date Paroxysmal atrial fibrillation 01/11/2023 Chest pain 07/15/2022 Overview (07/15/2022): Added automatically from request for surgery [id number] Chest pain, unspecified type 07/15/2022 Acute meniscal tear of right knee 08/16/2016 SVT (supraventricular tachycardia) 07/14/2014 Overview (07/14/2014): Added by CDS based on documentation of NSTEMI by the Attending. Encounters Date Type Department Care Team Description 06/08/2024 Telephone [facility] - Pulmonology [address] [address] Martin Jones MD Medication Issue (PA fax for Breo that is not needed) 04/19/2024 Refill [facility] - Pulmonology [address] [place] [address] Martin Jones MD MEDICATION REFILL from Last 3 Months Immunizations Immunization Administration Dates Next Due Covid Moderna primary [...] Recorded Patient Health Questionnaire-2 Score 0 02/03/2024 [facility] [place] [facility] Occupat ional Health - Occupational Stress [...] in a half-way (including now)? No 07/15/2022 Comments No Sex and Gender Information Value Date Recorded Sex Assigned at Not on file Legal Sex Female 2:50 PM CDT Gender Identity Not on file Sexual Orientation Not on file Last Filed Vital Signs Vital Sign Reading Time Taken Comments Blood Pressure 123/66 03/15/2024 10:26 AM METAL GRADER Pulse 63 03/15/2024 10:26 AM METAL GRADER Temperature 36.3 C (97.4 F) 02/03/2024 10:52 AM METAL GRADER Respiratory Rate 18 02/03/2024 10:52 AM METAL GRADER Oxygen Saturation 98% 02/03/2024 10:52 AM METAL GRADER Inhaled Oxygen Concentration - - Weight 61.4 kg (135 lb 6.4 oz) 03/15/2024 10:26 AM METAL GRADER Height 160 cm (5' 2.99 ) 03/15/2024 10:26 AM METAL GRADER Body Mass Index 23.99 03/15/2024 10:26 AM METAL GRADER Plan of Treatment Upcoming Encounters Date Type Department Care Team (Late st Contact Info) Description 12/14/2024 10:20 AM CDT Office Visit [facility] Heart [facility] V[facility] Care [address] [facility], [address] [place] [address] [place] [address] [facility] [address] [place] [id number] 02/01/2025 11:00 AM METAL GRADER Office Visit [facility] - Pulmonology [address] [facility] [address] [place] [address] [place] [address] [facility] [address] [place] [address] Health Maintenance Due Date Last Done Comments BONE DENSITY TESTING 1950 MEDICARE AWV 12 MONTHS 1950 ZOSTER VACCINE (1 of 2) 1998 COVID-19 VACCINE ( - season) 2023 06/19/2020, 05/10/2020 DEPRESSION SCREENING 03/30/2024 02/03/2024 DTAP/TDAP/TD VACCINES (2 - Td or Tdap) 01/24/2025 01/24/2015 PNEUMOCOCCAL VACCINE 50+ Completed 023, 12/05/2016, 06/05/2015, Additional history exists Respiratory Syncytial Virus (RSV) Vaccine Pt: or over 60 yrs Completed 02/16/2023 INFLUENZA VACCINE Completed 02/03/2024, , 02/26/2021, Additional history exists HEPATITIS C SCREENING Completed 02/10/2024 HEPATITIS B VACCINE Aged Out No longe [...] this topic Medical Devices Implanted Type Area Grey Percher Device Identifier Shelf Expiration Date Model / Serial / Lot Sys Cor Stent Sng Xd Mr 2.5mm 32mm Dlv Implanted:Qty: 1 on 07/15/2022 by Duyen Brown MD at [facility] [employer] [facility] [id number] 10/03/2022 [id number] [facility] / NA / [id number] Insurance MEDICARE [facility] MEDIC[facility] Advance Directives * Full Code (Latest Code [...] 5:11 PM 07/14/2014 12:17 PM Care Teams Meter Attendant Relationship Specialty Start Date End Date Jerrod Mcdermott DO [address] [place] [address] PCP - General Family Medicine 07/12/18 [place] [address] [address] Pulmonary Disease 08/15/20 Dat Kerr MD [facility] [place] [address] Cardiovascular Disease 08/15/20 Jerrod Hernandez MD [facility] [place] [address] Urology 08/15/20
--- OUTSIDE RECORDS SUMMARY | 2024-07-13 16:52 | XMS_ITS | CONTINUITY OF CARE DOCUMENT ---
Author Name warren kelley Address Unknown Organization [facility] Address [address] [facility] [address] [place] [address] Phone [phone] Care Team Providers Care Model Maker Name Role Phone Dat Kerr MD Unavailable [phone] ALEX BRADLEY DO Unavailable ALEX BRADLEY DO Unavailable [phone] PROBLEMS Condition Status Date Provider Notes Pulmonary embolism RLL by CT scan at [facility] 05-30-15 called active Dat Kerr MD Family History [...] In-person encounter Office Visit Dat Kerr MD [facility] PSVT, s/p EPS right atrial tachycardia [...] O'Candelario blood pressure, systolic 128 mm[Hg] [facility] O'Candelario oxygen saturation, oximetry 97 % [facility] O'Candelario respiratory rate E&M 16 /min Jodee O'Candelario pulse rate 67 /min [facility] O'Candelario blood pressure, resting No [place] [facility] O'Candelario weight E&M 132 [lb_av] Jodee [...] Chastit y Esau height E&M 63 [in_i] [facility] Body Mass Index (Ratio) 23.91 kg/m2 [...] [lb_av] Chastity Esau height E&M 63 [in_i] [facility] Body Mass Index (Ratio) 23.27 kg/m2 [...] jimenez Jessy oxygen saturation, oximetry 98 % [facility] E&M 16 /min [facility] pulse rate 55 /min [facility] weight E&M 135 [lb_av] [facility] height E&M 63 [in_i] [facility] Body Mass Index (Ratio) 23.56 kg/m2 [...] Liv Dawn height E&M 63 [in_i] Liv Dwan Body Mass Index (Ratio) 22.85 kg/m2 Roberto [...] O'Candelario oxygen saturation, oximetry 97 % Jodee O'Candealrio respiratory rate E&M 16 /min Jodee O'Candelario Body Mass Index (Ratio) 23.20 kg/m2 Oracio Thompson'Candelario weight E&M 131 [lb_av] Jodee O'Candelario blood pressure, diastolic 68 mm[Hg] Dennis Knappby blood pressure, systolic 116 mm[Hg] Travis Knappby pulse rate 54 /min Maxine Knappby oxygen saturation, oximetry 99 % Maxine Knappby respiratory rate E&M 16 /min Maxine [facility] Body Mass Index (Ratio) 22.57 kg/m2 Johnathon [...] mm/h LinkLogic < OR = 30 Normal [facility] [address] [place] [address] [facility] pro brain natriuretic peptide 349 pg/mL [employer] 0-301 High D-dimer quantitative mcg/mL 0.66 MG/L FEU [employer] 0.00-0.49 High lipoprotein, beta, serum, point, quantitative, calculated 70 mg/dL [employer] 0-99 very low density lipoproteins 18 mg/dL [employer] 5-40 HDL cholesterol, serum 89 mg/dL [employer] >39 triglyceride, serum, random 89 mg/dL [facility] 0-149 cholesterol, serum 177 mg/dL [employer] 210-158 7035/08 /09 calcium, serum 9.7 mg/dL [employer] 8.7-10.3 carbon dioxide, venous blood 25 mmol/L [employer] 20-29 chloride, serum 101 mmol/L [employer] 96-106 potassium, serum 4.5 mmol/L [employer] 3.5-5.2 sodium, serum 140 mmol/L [employer] 296-472 2102/08 /09 urea nitrogen/creatin ine ratio, serum 15 [employer]ic 12-28 eGFR if 97 mL/min/{ 1.73_m2} [employer]ic >59 eGFR if not 84 mL/min/{ 1.73_m2} [employer] >59 creatinine, serum 0.73 mg/dL [employer] 0.57-1.00 urea nitrogen, blood 11 mg/dL [employer] 8-27 blood glucose, random 80 mg/dL [employer] 65-99 platelet count 210 X10E3/UL [employer] 288-707 8248/08 /08 red blood cell distribution width 12.4 [...] Kerr MD exercise type walking Darby khan 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 social history reviewed E&M revi ewed - [...] ey FAMILY HISTORY Family Member Condition Mother [place] female <65 Mother Family History Coron vickie Heart Disease female < 65: INSURANCE PROVIDERS Payer name Policy type / Coverage type Rosalie red green party [place] MED[place] B Medicare [id number] BLUE [place] OF [place] Blue Shield [id number] ADVANCE DIRECTIVES Name Date POWER OF BUSINESS PLANNER TREATMENT PLAN Date Name Performer [id number],S, Dat Izaguirre ra, [place] [id number],S, Dat Izaguirre ra, [place] [id number],B, Dat Izaguirre ra, MD [id number],S, Dat Izaguirre ra, MD [id number],S, Dat Izaguirre ra, [place] [id number],S, Dat Izaguirre ra, MD [id number],S, Dat Izaguirre ra, MD [id number],W, Dat Izaguirre ra, MD [id number],W, Dat Izaguirre ra, MD [id number],B, Dat Izaguirre ra, [place] [id number],S, n o recurrence o ff OAC Dat Kerr MD [id number],S, n o palpitations Her updated medication list for this problem includes: Metoprolol Succinate 25 Mg Tablet Extended Release 24 Hr (Metoprolol succinate) ..... 1 tablet every night Dat Kerr MD [id number],S, H er updated medication list for this problem includes: Simvastatin 20 Mg Tablet (Simvastatin) ..... Take 1 tablet by mouth nightly Dat Kerr MD [id number],B, f /w Dr. Robert Bueno OE improved with inhaler Dat Kerr MD [id number],S, n o recurrence Dat Krer MD [id number],W, p t says her PB is usually [...] up : O rders: C omplete Echo (CPT-70251) B TYPE NATRIURETIC PEPTIDE (BNP) (48718) D -DIMER, QUANTITATIVE (8659) F VC - 32276 (93626) F RC - 87340 (58741) D LCO - 51772 (86355) 9 9215 HIGH Complex (CPT-43664) Dat Kerr MD Cardiology,follow up : O rders: C omplete Echo (CPT-07076) B TYPE NATRIURETIC PEPTIDE (BNP) (56724) D -DIMER, QUANTITATIVE (8659) F VC - 31805 (79452) F RC - 11209 (43215) D LCO - 47257 (24231) 9 9215 HIGH Complex (CPT-50904) Dat Kerr MD follow up :no recurr [...] daily Dat Kerr MD follow up :[facility] H er [...] follow up : O rders: Martin KG (CPT-84498) Dat Kerr MD Date Name Stress Echo [...] Venous Doppler Bilat eral LE DLCO - 04948 FRC - 18638 FVC - 67600 D-DIMER, QUANTITATIV E B TYPE NATRIURETIC P EPTIDE (BNP) Complete Echo HISTORY OF PROCEDURES Procedure Date Procedure Name Provider Procedure Notes S tatus EKG Dat Kerr MD complet ed EKG Dat Kerr MD complet ed EKG Dat Kerr MD complet ed EKG Brandon Watkins MD comp leted SNOMED-CT: 734484850123637 Current Medications Documented Brandon Watkins MD completed SNOMED-CT: 357791380086808 Current Medications Documented Dat Kerr MD completed EKG Brandon Watkins MD comp leted SNOMED-CT: 432694109499374 Current Medications Documented Brandon Watkins MD completed Stress EKG Alex Monique MD completed Regadenoson, 4 units Alex Monique MD completed Cardiolite, 2 units Alex Monique MD completed SPECT Images Alex Monique MD completed SNOMED-CT: 902289456099703 Current Medications Documented Dat Kerr MD completed SNOMED-CT: 664310037953672 Current Medications Documented Dat Kerr MD completed SNOMED-CT: 330433793405834 Current Medications Documented Dat Kerr MD completed EKG Dat Kerr MD complet ed SNOMED-CT: 302645250783477 Current Medications Documented Dat Kerr MD completed SNOMED-CT: 484996540098420 Current Medications Documented Dat Kerr MD completed BLOOD COUNT HEMOGLOBIN Dat Kerr MD completed FVC - 57433 Dat Kerr MD comple bradley FRC - 04694 Dat Kerr MD comple bradley DLCO - 37934 Dat Kerr MD compl eted SNOMED-CT: 322223071079765 Current Medications Documented Dat Kerr MD completed EKG Brandon Watkins MD comp leted EKG Dat Kerr MD complet ed
--- OUTSIDE RECORDS SUMMARY | 2024-07-13 16:52 | XMS_ITS | Continuity of Care Document ---
Author Organization [facility] Address [address] [place] [address] [address] [place] [address] Phone Care Team Providers Care Brake Tester Name Role Phone Laury Martinez Unavailable Unavailable Procedures Procedure Date Eye Exam Established Pt Advance Directives Directive Yes / No Effective Date File Name No Information Encounters Encounter Description Practice Location Reason(s) For Visit Diagnoses Date Provider Providers Copied on Encounter [facility], [address], [place], [place], [id number], [place] tel:[phone] [facility]) No Information [address] [facility] [address] , [address], [place], [address], [place]. tel:[phone] Referring Provider: Ora Lujan OD, [address] [facility], [place], [address]. tel:[phone] Family History Family Member Type Diagnosis Age At Onset No Information Payers Payer name Insurance type Covered alliance party ID Authoriza tion(s) No Information Social [...]
--- OUTSIDE RECORDS SUMMARY | 2024-07-13 16:53 | XMS_ITS | CONTINUITY OF CARE DOCUMENT ---
Author Name warren kelley Address Unknown Organization [facility] Address [address] [place] [address] Phone [phone] Care Team Providers Care Roll Weigher Name Role Phone Dat Kerr MD Unavailable [phone] ALEX BRADLEY DO Unavailable ALEX BRADLEY DO Unavailable [phone] PROBLEMS Condition Status Date Provider Notes Pulmonary embolism RLL by CT scan at [facility] 05-30-15 called active Dat Kerr MD Family [...] In-person encounter Office Visit Dat Kerr MD [place] [facility] PSVT, s/p EPS right atrial tachycardia [...] [place] blood pressure, systolic 128 mm[Hg] [facility] [place] oxygen saturation, oximetry 97 % [facility] [place] respiratory rate E&M 16 /min Jodee O'[place]andelario pulse rate 67 /min [facility] [place] blood pressure, resting No [place] weight E&M 132 [lb_av] Jodee [...] Chastit y Esau height E&M 63 [in_i] [facility] Body [facility] Index (Ratio) 23.91 kg/m2 Roberto Kerr MD blood pressure, diastolic 84 mm[Hg] Fe deondre Rvias blood pressure, systolic 130 mm[Hg] Fel icia [...] [lb_av] Chastity Esau height E&M 63 [in_i] [facility] Body Mass Index (Ratio) 23.27 [...] MD blood pressure, diastolic 70 mm[Hg] Jaswinder iJménez blood pressure, systolic 102 mm[Hg] David jimenez Jessy oxygen saturation, oximetry 98 % [facility] E&M 16 /min [facility] pulse rate 55 /min [facility] weight E&M 135 [lb_av] [facility] height E&M 63 [in_i] [facility] Body Mass Index (Ratio) 23.56 kg/m2 Roberto [...] [place] respiratory rate E&M 16 /min Maxine [place] Body Mass Index (Ratio) 22.57 kg/m2 Johnathon [...] mm/h [facility] < OR = 30 Normal [facility] [address] [place] [id number] [facility] pro brain natriuretic peptide 349 pg/mL [facility] 0-301 High D-dimer quantitative mcg/mL 0.66 MG/L FEU [facility] 0.00-0.49 High lipoprotein, beta, serum, point, quantitative, calculated 70 mg/dL [facility] 0-99 very low density lipoproteins 18 mg/dL [facility] 5-40 HDL cholesterol, serum 89 mg/dL [facility] >39 triglyceride, serum, random 89 mg/dL [facility] 0-149 cholesterol, serum 177 mg/dL [facility] 559-154 6438/08 /09 calcium, serum 9.7 mg/dL [facility] 8.7-10.3 carbon dioxide, venous blood 25 mmol/L [facility] 20-29 chloride, serum 101 mmol/L [facility] 96-106 potassium, serum 4.5 mmol/L [facility] 3.5-5.2 sodium, serum 140 mmol/L [facility] 618-121 1083/08 /09 urea nitrogen/creatin ine ratio, serum 15 [facility] 12-28 eGFR if 97 mL/min/{ 1.73_m2} [facility] >59 eGFR if not 84 mL/min/{ 1.73_m2} [facility] >59 creatinine, serum 0.73 mg/dL [facility] 0.57-1.00 urea nitrogen, blood 11 mg/dL [facility] 8-27 blood glucose, random 80 mg/dL [facility] 65-99 platelet count 210 X10E3/UL [facility] 879-556 2612/08 /08 red blood cell distribution width 12.4 [...] Kerr MD exercise type walking Darby khan [employer] 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 social history reviewed E&M revi ewed - [...] ey FAMILY HISTORY Family Member Condition Mother [place] female <65 Mother Family History Coron vickie Heart Disease female < 65: INSURANCE PROVIDERS Payer name Policy type / Coverage type Rosalie red republican [place] Medicare [id number] BLUE SHIELD OF MD Blue Shield [id number] ADVANCE DIRECTIVES Name Date POWER OF GRINDER SET UP OPERATOR EXTERNAL TREATMENT PLAN Date Name Performer [id number],S, Dat Izaguirre ra, [place] [id number],S, Dat Izaguirre ra[place] [id number],B, Dat Izaguirre ra, [place] [id number],S, Dat Izaguirre ra, [place] [id number],S, Dat Izaguirre ra, [place] [id number],S, Dat Izaguirre ra, [place] [id number],S, Dat Izaguirre ra, MD [id number],W, Dat Izaguirre ra, MD [id number],W, Dat Izaguirre ra, MD [id number],B, Dat Izaguirre ra[place] [id number],S, n o recurrence o ff OAC Dat Kerr MD [id number],S, n o palpitations Her updated medication list for this problem includes: Metoprolol Succinate 25 Mg Tablet Extended Release 24 Hr (Metoprolol succinate) ..... 1 tablet every night Dat Kerr MD [id number],S, H er updated medication list for this problem includes: Simvastatin 20 Mg Tablet (Simvastatin) ..... Take 1 tablet by mouth nightly Dat Kerr MD [id number],B, f /w Dr. Robert Bueno OE improved with inhaler Dat Kerr MD [id number],S, n o recurrence Dat Kerr MD [id number],W, p t says her PB is usually [...] morning and one half tablet at night. aDt Kerr MD Cardiology,follow up Dat lora MD Cardiology,follow up Dat lora MD Cardiology,follow up : H er updated medication list for this problem includes: Simvastatin 20 Mg Tabs (Simvastatin) ..... One tab. daily Dat Kerr MD Cardiology,follow up : O rders: C omplete Echo (CPT-55645) B TYPE NATRIURETIC PEPTIDE (BNP) (50705) D -DIMER, QUANTITATIVE (8659) F VC - 93520 (73610) F RC - 89289 (44818) D LCO - 31362 (53819) 9 9215 HIGH Complex (CPT-68562) Dat Kerr MD Cardiology,follow up : O rders: C omplete Echo (CPT-46354) B TYPE NATRIURETIC PEPTIDE (BNP) (79804) D -DIMER, QUANTITATIVE (8659) F VC - 60371 (91521) F RC - 59843 (13936) D LCO - 75198 (50501) 9 9215 HIGH Complex (CPT-22537) Dat Kerr MD follow up :no recurr [...] daily Dat Kerr MD follow up :last [facility] ked earlier this year H er [...] follow up : O rders: Martin KG (CPT-48436) Dat Kerr MD Date Name Stress Echo [...] Venous Doppler Bilat eral LE DLCO - 78257 FRC - 43946 FVC - 05990 D-DIMER, QUANTITATIV E B TYPE NATRIURETIC P EPTIDE (BNP) Complete Echo HISTORY OF PROCEDURES Procedure Date Procedure Name Provider Procedure Notes S tatus EKG Dat Kerr MD complet ed EKG Dat Kerr MD complet ed EKG Dat Kerr MD complet ed EKG Brandon Watkins MD comp leted SNOMED-CT: 655425505541728 Current Medications Documented Brandon Watkins MD completed SNOMED-CT: 100362637362038 Current Medications Documented Dat Kerr MD completed EKG Brandon Watkins MD comp leted SNOMED-CT: 025258602244434 Current Medications Documented Brandon Watkins MD completed Stress EKG Alex Monique MD completed Regadenoson, 4 units Alex Monique MD completed Cardiolite, 2 units Alex Monique MD completed SPECT Images Alex Monique MD completed SNOMED-CT: 801988088814609 Current Medications Documented Dat Kerr MD completed SNOMED-CT: 733601283770641 Current Medications Documented Dat Kerr MD completed SNOMED-CT: 448234429745299 Current Medications Documented Dat Kerr MD completed EKG Dat Kerr MD complet ed SNOMED-CT: 464174937504918 Current Medications Documented Dat Kerr MD completed SNOMED-CT: 632527915490938 Current Medications Documented Dat Kerr MD completed BLOOD COUNT HEMOGLOBIN Dat Kerr MD completed FVC - 87251 Dat Kerr MD comple bradley FRC - 53416 Dat Kerr MD comple bradley DLCO - 85428 Dat Kerr MD compl eted SNOMED-CT: 457620386424598 Current Medications Documented Dat Kerr MD completed EKG Brandon Watkins MD comp leted EKG Dat Kerr MD complet ed
[2024-07-13] MEDS: TETANUS,DIPHTHERIA,AC PERTUSSIS ADULT (0.5 ML) BOOSTRIX IM (17:08)
== END 2024-07-13 17:30 | disposition home or self-care (01) ==
PROVIDERS: Emergency Provider Nurse Practitioner Family; PCP Family Medicine
DX: S52.91XA Unspecified fracture of right forearm, initial encounter for closed fracture (principal); W18.09XA Striking against other object with subsequent fall, initial encounter; S61.210A Laceration without foreign body of right index finger without damage to nail, initial encounter; Z23 Encounter for immunization; E78.00 Pure hypercholesterolemia, unspecified; E03.9 Hypothyroidism, unspecified; F32.A Depression, unspecified
CPT/HCPCS: 12001; 29125; 73110; 90471; 90715; 99214; G0463